=== PATIENT | male | born 1970 | race Two or more races ===

== ENCOUNTER 2020-11-21 11:37 | Outpatient (REF) | payer MEDICAID, SELFPAY ==
--- NOTE | ~2020-11-21 | XR_ITS ---
EXAMINATION: XR FOOT, RIGHT CLINICAL INFORMATION: Pain right first and fourth toes COMPARISON: None TECHNIQUE: AP, lateral, and oblique views of the right foot. FINDINGS: Bone alignment is normal. No acute fracture or dislocation is seen. On the AP view there is question of an old healed oblique fracture of the distal shaft of the fourth metatarsal bone. Joint spaces are normal. Soft tissues are normal. XR/XR foot RT min 3V IMPRESSION: No acute fracture or dislocation seen.
== END 2020-11-21 11:38 | disposition home or self-care (01) ==
LOC: HO.XRAY 11:37
PROVIDERS: Visit Provider Emergency Medicine
DX: M79.674 Pain in right toe(s) (principal)
CPT/HCPCS: 73630

== ENCOUNTER 2021-02-05 11:44 | Outpatient (REF) | payer MEDICAID, SELFPAY ==
--- NOTE | ~2021-02-05 | XR_ITS ---
EXAMINATION: XR SHOULDER, RIGHT CLINICAL INFORMATION: Pain COMPARISON: None TECHNIQUE: AP external rotation, Grashey, scapular Y, and axillary views of the right shoulder. FINDINGS: The bones and soft tissues are normal. No fracture. Glenohumeral and acromioclavicular alignment is anatomic with normal joint space. No abnormal soft tissue calcifications. XR/XR shoulder RT min 2V IMPRESSION: Normal right shoulder.
== END 2021-02-05 11:45 | disposition home or self-care (01) ==
LOC: HO.XRAY 11:44
PROVIDERS: PCP Internal Medicine; Visit Provider Student in an Organized Health Care Education/Training Program
DX: M25.511 Pain in right shoulder (principal)
CPT/HCPCS: 73030

== ENCOUNTER 2021-03-12 12:15 | Emergency (ER) | payer MEDICAID, SELFPAY ==
--- NOTE | ~2021-03-12 | US_ITS ---
EXAMINATION: US SCROTUM CLINICAL INFORMATION: Swelling. COMPARISON: None TECHNIQUE: A sonogram of the scrotum was performed assessing pineda-scale appearance and color Doppler flow. Spectral Doppler analysis of the arterial and venous flow were performed in the testes bilaterally. FINDINGS: RIGHT: Right testicle measures 3.7 x 2.3 x 2.7 cm, volume 12 mL. No focal testicular parenchymal lesions are visualized. Spectral Doppler analysis of the arterial and venous flow is normal in the right testis. Right epididymal head is normal in size. No right hydrocele or varicocele is seen. Right epididymal Doppler flow is normal. LEFT: Left testicle measures 3.5 at 2.1 x 3.0 cm, volume 11.2 mL. No focal testicular parenchymal lesions are visualized. Spectral Doppler analysis of the arterial and venous flow is normal in the left testis. Left epididymal head is normal in size. There is small hypoechoic mass in the tail of the left epididymis No left hydrocele or varicocele is seen. Left epididymal Doppler flow is normal. Incidental finding of a slightly hypervascular lesion in the left epididymal tail measuring 0.7 x 0.7 x 0.6 cm. 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 Differential diagnoses includes sperm granuloma, leiomyoma less likely infection or malignancy Otherwise both testes and the right epididymis appears unremarkable. There is no hydrocele or varicocele.
--- NOTE | ~2021-03-12 | US_ITS ---
EXAMINATION: US SCROTUM CLINICAL INFORMATION: Swelling. COMPARISON: None TECHNIQUE: A sonogram of the scrotum was performed assessing pineda-scale appearance and color Doppler flow. Spectral Doppler analysis of the arterial and venous flow were performed in the testes bilaterally. FINDINGS: RIGHT: Right testicle measures 3.7 x 2.3 x 2.7 cm, volume 12 mL. No focal testicular parenchymal lesions are visualized. Spectral Doppler analysis of the arterial and venous flow is normal in the right testis. Right epididymal head is normal in size. No right hydrocele or varicocele is seen. Right epididymal Doppler flow is normal. LEFT: Left testicle measures 3.5 at 2.1 x 3.0 cm, volume 11.2 mL. No focal testicular parenchymal lesions are visualized. Spectral Doppler analysis of the arterial and venous flow is normal in the left testis. Left epididymal head is normal in size. There is small hypoechoic mass in the tail of the left epididymis No left hydrocele or varicocele is seen. Left epididymal Doppler flow is normal. Incidental finding of a slightly hypervascular lesion in the left epididymal tail measuring 0.7 x 0.7 x 0.6 cm. 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 Differential diagnoses includes sperm granuloma, leiomyoma less likely infection or malignancy Otherwise both testes and the right epididymis appears unremarkable. There is no hydrocele or varicocele.
[2021-03-12 12:41] VITALS: BP 127/86; PULSE 76; RESP 16; TEMP 36.4; O2SAT 96; BMI 34.3
[2021-03-12 14:04] LABS: Glucose Urine UA NEG (NEG); Leukocyte Esterase Urine NEG (NEG); Nitrite Urine NEG (NEG); Specific Gravity - Urine 1.025 (1.005-1.025); Urine Blood TRACE (NEG); Urine Ketones NEG (NEG); Urine Protein NEG (NEG-TRACE)
[2021-03-12 14:09] LABS: Appearance Urine CLEAR; Color Urine STRAW
--- NOTE | 2021-03-12 14:25 | ED.MALEGU ---
HPI - Male Genitourinary General Chief complaint: Urogenital-Male Stated complaint: cyst Time Seen by Provider: 03/12/21 12:43 History of Present Illness HPI Narrative: Patient complains of left testicle lump that is uncomfortable and has been there for several years and is mildly worsening, there is no dysuria there is no fever no vomiting no abdominal pain no discharge Related Data Allergies Allergy/AdvReac Type Severity Reaction Status Date / Time FUMES - DEISEL AdvReac Unknown STUFFY Uncoded 06/15/20 16:44 HEAD, RUNNY NOSE Review of Systems Review of Systems: Testicular lump Negatives are no fever no chills no dizziness no weakness no abdominal pain no dysuria no frequency no burning with urination no discharge no rash no sores Yes all other systems are reviewed and are negative [facility] Past Medical History Source: nursing notes reviewed Medical History (Updated 03/13/21 @ 00:01 by Nir Bain) HTN (hypertension) Testicular lump Vitamin D deficiency Physical Exam Vital Signs: Vital Signs: Last Vital Signs Temp 97.6 F 03/12/21 12:41 Pulse 76 03/12/21 12:41 Resp 16 03/12/21 12:41 BP 127/86 03/12/21 12:41 Pulse Ox 96 03/12/21 12:41 Body Mass Index 34.3 General appearance no acute distress Head normocephalic atraumatic Pharynx moist mucous membranes Neck is supple Respiratory no distress Abdomen soft nontender Genital exam the year is no discharge there are no lesions no sores no hernia I could not palpate the lump but the patient points to it and can palpated himself, there was no other testicular swelling no redness no fluctuance no sign of abscess or cellulitis Course Course Course Narrative: 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 Patient is advised to follow with urologist for confirmation of diagnosis and he will follow closely with Urology MDM - Male Genitourinary Lab Data Labs: Lab Results 03/12/21 03/12/21 Range/Units 13:54 13:55 Urine Color STRAW Urine Appearance CLEAR Urine pH 6.0 (5.0-8.0) Ur Specific Seibert 1.025 (1.005-1.025) Urine Protein NEG (NEG-TRACE) MG/DL Urine Glucose (UA) NEG (NEG) MG/DL Urine Ketones NEG (NEG) MG/DL Urine Blood TRACE (NEG) Urine Nitrite NEG (NEG) Ur Leukocyte Esterase NEG (NEG) Urine RBC 1-4 (0) /HPF Urine WBC 0 (0-4) /HPF Ur Squamous Epith Cells NONE /LPF Urine Bacteria NONE /LPF Chlam trachomat DNA PCR NOT DETECTED (Not Detect.) N.gonorrhoeae DNA (PCR) NOT DETECTED (Not Detect.) Discharge Plan Discharge Clinical Impression: Mass of left testicle Patient Disposition: Home, Self-Care Additional Instructions: The ultrasound showed showed what is likely a benign tumor meaning not cancerous called adenomatoid tumor Follow with urologist for further evaluation and to confirm the diagnosis and for any possible treatment When you call to make her appointment make sure they know you were seen in the ER You may need a referral from primary doctor Return any time any worse condition or concerns Referrals: Bernardo Zhang MD [Physician] - 2 days (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
[2021-03-12 14:35] LABS: WBC Urine 0 /HPF (0-4)
[2021-03-12 17:22] LABS: CT PCR NOT DETECTED (Not Detect.); NG PCR NOT DETECTED (Not Detect.)
== END 2021-03-12 15:12 | disposition home or self-care (01) ==
PROVIDERS: Physician Assistant Medical; Emergency Provider Emergency Medicine Emergency Medical Services; PCP Internal Medicine
DX: N50.9 Disorder of male genital organs, unspecified (principal)
CPT/HCPCS: 76870; 81001; 81003; 87491; 87591; 93975; 99283; 99284

== ENCOUNTER 2021-03-25 13:16 | Emergency (ER) | payer MEDICAID, SELFPAY ==
[2021-03-25 13:48] VITALS: BP 98/68; PULSE 83; RESP 18; TEMP 36.8; O2SAT 94; BMI 34.4
[2021-03-25 15:14] LABS: MANUAL DIFF FLAG NO
[2021-03-25 15:16] LABS: Basophils Percent Auto 0.3 % (0-2); Eosinophils Absolute Auto 0.1 X10*3/uL (0.0-0.4); Eosinophils Percent Auto 0.8 % (0-4); Hematocrit 41.9 % (42-52); Hemoglobin 13.8 g/dl (14.0-18.0); Imm Gran Abs Auto 0.04 X10*3/uL (0.00-0.03); Imm Gran Pct Auto 0.4 % (0.0-0.4); Lymphocytes Absolute Auto 1.6 X10*3/uL (1.2-4.9); Lymphocytes Percent Auto 17.3 % (20-40); Mean Corpuscular HGB Conc 32.9 g/dl (31.0-36.0); Mean Corpuscular Hemoglobin 28.5 pg (27.0-33.0); Mean Corpuscular Volume 86.4 fL (80-98); Mean Platelet Volume 10.2 fL (9.4-12.4); Monocytes Absolute Auto 0.5 X10*3/uL (0.1-1.2); Monocytes Percent Auto 5.4 % (2-11); Neutrophils Absolute Auto 6.8 X10*3/uL (2.0-8.3); Neutrophils Percent Auto 75.8 % (45-73); Platelet Count 288 X10*3/uL (160-400); Red Blood Count 4.85 X10*6/uL (4.60-5.80); Red Cell Distribution Width 14.7 % (11.0-16.0)
--- NOTE | 2021-03-25 15:24 | ED_ITS ---
HPI - General Adult General Chief complaint: Extremity Problem Stated complaint: R ARM PAIN WEAKNESS GOING UP STAIRS Time Seen by Provider: 03/25/21 14:17 Source: patient Mode of arrival: ambulatory Limitations: no limitations History of Present Illness HPI narrative: 51-year-old male presenting to the ED with complaints of acute on chronic right shoulder pain after swimming yesterday no specific injury. Reports he has had this pain in the past and received a shot although he is unsure what type of shot in his right posterior shoulder approximately 6 weeks ago and feels like the effectiveness has worn off and is requesting for repeat shot. Although explained to him I am not aware of what shot he received and if it was a cortisone shot that we do not do cortisone shots here in the emergency department. I also looked in the medical records and I do not see any note from his PCP in our system. He is also requesting blood work done reports he had a few seconds of dizziness yesterday that completely resolved all he was at home and have not returned. He denies any other symptoms complaints or concerns at this time. Related Data Previous Rx's Medication Instructions Recorded cyclobenzaprine 10 mg PO Q8H #10 tab 03/25/21 ibuprofen 800 mg PO Q8H PRN #14 tab 03/25/21 lidocaine HCl [Aspercreme 1 appl TOPICAL BID PRN #120 g 03/25/21 (lidocaine HCl)] Allergies Allergy/AdvReac Type Severity Reaction Status Date / Time FUMES - DEISEL AdvReac Unknown STUFFY Uncoded 06/15/20 16:44 HEAD, RUNNY NOSE Review of Systems Review of Systems: Constitutional : No changes in activity, No lethargy, No recent prior head injury, No agitation, No increased fussiness ENT/Mouth : No Ear Pain, No Nasal discharge/drainage Eyes: No Eye Pain, No Swelling, No Redness, No Foreign Body, No Vision Changes Cardiovascular : No Chest Pain, No SOB Respiratory : No Cough Gastrointestinal : No Nausea, No Vomiting, No abdominal Pain Genitourinary : No Dysuria, No Urinary Frequency, No Urinary Incontinence, No Urgency, No Flank Pain Musculoskeletal : + joint pain, No neck stiffness, No back pain/injury Skin : No lacerations Neuro : Positive Resolved Dizziness, No unsteady gait, No Paresthesias, No Loss of Consciousness, No altered mental status, No Headache Yes all other systems are reviewed and are negative [facility] Past Medical History Attestation statement: The following information was validated with the patient. Medical History HTN (hypertension) Testicular lump Vitamin D deficiency Social History Social History Advance Directives: Yes Advance Directives Information Provided: Yes Advance Directives on File: No Physical Exam Vital Signs: Vital Signs: Last Vital Signs Temp 98.2 F 03/25/21 13:48 Pulse 83 03/25/21 13:48 Resp 18 03/25/21 13:48 BP 98/68 03/25/21 13:48 Pulse Ox 94 03/25/21 13:48 Body Mass Index 34.4 vital signs have been reviewed as normal and appeared to be correct. Blood pressure normal. Heart rate normal. Respiration rate normal. Temperature normal. Oxygen saturation normal. Appearance: Alert. Oriented X3. No acute distress. Head: Normal external exam. Normocephalic. Atraumatic. No Perkins signs noted. No raccoon eyes noted Eyes: PERRLA. EOMI. Conjunctiva and sclera normal. Eyelids normal. ENT: EAC normal. TM's Normal. Pharynx normal. Uvula midline. Moist mucous membr anes. No trismus noted. No drooling noted. No muffled voice noted. Neck: Normal inspection. Neck supple. FROM. No adenopathy. Thyroid Normal. No meningeal signs. No neck mass noted. CVS: Normal heart rate and rhythm. Heart sound normal. Pulses normal throughout. No murmurs/rales/gallops. Respiratory: No respiratory distress. Painless inspiration. Breath sounds normal. No wheezes/rales/rhonchi noted. Chest nontender. No accessory muscle usage noted or decreased air movement noted. Abdomen: Soft and nontender. Bowel sounds normal in all 4 quadrants. No distention noted. No organomegaly noted. No visible injury noted. Back: No CVA tenderness. Full range of motion noted. No rashes/le tiara/induration/fluctuance or signs of infection noted. Skin: Skin warm and dry. Normal skin color. Normal skin turgor. No rashes/lesions/lacerations noted. Extremities: No lower extremity edema. Extremities exhibit normal range of motion. Extremities nontender. Neuro: Oriented X 3. No motor deficit. No sensory deficit. Reflexes normal. Normal steady gait. No focal neuro deficits noted. Vascular: + radial pulses/+ 2 distal pedal pulses/+2 dorsalis pedis b/l. Normal cap refill. No cyanosis noted to upper extremity nails and lower extremity toes nails. Course Course Course Narrative: 14:40pm - 51-year-old male presenting to the ED with complaints of acute on chronic right shoulder pain after swimming yesterday no specific injury. Reports he has had this pain in the past and received a shot although he is unsure what type of shot in his right posterior shoulder approximately 6 weeks ago and feels like the effectiveness has worn off and is requesting for repeat shot. Although explained to him I am not aware of what shot he received and if it was a cortisone shot that we do not do cortisone shots here in the emergency department. I also looked in the medical records and I do not see any note from his PCP in our system. He is also requesting blood work done reports he had a few seconds of dizziness yesterday that completely resolved all he was at home and have not returned. He denies any other symptoms complaints or concerns at this time. Plan: Labs. Then re-evaluate. Reevaluation(s) Reevaluation #1: - Labs returned and at baseline. Will d/c home c symptomatic tx and instructions to f/u c PCP and to return if any new or worsening symptoms. Pt understands and agrees with plan. Time: 15:44 Medical Decision Making Medical Records Medical records reviewed: Yes I reviewed the patient's medical records. Lab Data Lab results reviewed: Yes I reviewed the patient's lab results. Result diagrams: 03/25/21 15:06 03/25/21 15:06 Labs: Lab Results 03/25/21 Range/Units 15:06 WBC 9.0 (4.8-10.8) X10*3/uL RBC 4.85 (4.60-5.80) X10*6/uL Hgb 13.8 L (14.0-18.0) g/dl Hct 41.9 L (42-52) % MCV 86.4 (80-98) fL MCH 28.5 (27.0-33.0) pg MCHC 32.9 (31.0-36.0) g/dl RDW 14.7 (11.0-16.0) % Plt Count 288 (160-400) X10*3/uL MPV 10.2 (9.4-12.4) fL Immature Gran % (Auto) 0.4 (0.0-0.4) % Neut % (Auto) 75.8 H (45-73) % Lymph % (Auto) 17.3 L (20-40) % [place] % (Auto) 5.4 (2-11) % Eos % (Auto) 0.8 (0-4) % Baso % (Auto) 0.3 (0-2) % Lymph # (Auto) 1.6 (1.2-4.9) X10*3/uL [place] # (Auto) 0.5 (0.1-1.2) X10*3/uL Eos # (Auto) 0.1 (0.0-0.4) X10*3/uL Baso # (Auto) 0.0 (0.0-0.2) X10*3/uL Abs Immat Gran (auto) 0.04 H (0.00-0.03) X10*3/uL Absolute Neuts (auto) 6.8 (2.0-8.3) X10*3/uL Absolute Nucleated RBC 0.000 (0.0-0.012) X10*3/uL Nucleated RBC % (auto) 0.0 (0.0-0.2) /100WBC Discharge Plan Discharge Clinical Impression: Right shoulder strain Patient Disposition: Home, Self-Care Instructions: Shoulder Pain (ED) Prescriptions: New cyclobenzaprine 10 mg tablet 10 mg PO Q8H Qty: 10 RF: 0 ibuprofen 800 mg tablet 800 mg PO Q8H PRN (Reason: pain) Qty: 14 RF: 0 lidocaine HCl [Aspercreme (lidocaine HCl)] 4 % cream 1 appl topical BID PRN (Reason: pain) Qty: 120 RF: 0 Referrals: Ricardo Ocampo MD [Primary Care Provider] - 2 days Print Language: Northern Irish
[2021-03-25 15:41] LABS: Alanine Aminotransferase 15 U/L (0-40); Albumin Level 4.8 g/dL (3.5-5.0); Alkaline Phosphatase 62 U/L (39-117); Anion Gap 14 (12-20); Aspartate Amino Transferase 17 U/L (5-37); Bilirubin Total 0.4 mg/dL (0.0-1.0); Blood Urea Nitrogen 23 mg/dL (9-16); Calcium 9.7 mg/dL (8.4-10.2); Carbon Dioxide 27 mmol/L (22-29); Chloride 104 mmol/L (96-108); Creatinine Clr Calc Pharmacy 85.9; Estimated Glomerular Filt Rate > 60; Glucose Random 94 mg/dL (60-115); Magnesium 2.2 mg/dL (1.6-2.6); Potassium 4.4 mmol/L (3.3-5.1); Sodium 141 mmol/L (135-145); Total Protein 7.8 g/dL (6.5-8.0)
== END 2021-03-25 15:52 | disposition home or self-care (01) ==
PROVIDERS: Physician Assistant Medical; Emergency Provider Internal Medicine; PCP Internal Medicine
DX: S46.911A Strain of unspecified muscle, fascia and tendon at shoulder and upper arm level, right arm, initial encounter (principal); X58.XXXA Exposure to other specified factors, initial encounter; Y93.11 Activity, swimming; Y92.9 Unspecified place or not applicable; Y99.9 Unspecified external cause status
CPT/HCPCS: 36415; 80053; 83735; 85025; 99283

== ENCOUNTER → 2021-04-25 10:11 | Outpatient (BNVA) | payer MEDICAID, SELFPAY | PROVIDERS: PCP Internal Medicine; Visit Provider Orthopaedic Surgery | DX: M75.41 Impingement syndrome of right shoulder (principal) | CPT/HCPCS: 99202 ==

== ENCOUNTER 2021-05-24 10:00 | Outpatient (RCR) | payer MEDICAID, SELFPAY ==
--- NOTE | 2021-05-09 13:44 | MHC.PT.EP ---
[facility] [place] Office [place] Office [place] Office [address] Cristina Padron [address] [phone] F: [phone] F: [phone] F: [phone] F: [phone] Physical Therapy Plan of Care Date of Evaluation: Date of Surgery: N/A Diagnosis: R shoulder impingement Assessment: pt's signs and symptoms consistent w/ shoulder impingement w/ questionable tendinitis. pt presents to physical therapy with pain, decreased range of motion, decreased strength, impaired functional mobility, and impaired postural awareness. pt is a good candidate for skilled PT due to age, potential remediation of impairments, typical disease/condition progression and prognosis, comorbidities, and motivation. pt would benefit from tailored strengthening and stretching exercise program, functional training, gait training, postural re-training, neuromuscular re-education, modalities as needed for pain, equipment safety demonstration. Frequency and Duration: The patient will be seen 2x/wk for 4 wks Short Term Goals: pt will be I w/ HEP to promote self-management of condition. pt will improve R shoulder flexion by 15 degrees to promote ease in reaching for objects on higher shelves. Nuclear Medicine Chief Technologist Goals: pt will report a statistically significant improvement in self-reported outcome measure, SPADI, to promote return to PLOF. pt will report <6/10 R shoulder pain w/ lifting/carrying 10# object to promote return to PLOF. Treatment Plan: Modalities to reduce pain, spasms and effusion. Manual therapy to restore motion and function. Therapeutic exercise to improve strength and flexibility. Neuromuscular re-education for posture and balance. Therapeutic activities to return to functional activities of daily living. Electronically signed by: Therese Correa PT, DPT Please sign and return to therapist. Thank you for your referral.
--- NOTE | 2021-06-12 11:24 | MHC.PT.DC ---
[facility] [place] Office [place] Office [place] Office [address] Padron [address] [facility] [phone] F: [phone] F: [phone] F: [phone] F: [phone] Physical Therapy Discharge Report Diagnosis: R shoulder impingement Date of Surgery: N/A Date of Evaluation: 05/09/21 Date of Discharge: 06/12/21 Treatments to Date: 4 Cancellations to Date: 4 No Shows to Date: 2 Discharge Status: Visit Non-compliance Discharge Summary: The patient was reporting an improvement in his shoulder pain with physical therapy intervention. He has had poor attendance and is being discharged for visit non-compliance. His current status is unknown. Electronically signed by: Therese Correa PT, DPT Please sign and return to therapist. Thank you for your referral.
== END 2021-06-12 11:25 | disposition home or self-care (01) ==
LOC: HO.PT 10:00
PROVIDERS: PCP Internal Medicine; Visit Provider Orthopaedic Surgery
DX: M75.41 Impingement syndrome of right shoulder (principal)
CPT/HCPCS: 97110; 97140; 97150; 97161

== ENCOUNTER → 2021-05-25 13:19 | Outpatient (BNVA) | payer MEDICAID, SELFPAY | PROVIDERS: PCP Internal Medicine; Referring Provider Internal Medicine; Visit Provider Urology | DX: R31.29 Other microscopic hematuria (principal); N50.89 Other specified disorders of the male genital organs; I10 Essential (primary) hypertension; E55.9 Vitamin D deficiency, unspecified; T78.49XA Other allergy, initial encounter | CPT/HCPCS: 81002; 99202 ==

== ENCOUNTER 2021-05-25 14:28 | Outpatient (REF) | payer MEDICAID, SELFPAY ==
--- NOTE | ~2021-05-25 | US_ITS ---
EXAMINATION: US RETROPERITONEAL COMPLETE (RENAL) CLINICAL INFORMATION: Microscopic hematuria. COMPARISON: Previous CT of the abdomen and pelvis most recent October 2017 TECHNIQUE: Real-time imaging of the kidneys and bladder. FINDINGS: RIGHT KIDNEY: 11.1 x 5.8 x 5.5 cm (SAG x AP x TRV). The kidney is normal in size, contour, and echogenicity. Renal cortical thickness is normal. No calculi or focal parenchymal lesions. No hydronephrosis. LEFT KIDNEY: 12 x 7 x 5.7 cm (SAG x AP x TRV). The kidney is normal in size, contour, and echogenicity. Renal cortical thickness is normal. There is a large cyst exophytic to the mid to lower pole the left kidney measuring 10.6 x 7.3 x 8.9 cm. No calculi. No hydronephrosis. BLADDER: Well distended and normal. Bilateral ureteral jets are demonstrated. Prevoid bladder volume is 144 mL. Postvoid bladder volume is 10 mL. The prostate gland measures 4.3 x 3.7 x 3.6 cm, volume 30 mL. US/US retroperitoneal comp IMPRESSION: Normal right kidney. Large left renal cyst. Normal bladder. Slightly enlarged prostate gland..
== END 2021-05-25 14:29 | disposition home or self-care (01) ==
LOC: HO.US 14:28
PROVIDERS: PCP Internal Medicine; Visit Provider Urology
DX: R10.9 Unspecified abdominal pain (principal); R31.29 Other microscopic hematuria
CPT/HCPCS: 76770

== ENCOUNTER 2021-07-23 17:05 | Outpatient (REF) | payer MEDICAID, SELFPAY ==
[2021-07-23 17:22] LABS: MANUAL DIFF FLAG NO
[2021-07-23 17:54] LABS: Basophils Percent Auto 0.5 % (0-2); Eosinophils Absolute Auto 0.4 X10*3/uL (0.0-0.4); Eosinophils Percent Auto 4.4 % (0-4); Hematocrit 42.3 % (42-52); Imm Gran Abs Auto 0.03 X10*3/uL (0.00-0.03); Imm Gran Pct Auto 0.4 % (0.0-0.4); Lymphocytes Percent Auto 23.9 % (20-40); Mean Corpuscular HGB Conc 33.1 g/dl (31.0-36.0); Mean Corpuscular Hemoglobin 28.4 pg (27.0-33.0); Mean Corpuscular Volume 85.8 fL (80-98); Mean Platelet Volume 10.3 fL (9.4-12.4); Monocytes Absolute Auto 0.5 X10*3/uL (0.1-1.2); Monocytes Percent Auto 6.3 % (2-11); Neutrophils Absolute Auto 5.3 X10*3/uL (2.0-8.3); Neutrophils Percent Auto 64.5 % (45-73); Platelet Count 307 X10*3/uL (160-400); Red Blood Count 4.93 X10*6/uL (4.60-5.80); Red Cell Distribution Width 14.1 % (11.0-16.0); White Blood Count 8.2 X10*3/uL (4.8-10.8)
[2021-07-23 18:02] LABS: Estimated Average Glucose 111 mg/dL; Hemoglobin A1c % 5.5 %
[2021-07-23 18:15] LABS: Alanine Aminotransferase 12 U/L (0-40); Albumin Level 4.8 g/dL (3.5-5.0); Alkaline Phosphatase 70 U/L (39-117); Anion Gap 14 (12-20); Aspartate Amino Transferase 14 U/L (5-37); Bilirubin Total 0.5 mg/dL (0.0-1.0); Blood Urea Nitrogen 16 mg/dL (9-16); Calcium 9.3 mg/dL (8.4-10.2); Carbon Dioxide 26 mmol/L (22-29); Chloride 102 mmol/L (96-108); Cholesterol 240 mg/dL; Estimated Glomerular Filt Rate > 60; Glucose Random 90 mg/dL (60-115); HDL Cholesterol 51 mg/dL; LDL Cholesterol Calculated 154 mg/dl; Potassium 3.9 mmol/L (3.3-5.1); Sodium 138 mmol/L (135-145); Total Protein 7.7 g/dL (6.5-8.0); Triglycerides 176 mg/dL
[2021-07-23 18:15] LABS: Creatinine Urine 191.22 mg/dL; Microalbum/Creatinine Ratio Ur 7.8 ug/mg cr
[2021-07-23 18:50] LABS: T4 Thyroxine 6.8 ug/dL (4.5-12.0); Thyroid Stimulating Hormone 1.38 uIU/mL (0.32-4.0); Vitamin D 25-OH Total 17.7 ng/mL (>30)
[2021-07-24 18:11] LABS: Triiodothyronine T3 Total 92 ng/dL (76-181)
== END 2021-07-23 17:06 | disposition home or self-care (01) ==
LOC: HO.LAB 17:05
PROVIDERS: PCP Family Medicine; Visit Provider Family Medicine
DX: E66.09 Other obesity due to excess calories (principal); I10 Essential (primary) hypertension
CPT/HCPCS: 36415; 80053; 80061; 82043; 82306; 83036; 84436; 84443; 84480; 85025

== ENCOUNTER 2021-10-05 17:57 | Emergency (ER) | payer MEDICAID, SELFPAY ==
--- NOTE | ~2021-10-05 | US_ITS ---
EXAMINATION: US SCROTUM CLINICAL INFORMATION: Left-sided testicular pain.. COMPARISON: Scrotal ultrasound 03/12/2021 TECHNIQUE: A sonogram of the scrotum was performed assessing pineda-scale appearance and color Doppler flow. Spectral Doppler analysis of the arterial and venous flow were performed in the testes bilaterally. FINDINGS: Small echogenic foci in the parenchyma of both the right and left testicle suggesting microlithiasis. RIGHT: Right testicle measures 3.9 x 2.2 x 2.9 cm, volume 13.1 mL. No focal testicular parenchymal lesions are visualized. Spectral Doppler analysis of the arterial and venous flow is normal in the right testis. Right epididymal head is normal in size. No right hydrocele or varicocele is seen. Right epididymal Doppler flow is normal. LEFT: Left testicle measures 3.6 x 2.3 x 3 cm, volume 13 mL. No focal testicular parenchymal lesions are visualized. Spectral Doppler analysis of the arterial and venous flow is normal in the left testis. The small hypoechoic vascular lesion at the tail of the left epididymis redemonstrated unchanged since 03/12/2021. This currently measures 1.1 x 0.8 x 1.1 cm. Previous measurement 0.9 x 0.7 x 0.9 cm. No left hydrocele or varicocele is seen. US/US scrotum doppler IMPRESSION: 1. No acute abnormality of the right and left testicle. No evidence of testicular torsion. 2. Redemonstration of the hypoechoic vascular mass at the tail the left epididymis.
[2021-10-05 18:28] VITALS: BP 104/72; PULSE 85; RESP 18; TEMP 36.8; O2SAT 95; BMI 33.4
[2021-10-05 21:42] LABS: Appearance Urine CLEAR; Color Urine YELLOW; Glucose Urine UA NEG (NEG); Leukocyte Esterase Urine NEG (NEG); Nitrite Urine NEG (NEG); UACC Culture Trigger NO; Urine Blood TRACE (NEG); Urine Ketones NEG (NEG); Urine Protein NEG (NEG-TRACE)
--- NOTE | 2021-10-05 21:43 | ED_ITS ---
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 Sexually inactive, no penile discharge or lesions otherwise, decline risk for STDs. Patient had this mass evaluated by Dr. Zhang (urologist) determined to be 7 mm epidermoid cyst on the left epididymis and was recommended for excision but patient refuses then. Patient stated that the pain and thighs is getting bigger. Related Data Home Medications Medication Instructions Recorded Confirmed losartan 50 mg tablet 50 mg PO DAILY 04/25/21 cyclobenzaprine 10 mg tablet 10 mg PO Q8H tab 05/25/21 Previous Rx's Medication Instructions Recorded ibuprofen 800 mg tablet 800 mg PO Q8H PRN #14 tab 03/25/21 lidocaine HCl 4 % topical cream 1 appl TOPICAL BID PRN #120 g 03/25/21 (Aspercreme (lidocaine HCl)) diclofenac sodium 75 mg 75 mg PO BID #60 tab 04/25/21 tablet,delayed release Allergies Allergy/AdvReac Type Severity Reaction Status Date / Time FUMES - DEISEL AdvReac Unknown STUFFY Uncoded 10/05/21 18:27 HEAD, RUNNY NOSE Review of Systems Review of Systems: All other systems are reviewed and are negative Constitutional: Reports as per HPI and Reports no additional constitutional complaints Eyes: Reports as per HPI and Reports no additional eye complaints Reports system reviewed and no additional complaints, except as documented Cardiovascular: Reports as per HPI and Reports no additional cardiovascular complaints Respiratory: Reports as per HPI and Reports no additional respiratory complaints Gastrointestinal: Reports as per HPI and Reports no additional gastrointestinal complaints Genitourinary: Reports no additional female genitourinary complaints Musculoskeletal: Reports no additional musculoskeletal complaints Skin/Breast: Reports system reviewed and no additional complaints, except as docu Psychiatric: Reports no additional psychiatric complaints Endocrine: Reports no additional endocrine complaints Hematologic/Lymphatic: Reports no additional hematologic/lymphatic complaints Allergic/Immunologic: Reports no additional allergic/immunologic complaints Reports system reviewed and no additional complaints, except as documented and Reports Abnormal speech present [facility] Past Medical History Medical History HTN (hypertension) Testicular lump Vitamin D deficiency Surgical History History of appendectomy Family History Family History Father Heart disease Mother Heart disease HTN (hypertension) Arthritis Depression Social History Social History Patient Tobacco Use Status: Never used Tobacco Advance Directives: No Advance Directives Information Provided: No Current occupational status: unemployed Physical Exam Vital Signs: Vital Signs: Last Vital Signs Temp 98.2 F 10/05/21 18:28 Pulse 85 10/05/21 18:28 Resp 18 10/05/21 18:28 BP 104/72 10/05/21 18:28 Pulse Ox 95 10/05/21 18:28 BMI result Body Mass Index 33.4 vital signs have been reviewed as appeared to be correct. Blood pressure normal. Heart rate normal. Respiration rate normal. Temperature normal. Oxygen saturation normal. Appearance: Alert. Oriented X3. No acute distress. Head: Normal external exam. Normocephalic. Atraumatic. No Perkins signs noted. No raccoon eyes noted Eyes: PERRLA. EOMI. Conjunctiva and sclera normal. Eyelids normal. ENT: TM's Normal. Pharynx normal. Uvula midline. Moist mucous membranes. No trismus noted. No drooling noted. No muffled voice noted. Neck: Normal inspection. Neck supple. FROM. No adenopathy. Thyroid Normal. No meningeal signs. No neck mass noted. CVS: Normal heart rate and rhythm. Heart sound normal. No murmurs noted. Pulses normal throughout. Respiratory: No respiratory distress. Painless inspiration. Breath sounds normal. No wheezes/rales/rhonchi noted. Chest nontender. No accessory muscle usage noted or decreased air movement noted. Abdomen: Soft and nontender. Bowel sounds normal in all 4 quadrants. No distention noted. No organomegaly noted. No visible injury noted. : Non circumcised, no discharge or lesion is appreciated, mild left testicular tenderness no appreciated mass or cyst. Back: No CVA tenderness. Full range of motion noted. Skin: Skin warm and dry. Normal skin color. Normal skin turgor. No rashes/lesions/lacerations noted. Extremities: No lower extremity edema. Extremities exhibit normal range of motion. Extremities nontender. Neuro: Oriented X 3. Cranial nerve exam: II-XII are grossly intact No motor deficit. No sensory deficit. Reflexes normal. Course Course Course Narrative: Assessment and plan. Left epidermoid mass, previously evaluated by Dr. Zhang he recommended excision but the patient postponed the procedure, the patient returned today for injuries pain and the size of the left testicular pain. Will refer to Dr. Zhang, recommend elevation of the scrotum, avoid standing or sitting for long time, use NSAIDs p.r.n.. MDM - Male Genitourinary Medical Records Attestation: I reviewed the patient's medical records. Lab Data Attestation: I reviewed the patient's lab results. Labs: Lab Results 10/05/21 Range/Units 21:28 Urine Color YELLOW Urine Appearance CLEAR Urine pH 6.0 (5.0-8.0) Ur Specific [place] 1.020 (1.005-1.025) Urine Protein NEG (NEG-TRACE) MG/DL Urine Glucose (UA) NEG (NEG) MG/DL Urine Ketones NEG (NEG) MG/DL Urine Blood TRACE (NEG) Urine Nitrite NEG (NEG) Ur Leukocyte Esterase NEG (NEG) Urine RBC 0-2 (0) /HPF Urine WBC 0 (0-4) /HPF Ur Squamous Epith Cells TRACE /LPF Urine Bacteria TRACE /LPF Hyaline Casts 0-2 /LPF Urine Mucus 3+ /LPF Imaging Data Scrotal ultrasound: Attestation: I personally reviewed and interpreted this imaging study as follows: Radiologist's impression: 1. No acute abnormality of the right and left testicle. No evidence of testicular torsion. 2. Redemonstration of the hypoechoic vascular mass at the tail the left epididymis. Discharge Plan Discharge Clinical Impression: Testicular lump Patient Disposition: Home, Self-Care Instructions: Scrotal Pain (ED) Additional Instructions: avoid sitting or standing for all times. Elevate the scrotum by putting a towel between your psi and restore scrotum on a curb, use ibuprofen 200 mg every 6 hours if needed for pain or swelling. Make sure follow-up with Dr. Zhang as instructed. Prescriptions: No Action ibuprofen 800 mg tablet 800 mg PO Q8H PRN (Reason: pain) Qty: 14 RF: 0 lidocaine HCl [Aspercreme (lidocaine HCl)] 4 % cream 1 appl topical BID PRN (Reason: pain) Qty: 120 RF: 0 cyclobenzaprine 10 mg tablet 10 mg PO Q8H RF: 0 losartan 50 mg tablet 50 mg PO DAILY RF: 0 diclofenac sodium 75 mg tablet,delayed release (DR/EC) 75 mg PO BID Qty: 60 RF: 2 Referrals: Bernardo Zhang MD [Physician] - 2 days
[2021-10-05 21:50] LABS: Hyaline Casts Urine 0-2 /LPF; Mucus Urine 3+ /LPF; Squamous Epithelial Cell Urine TRACE /LPF
[2021-10-05 21:51] LABS: Bacteria Urine TRACE /LPF; RBC Urine 0-2 /HPF (0); WBC Urine 0 /HPF (0-4)
== END 2021-10-05 23:17 | disposition home or self-care (01) ==
PROVIDERS: Emergency Provider Emergency Medicine; PCP Family Medicine
DX: N50.3 Cyst of epididymis (principal)
CPT/HCPCS: 81001; 93975; 99283; 99284

== ENCOUNTER → 2021-10-16 10:47 | Outpatient (BNVA) | payer MEDICAID, SELFPAY | PROVIDERS: Visit Provider Urology ==

== ENCOUNTER 2021-11-12 12:05 | Day surgery (SDC) | payer MEDICAID, SELFPAY ==
[2021-11-06 11:09] VITALS: BMI 34.4
--- NOTE | 2021-11-09 10:21 | HO.ANESPROP2 ---
Documented by User: Francy Singh NP 11/09/21 10:22 HPI - Anesthesia Eval Consult details Narrative: 51yo M for Excision Spermatocele PMFSH Active Problems Active Problems: All Active Problems (Updated 11/06/21 @ 11:10 by Christina Arteaga RN) Rotator cuff impingement syndrome of right shoulder (Acute) Microscopic hematuria (Acute) Flank pain (Acute) Spermatocele of epididymis (Acute) Vitamin D deficiency (Acute) Testicular lump (Acute) HTN (hypertension) (Acute) Past Medical History Medical History BPH (benign prostatic hyperplasia) COVID-19 vaccine series completed HTN (hypertension) Testicular lump Vitamin D deficiency Family History Family History Father Heart disease Mother Heart disease HTN (hypertension) Arthritis Depression Surgical History Surgical History H/O colonoscopy History of appendectomy Hx of cystoscopy Hx of transurethral resection of prostate Social History Social History Patient Tobacco Use Status: Never used Tobacco Use of substances other than those prescribed or required for medical reasons: No Have you been hit, kicked, punched, or otherwise hurt by someone within the past year? If so, by whom?: No Are you DNR?: No Advance Directives: No Advance Directives Information Provided: Yes Advance Directives on File: No Recently lost weight without trying: No Eating poorly because of decreased appetite: No Nutrition Risks: No Nutritional Risk Current occupational status: unemployed Meds Allergies Allergy/AdvReac Type Severity Reaction Status Date / Time fumes - diesel AdvReac Intermediate stuffy Uncoded 11/12/21 12:32 head / runny nose Home Medications Medication Instructions Recorded Confirmed Last Taken Type cyclobenzaprine 10 mg tablet 10 mg PO Q8H tab 05/25/21 11/06/21 Unknown History cholecalciferol (vitamin D3) 50 50 mcg PO DAILY 10/16/21 11/06/21 Unknown History mcg (2,000 unit) tablet (Vitamin D3) valsartan 320 1 tab PO QAM 10/16/21 11/06/21 Unknown History mg-hydrochlorothiazide 25 mg tablet Exam Exam Date and Time: November 09, 2021 1021 Height,Weight and Vital Signs: Height 5 ft 7 in Weight 99.79 kg Pertinent Lab Results Pertinent Lab Results: Laboratory Tests 07/23/21 07/23/21 17:19 17:19 WBC 8.2 Hgb 14.0 Hct 42.3 Plt Count 307 Sodium 138 Potassium 3.9 Chloride 102 Carbon Dioxide 26 BUN 16 Creatinine 1.00 Assessment and Plan Assessment Anesthesia Assessment: Chart Reviewed Documented by User: Leonard Piper 11/12/21 16:56 PMFSH Past Medical History Medical History BPH (benign prostatic hyperplasia) COVID-19 vaccine series completed HTN (hypertension) Testicular lump Vitamin D deficiency Family History Family History Father Heart disease Mother Heart disease HTN (hypertension) Arthritis Depression Family history of problems with anesthesia: No Surgical History Surgical History H/O colonoscopy History of appendectomy Hx of cystoscopy Hx of transurethral resection of prostate History of Problems with Anesthesia: No Social History Social History Patient Tobacco Use Status: Never used Tobacco Use of substances other than those prescribed or required for medical reasons: No Have you been hit, kicked, punched, or otherwise hurt by someone within the past year? If so, by whom?: No Are you DNR?: No Advance Directives: No Advance Directives Information Provided: Yes Advance Directives on File: No Recently lost weight without trying: No Eating poorly because of decreased appetite: No Nutrition Risks: No Nutritional Risk Current occupational status: unemployed Meds Allergies Allergy/AdvReac Type Severity Reaction Status Date / Time fumes - diesel AdvReac Intermediate stuffy Uncoded 11/12/21 12:32 head / runny nose Home Medications Medication Instructions Recorded Confirmed Last Taken Type cyclobenzaprine 10 mg tablet 10 mg PO Q8H tab 05/25/21 11/06/21 Unknown History cholecalciferol (vitamin D3) 50 50 mcg PO DAILY 10/16/21 11/06/21 Unknown History mcg (2,000 unit) tablet (Vitamin D3) valsartan 320 1 tab PO QAM 10/16/21 11/06/21 Unknown History mg-hydrochlorothiazide 25 mg tablet Exam Airway Mallampati Class: IV TM Dist: >3cm Neck ROM: Full Loose/Missing/Broken Teeth: Yes (Fillings ) Heart: rrr Lungs: bl breath sounds Assessment and Plan Assessment Anesthesia Assessment: Anesthesia Plan Discussed Final Anesthetic Review Family History of Problems with Anesthesia: No History of Problems with Anesthesia: No NPO: Yes ASA Class: III Final Preanesthetic Review: Meds/Allgs Chart Reviewed, Consent Obtained/Reviewed and Anes Risks/Benef Reviewed Patient Risk: Intermediate Procedure Risk: Intermediate Anesthetic Plan Anesthetic Plan: GA Disposition: Standard PACU
[2021-11-12 12:32] VITALS: BP 134/87; PULSE 78; RESP 16; TEMP 36.4; O2SAT 94
[2021-11-12] MEDS: Lactated Ringers 1,000 ML 100 ML IVCONT (12:47)
--- NOTE | 2021-11-12 16:29 | MHC.SHP ---
Pre-Procedural Eval Section A Date of Service: 11/12/21 The patient is an INPATIENT: No Changes since office visit: No Cold of Flu in the past 2 weeks, No New Medical Problems, No Changes in Medication and No Patient answered all questions The History & Physical has been completed within 30 days and I have reviewed it.: Yes Section B Chief Complaint: spermatocele of epididymis Details of Present Illness: Left side Allergies: Allergies Allergy/AdvReac Type Severity Reaction Status Date / Time fumes - diesel AdvReac Intermediate stuffy Uncoded 11/12/21 12:32 head / runny nose Plan Diagnosis/Plan: Unchanged ( left side spe) I have reviewed the history and physical and performed a pertinent physical examination on my patient. No changes have occurred unless specified.
--- NOTE | 2021-11-12 17:24 | P.OP_ITS ---
Operative Note Operative Note Date of Service: 11/12/21 Narrative: PreOperative Diagnosis: lump at tail of left epididymis Post Operative Diagnosis: fibrous scarring at tail of left epididymis Procedure: epididymal mass removal Surgeon: Dr Bernardo Zhang Anesthesia: general Indications for procedure: 51-year-old male. Palpable 1 cm mass in the distal tail of the left epididymis. Ultrasound showed question of epididymal cyst. This has been irritating and he would like it removed. Understands it is a surgical procedure. Procedure: After informed consent was verified the patient was brought to the operating room and placed in a supine position. Anesthesia was administered per protocol. patient was placed in supine position and prepped and draped in sterile fashion. Safety pause time-out was performed. Antibiotics being given. Local anesthetic infiltrated in the skin in transverse fashion on the left testicular skin. Incision was taken down to the tunica. The tunica appeared to be adhered tightly to the testicle. The testicle of been delivered through the incision. This is likely as result of prior inflammation in may explain the small 1 cm mass the distal portion of the epididymis as scarring after infection. The fibrous mass was removed. It had distinct boundaries. It did not appear to be malignant in any way. Is sent for final pathology. The area was oversewn with a running 3-0 Vicryl suture. The testicle was placed back in the scrotal sac. The subcutaneous tissue layers were closed with a runn ing 3-0 Vicryl. Skin was closed with series of interrupted 3-0 chromic sutures. Patient tolerated the procedure well was extubated in operating room transferred in stable condition to the recovery area. Pathology: Epididymal fibrous tissue Drains: none
[2021-11-12 17:39] VITALS: BP 130/89; PULSE 87; RESP 17; TEMP 36.4; O2SAT 99
[2021-11-12 17:44] VITALS: BP 132/87; PULSE 78; RESP 18; O2SAT 95
[2021-11-12 17:49] VITALS: BP 136/90; PULSE 75; RESP 18; O2SAT 96
[2021-11-12] MEDS: Acetaminophen 325 MG TABLET 650 MG PO (17:49)
[2021-11-12 17:54] VITALS: BP 119/77; PULSE 77; RESP 18; O2SAT 94
[2021-11-12] MEDS: traMADoL HCL 50 MG TABLET PO (17:57)
[2021-11-12 18:09] VITALS: BP 120/86; PULSE 78; RESP 20; TEMP 36.4; O2SAT 98
== END 2021-11-12 19:12 | disposition home or self-care (01) ==
PROVIDERS: PCP Family Medicine; Visit Provider Urology
PROC: (CPT 54840; principal; 2021-11-12 14:10)
DX: D29.32 Benign neoplasm of left epididymis (principal); N50.812 Left testicular pain; I10 Essential (primary) hypertension; E55.9 Vitamin D deficiency, unspecified; Z79.1 Long term (current) use of non-steroidal anti-inflammatories (NSAID); Z79.899 Other long term (current) drug therapy
CPT/HCPCS: 54830; 88304; 88305; 88341; 88342; 88360; J0690; J1100; J2250; J2405; J3010

== ENCOUNTER → 2021-12-14 15:19 | Outpatient (BNVA) | payer MEDICAID, SELFPAY | PROVIDERS: PCP Family Medicine; Visit Provider Urology | DX: N40.0 Benign prostatic hyperplasia without lower urinary tract symptoms (principal); N43.40 Spermatocele of epididymis, unspecified | CPT/HCPCS: 99212 ==

== ENCOUNTER 2022-02-27 15:35 | Outpatient (REF) | payer MEDICAID, SELFPAY ==
--- NOTE | ~2022-02-27 | US_ITS ---
EXAMINATION: US SCROTUM CLINICAL INFORMATION: Hydrocele, unspecified. COMPARISON: Ultrasound scrotum 10/05/2021. TECHNIQUE: A sonogram of the scrotum was performed assessing pineda-scale appearance and color Doppler flow. Spectral Doppler analysis of the arterial and venous flow were performed in the testes bilaterally. FINDINGS: RIGHT: Right testicle measures 3.7 x 2.1 x 2.9 cm, volume 11.8 mL. Again noted microlithiasis. Spectral Doppler analysis of the arterial and venous flow is normal in the right testis. Right epididymal head is normal in size. No right hydrocele or varicocele is seen. Right epididymal Doppler flow is normal. LEFT: Left testicle measures 3.7 x 2.1 x 3.0 cm, volume 12.2 mL. Again noted microlithiasis. Spectral Doppler analysis of the arterial and venous flow is normal in the left testis. Left epididymal head is normal in size. Redemonstration of a predominantly hypoechoic lesion at the tail of the left epididymis measuring 0.8 x 0.8 x 0.6 cm, previously 1.1 x 0.8 x 1.1 cm (10/05/2021) and 0.7 x 0.7 x 0.6 cm (03/12/2021). No left hydrocele or varicocele is seen. Left epididymal Doppler flow is normal. US/US scrotum IMPRESSION: Overall, not significantly changed within a predominantly hypoechoic lesion in the left epididymal tail. Continued follow-up per clinical discretion. Redemonstration of bilateral microlithiasis.
== END 2022-02-27 15:36 | disposition home or self-care (01) ==
LOC: HO.US 15:35
PROVIDERS: Visit Provider Urology
DX: N50.89 Other specified disorders of the male genital organs (principal); N43.3 Hydrocele, unspecified
CPT/HCPCS: 76870

== ENCOUNTER → 2022-03-15 15:01 | Outpatient (BNVA) | payer MEDICAID, SELFPAY | PROVIDERS: PCP Family Medicine; Visit Provider Urology | DX: N40.0 Benign prostatic hyperplasia without lower urinary tract symptoms (principal); N43.40 Spermatocele of epididymis, unspecified; N39.43 Post-void dribbling | CPT/HCPCS: 52000; 99212 ==

== ENCOUNTER 2022-03-23 09:19 | Outpatient (REF) | payer MEDICAID, SELFPAY | END 2022-03-23 09:20 | disposition home or self-care (01) | LOC: HO.LAB 09:19 | PROVIDERS: PCP Family Medicine; Visit Provider Family Medicine | DX: Z13.89 Encounter for screening for other disorder (principal) ==

== ENCOUNTER 2022-03-30 09:07 | Outpatient (REF) | payer MEDICAID, SELFPAY | END 2022-03-30 09:08 | disposition home or self-care (01) | LOC: HO.LNP 09:07 | PROVIDERS: Visit Provider Family Medicine | DX: R05.9 Cough, unspecified (principal) | CPT/HCPCS: 87338 ==

== ENCOUNTER 2022-04-17 17:54 | Outpatient (REF) | payer MEDICAID, SELFPAY ==
[2022-04-17 18:09] LABS: Hemoglobin 12.8 g/dl (14.0-18.0); Mean Corpuscular HGB Conc 32.8 g/dl (31.0-36.0); Mean Corpuscular Hemoglobin 27.6 pg (27.0-33.0); Mean Corpuscular Volume 84.1 fL (80.0-98.0); Mean Platelet Volume 9.8 fL (9.4-12.4); Platelet Count 328 X10*3/uL (160-400); Red Blood Count 4.64 X10*6/uL (4.60-5.80); Red Cell Distribution Width 15.3 % (11.0-16.0)
[2022-04-17 18:11] LABS: Estimated Average Glucose 108 mg/dL; Hemoglobin A1c % 5.4 %
[2022-04-17 18:16] LABS: Alanine Aminotransferase 15 U/L (0-40); Albumin Level 4.6 g/dL (3.5-5.0); Alkaline Phosphatase 73 U/L (39-117); Anion Gap 14 (12-20); Aspartate Amino Transferase 14 U/L (5-37); Bilirubin Total 0.3 mg/dL (0.0-1.0); Blood Urea Nitrogen 19 mg/dL (9-16); Calcium 8.9 mg/dL (8.4-10.2); Carbon Dioxide 20 mmol/L (22-29); Chloride 107 mmol/L (96-108); Estimated Glomerular Filt Rate > 60; Glucose Random 95 mg/dL (60-115); Potassium 4.2 mmol/L (3.3-5.1); Sodium 137 mmol/L (135-145); Total Protein 7.4 g/dL (6.5-8.0)
[2022-04-17 18:36] LABS: Thyroid Stimulating Hormone 2.04 uIU/mL (0.32-4.0); Vitamin D 25-OH Total 33.9 ng/mL (>30)
[2022-04-18 06:50] LABS: CT PCR NOT DETECTED (Not Detect.); NG PCR NOT DETECTED (Not Detect.)
== END 2022-04-17 17:55 | disposition home or self-care (01) ==
LOC: HO.LAB 17:54
PROVIDERS: Visit Provider Family Medicine
DX: Z11.3 Encounter for screening for infections with a predominantly sexual mode of transmission (principal); R53.81 Other malaise
CPT/HCPCS: 80053; 82306; 83036; 84443; 85027; 87491; 87591

== ENCOUNTER 2022-05-03 16:46 | Outpatient (REF) | payer MEDICAID, SELFPAY ==
--- NOTE | ~2022-05-03 | XR_ITS ---
EXAMINATION: XR KNEE, LEFT CLINICAL INFORMATION: Left knee pain COMPARISON: Radiographs left knee 11/09/2013 TECHNIQUE: AP and lateral views of the left knee. FINDINGS: Normal bony mineralization. No fracture, dislocation, destructive process, or arthropathy. No joint narrowing or erosive change or chondrocalcinosis. No suprapatellar effusion. Hoffa's fat pad appears normal. XR/XR knee LT 2V IMPRESSION: Normal left knee.
== END 2022-05-03 16:47 | disposition home or self-care (01) ==
LOC: HO.XRAY 16:46
PROVIDERS: PCP Family Medicine; Visit Provider Family Medicine
DX: M25.562 Pain in left knee (principal)
CPT/HCPCS: 73560

== ENCOUNTER 2022-06-07 16:11 | Outpatient (REF) | payer MEDICAID, SELFPAY ==
[2022-06-07 16:32] LABS: MANUAL DIFF FLAG NO
[2022-06-07 17:01] LABS: Basophils Absolute Auto 0.1 X10*3/uL (0.0-0.2); Basophils Percent Auto 0.8 % (0-2); Eosinophils Absolute Auto 0.5 X10*3/uL (0.0-0.4); Eosinophils Percent Auto 5.9 % (0-4); Hematocrit 40.6 % (42.0-52.0); Hemoglobin 13.3 g/dl (14.0-18.0); Imm Gran Abs Auto 0.03 X10*3/uL (0.00-0.03); Imm Gran Pct Auto 0.4 % (0.0-0.4); Lymphocytes Absolute Auto 1.7 X10*3/uL (1.2-4.9); Lymphocytes Percent Auto 21.7 % (20-40); Mean Corpuscular HGB Conc 32.8 g/dl (31.0-36.0); Mean Corpuscular Hemoglobin 27.4 pg (27.0-33.0); Mean Corpuscular Volume 83.7 fL (80.0-98.0); Mean Platelet Volume 10.1 fL (9.4-12.4); Monocytes Absolute Auto 0.6 X10*3/uL (0.1-1.2); Monocytes Percent Auto 7.5 % (2-11); Neutrophils Absolute Auto 5.1 x10*3/uL (2.0-8.3); Neutrophils Percent Auto 63.7 % (45-73); Platelet Count 312 X10*3/uL (160-400); Red Blood Count 4.85 X10*6/uL (4.60-5.80); Red Cell Distribution Width 13.9 % (11.0-16.0)
[2022-06-07 17:25] LABS: Iron 87 mcg/dL (45-160); Percent Iron Saturation 27 % (15-50); Total Iron Binding Capacity 320 mcg/dL (228-428); Unsaturated Iron Binding 233 ug/dL
[2022-06-07 17:47] LABS: Ferritin 258 ng/mL (20-250)
== END 2022-06-07 16:12 | disposition home or self-care (01) ==
LOC: HO.LAB 16:11
PROVIDERS: Visit Provider Family Medicine
DX: D64.9 Anemia, unspecified (principal)
CPT/HCPCS: 36415; 82728; 83540; 85025

== ENCOUNTER 2022-06-24 05:56 | Outpatient (REF) | payer MEDICAID, SELFPAY ==
--- NOTE | ~2022-06-24 | XR_ITS ---
EXAMINATION: XR KNEE AP STANDING XR KNEE, LEFT CLINICAL INFORMATION: Left knee pain COMPARISON: 05/03/2022 TECHNIQUE: AP bilateral standing view of the knees was obtained. Catharine view of the left knee. FINDINGS: No joint space narrowing. No fracture is evident. No significant change. XR/XR knee standing BI IMPRESSION: Unremarkable study.
--- NOTE | ~2022-06-24 | XR_ITS ---
EXAMINATION: XR KNEE AP STANDING XR KNEE, LEFT CLINICAL INFORMATION: Left knee pain COMPARISON: 05/03/2022 TECHNIQUE: AP bilateral standing view of the knees was obtained. Mescal view of the left knee. FINDINGS: No joint space narrowing. No fracture is evident. No significant change. XR/XR knee LT 1V IMPRESSION: Unremarkable study.
== END 2022-06-24 05:57 | disposition home or self-care (01) ==
LOC: HO.HOSX 05:56
PROVIDERS: Visit Provider Physician Assistant
DX: M17.12 Unilateral primary osteoarthritis, left knee (principal)
CPT/HCPCS: 73560; 73565; 99202

== ENCOUNTER → 2022-09-11 16:24 | Outpatient (BNVA) | payer MEDICAID, SELFPAY | PROVIDERS: PCP Family Medicine; Visit Provider Nurse Practitioner | DX: Z01.818 Encounter for other preprocedural examination (principal); K59.04 Chronic idiopathic constipation; K64.9 Unspecified hemorrhoids | CPT/HCPCS: 99202 ==

== ENCOUNTER → 2022-09-18 15:44 | Outpatient (REF) | payer MEDICAID, SELFPAY | LOC: HO.SL 15:44 | PROVIDERS: PCP Family Medicine; Visit Provider Family Medicine | DX: G47.33 Obstructive sleep apnea (adult) (pediatric) (principal) | CPT/HCPCS: 95806 ==

== ENCOUNTER → 2022-09-27 15:57 | Outpatient (BNVA) | payer MEDICAID, SELFPAY | PROVIDERS: PCP Family Medicine; Visit Provider Urology | DX: N40.1 Benign prostatic hyperplasia with lower urinary tract symptoms (principal); N39.43 Post-void dribbling; R31.29 Other microscopic hematuria | CPT/HCPCS: 99212 ==

== ENCOUNTER 2022-11-19 07:42 | Day surgery (SDC) | payer MEDICAID, SELFPAY ==
[2022-11-12 14:16] VITALS: BMI 35.4
[2022-11-19 07:53] VITALS: BMI 33.4
[2022-11-19 08:06] VITALS: BP 121/78; PULSE 73; RESP 15; TEMP 36.7; O2SAT 95
[2022-11-19] MEDS: Lactated Ringers 1,000 ML 50 ML IVCONT (08:15)
--- NOTE | 2022-11-19 08:33 | MHC.SHP ---
Pre-Procedural Eval Section A Date of Service: 11/19/22 Section B Chief Complaint: Screening Details of Present Illness: PMX Obstructive sleep apnea Hypertension GERD Hematospermia History of infectious colitis Sacral arthritis Obesity Family history of colon cancer SURGICAL HISTORY Appendectomy Nasal polypectomy Colonoscopy-2011 [facility] Relevant Family History (Specify if Yes): No Relevant Social History: None Present Medications: see Short Stay Collaborative assessment Medical History: Significant History (as above ) History of Previous Operations: Relevant previous surgery/procedure and date(s) (as above ) Allergies: Allergies Allergy/AdvReac Type Severity Reaction Status Date / Time No Known Allergies Allergy Verified 11/19/22 07:52 Review of Systems Review of Systems Comment: 10 point ROS negative Exam Exam Comment: Gen appear: No acute distress HEENT: no icterus Chest: No overt resp distress Abd: soft, nontender, nondistended Psych: Stable affect, answering questions appropriately Neuro: A/Ox3 noted to move all extremities spontaneously Ext: no peripheral edema Plan Diagnosis/Plan: Unchanged I have reviewed the history and physical and performed a pertinent physical examination on my patient. No changes have occurred unless specified. Time Spent With Patient Time: Total time managing care of this patient today ____ minutes.
--- NOTE | 2022-11-19 08:35 | P.OP_ITS ---
Operative Note Operative Note Date of Service: 11/19/22 Narrative: Procedure: Colonoscopy Indication: Screening Endoscopist: Imelda Brunson MD Anesthesia Provider: Dr Jennifer Ramirez Anesthesia type: MAC Instrument: Olympus [id number]-[id number] Consent: Indication, risks vs benefits, and alternatives were discussed with the patient who gave written informed consent to proceed. EKG, pulse, pulse oximetry and blood pressure were monitored throughout the procedure. Please see anesthesia flowsheet. Procedure: The patient was brought to the procedure room and placed in the left lateral decubitus position. IV medications were administered by the anesthesia provider in attendance. A digital rectal exam was performed which was normal. The colonoscope was then inserted through the anus and advanced through the colon to the cecum at 80 cm. Mucosa was carefully examined under high definition white light as the instrument was slowly withdrawn in a retrograde panoramic fashion. Ascending colon was intubated twice. Retroflexion was performed in rectum. The procedure was not difficult. There were no immediate obvious complications. The quality of the prep was BBPS: 2+2+2 = adequate Withdrawal time 14 minutes. Limitations: No limitations. Findings: Mucosa: Normal to cecum. Protruding lesions: * 2 sessile polyp of size 2-3 mm in ascending colon. Cold snare polypectomy was performed. The polyps were completely removed and retrieved. * 1 sessile polyp of size 6 mm in transverse colon. Cold snare polypectomy was performed. The polyp was completely removed and retrieved. * Medium internal hemorrhoids without stigmata of recent bleeding. Excavated lesions: * Moderate diverticulosis of left sided colon. Impression: 1. Normal colon mucosa 2. Total of 3 polyps removed from ascending and transverse colon. 3. Internal hemorrhoids 4. Diverticulosis Recommendations: - Follow path results. - Repeat colonoscopy in 3 years if all polyps are adenomas otherwise 7 years. - Increase fiber intake.
[2022-11-19 09:11] VITALS: BP 109/72; PULSE 78; RESP 18; TEMP 37.3; O2SAT 96
--- NOTE | 2022-11-19 09:12 | P.CONAN_ITS ---
HPI - Anesthesia Eval Consult details Narrative: screening FOR[facility] Active Problems Active Problems: All Active Problems (Updated 11/19/22 @ 07:51 by Rowan Avalos, RN) Rotator cuff impingement syndrome of right shoulder (Acute) Microscopic hematuria (Acute) Flank pain (Acute) Spermatocele of epididymis (Acute) Benign prostatic hyperplasia (BPH) with post-void dribbling (Acute) Patellofemoral arthritis of left knee (Acute) Chronic idiopathic constipation (Acute) Pre-op examination (Acute) Hemorrhoids (Acute) BPH (benign prostatic hyperplasia) (Acute) Vitamin D deficiency (Acute) Testicular lump (Acute) HTN (hypertension) (Acute) Past Medical History Medical History BPH (benign prostatic hyperplasia) COVID-19 vaccine series completed GERD (gastroesophageal reflux disease) HTN (hypertension) Sleep apnea Testicular lump Vitamin D deficiency Family History Family History Father Heart disease Mother Heart disease HTN (hypertension) Arthritis Depression Family history of problems with anesthesia: No Surgical History Surgical History H/O colonoscopy History of appendectomy History of testicular surgery Hx of cystoscopy Hx of nasal polypectomy Hx of transurethral resection of prostate History of Problems with Anesthesia: No Social History Social History Patient Tobacco Use Status: Never used Tobacco Use of substances other than those prescribed or required for medical reasons: No Are you DNR?: No Advance Directives: No Advance Directives Information Provided: Yes Current occupational status: employed and unemployed 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 [employer] Allergies Allergy/AdvReac Type Severity Reaction Status Date / Time No Known Allergies Allergy Verified 11/19/22 07:52 Active Medications: Current Medications Lactated Ringer's (Lr) 1,000 mls @ 50 mls/hr IVCONT .Q20H DORIAN Last Admin: 11/19/22 08:15 Dose: 50 mls/hr Home Medications Medication Instructions Recorded Confirmed Last Taken Type cholecalciferol (vitamin D3) 50 50 mcg PO DAILY 10/16/21 11/12/22 Unknown History mcg (2,000 unit) tablet (Vitamin D3) amlodipine 10 mg-valsartan 320 mg 1 tab PO DAILY 03/15/22 11/19/22 11/19/22 07:00 History tablet Exam Exam Date and Time: November 19, 2022 0912 Height,Weight and Vital Signs: Height 5 ft 8 in Weight 99.79 kg Last Vital Signs Temp 98.1 F 11/19/22 08:06 Pulse 73 11/19/22 08:06 Resp 15 11/19/22 08:06 BP 121/78 11/19/22 08:06 Pulse Ox 95 11/19/22 08:06 O2 Del Method 11/19/22 08:06 Airway Mallampati Class: II TM Dist: >3cm Neck ROM: Full Heart: rr Lungs: cta Assessment and Plan Assessment Anesthesia Assessment: Anesthesia Plan Discussed and Chart Reviewed Final Anesthetic Review Family History of Problems with Anesthesia: No History of Problems with Anesthesia: No ASA Class: II Final Preanesthetic Review: No Changes in Pt Med Stat, Meds/Allgs Chart Reviewed, Consent Obtained/Reviewed and Anes Risks/Benef Reviewed Patient Risk: Low Procedure Risk: Low Anesthetic Plan Anesthetic Plan: MAC: Disposition: Standard PACU
[2022-11-19 09:26] VITALS: BP 109/72; PULSE 69; RESP 18; TEMP 37.3; O2SAT 96
== END 2022-11-19 10:35 | disposition home or self-care (01) ==
PROVIDERS: PCP Family Medicine; Visit Provider Internal Medicine
PROC: 0DJD8ZZ Inspection of Lower Intestinal Tract, Via Natural or Artificial Opening Endoscopic (ICD-10-PCS; CPT 45378; principal; 2022-11-19 08:30)
DX: Z12.11 Encounter for screening for malignant neoplasm of colon (principal); Z80.0 Family history of malignant neoplasm of digestive organs; D12.2 Benign neoplasm of ascending colon; D12.3 Benign neoplasm of transverse colon; K57.30 Diverticulosis of large intestine without perforation or abscess without bleeding; K64.8 Other hemorrhoids; K59.04 Chronic idiopathic constipation; K21.9 Gastro-esophageal reflux disease without esophagitis; N40.0 Benign prostatic hyperplasia without lower urinary tract symptoms; G47.33 Obstructive sleep apnea (adult) (pediatric); I10 Essential (primary) hypertension; Z79.899 Other long term (current) drug therapy
CPT/HCPCS: 45385; 88305

== ENCOUNTER → 2022-11-22 16:00 | Outpatient (BNVA) | payer MEDICAID, SELFPAY | PROVIDERS: PCP Family Medicine; Visit Provider Nurse Practitioner | DX: D12.2 Benign neoplasm of ascending colon (principal); D12.3 Benign neoplasm of transverse colon; K64.9 Unspecified hemorrhoids; Z98.890 Other specified postprocedural states | CPT/HCPCS: 99212 ==

== ENCOUNTER → 2022-11-24 22:38 | Outpatient (REF) | payer MEDICAID, SELFPAY | LOC: HO.SL 22:38 | PROVIDERS: PCP Family Medicine; Visit Provider Family Medicine | DX: G47.33 Obstructive sleep apnea (adult) (pediatric) (principal); R06.83 Snoring; E66.09 Other obesity due to excess calories | CPT/HCPCS: 95811 ==

== ENCOUNTER 2023-01-07 14:29 | Emergency (ER) | payer OTHER, SELFPAY ==
--- NOTE | ~2023-01-07 | US_ITS ---
EXAMINATION: US VENOUS ULTRASOUND WITH DOPPLER LOWER EXTREMITY, LEFT CLINICAL INFORMATION: Left lower extremity status post injury. COMPARISON: None available. TECHNIQUE: Ultrasound of the deep veins is performed from the hip to the calf with compression sonography and color and pulse Doppler assessment. Spectral analysis with color-flow imaging is performed. FINDINGS: There is normal venous compression and respiratory variation and augmented flow. The visualized common femoral vein, superficial femoral vein, profunda femoral vein, popliteal vein, and the trifurcation region shows no evidence of deep venous thrombosis. No left popliteal cyst. The subcutaneous collection is seen in the lateral segment area in the region of injury with horizontal orientation. Color Doppler showed no abnormal vascular flow. US/US venous duplex LE LT IMPRESSION: 1. No evidence for deep venous thrombosis in the visualized veins of the left lower extremity. 2. Subcutaneous collection in the lateral segment of the left lower extremity in the region of injury likely representing resolving hematoma consistent with the patient's history. Correlate with physical exam. No other significant abnormality.
[2023-01-07 14:43] VITALS: BP 114/76; PULSE 85; RESP 18; TEMP 36.6; O2SAT 98; BMI 33.5
--- NOTE | 2023-01-07 14:43 | ED.LOWEXIN ---
HPI - Extremity Injury (Lower) General Chief Complaint: Extremity Injury, Lower Stated Complaint: L leg pain Time Seen by Provider: 01/07/23 14:50 Related Data Home Medications Medication Instructions Recorded Confirmed cholecalciferol (vitamin D3) 50 50 mcg PO DAILY 10/16/21 11/12/22 mcg (2,000 unit) tablet (Vitamin D3) amlodipine 10 mg-valsartan 320 mg 1 tab PO DAILY 03/15/22 11/19/22 tablet Previous Rx's Medication Instructions Recorded polyethylene glycol 3350 17 17 g PO DAILY #238 grams 11/19/22 gram/dose oral powder (Miralax) hydrocortisone 2.5 % topical cream 1 appl [place] BID PRN hemorrhoids #30 11/22/22 with perineal applicator grams (Proctosol HC) cephalexin 500 mg tablet 500 mg PO QID 7 days #28 tabs 01/07/23 Allergies Allergy/AdvReac Type Severity Reaction Status Date / Time No Known Allergies Allergy Verified 11/22/22 16:09 PMFSH Past Medical History Medical History BPH (benign prostatic hyperplasia) COVID-19 vaccine series completed GERD (gastroesophageal reflux disease) HTN (hypertension) Sleep apnea Testicular lump Vitamin D deficiency Surgical History H/O colonoscopy History of appendectomy History of testicular surgery Hx of cystoscopy Hx of nasal polypectomy Hx of transurethral resection of prostate Family History Family History Father Heart disease Mother Heart disease HTN (hypertension) Arthritis Depression Social History Social History Patient Tobacco Use Status: Never used Tobacco Current occupational status: employed and unemployed 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 denies SOB, fever, chills. Denies taking AC +LLE pitting edema with superficial abrasion and warmth Labs, US venous duplex ordered Medications Administered Discontinued Medications Generic Name Dose Route Start Last Admin Trade Name Freq PRN Reason Stop Dose Admin Cephalexin HCl 500 mg 01/07/23 17:00 01/07/23 17:12 Cephalexin 500 Mg Capsule PO 01/07/23 17:01 500 mg ONCE ONE Administration Medical Decision Making Lab Data 01/07/23 14:56 01/07/23 14:56 Labs: Lab Results 01/07/23 01/07/23 01/07/23 Range/Units 14:56 14:56 14:56 WBC 8.3 (4.8-10.8) X10*3/uL RBC 4.40 L (4.60-5.80) X10*6/uL Hgb 12.3 L (14.0-18.0) g/dl Hct 37.0 L (42.0-52.0) % MCV 84.1 (80.0-98.0) fL MCH 28.0 (27.0-33.0) pg MCHC 33.2 (31.0-36.0) g/dl RDW 14.6 (11.0-16.0) % Plt Count 314 (160-400) X10*3/uL MPV 9.9 (9.4-12.4) fL Immature Gran % (Auto) 0.5 H (0.0-0.4) % Neut % (Auto) 66.9 (45-73) % Lymph % (Auto) 21.5 (20-40) % [place] % (Auto) 6.6 (2-11) % Eos % (Auto) 3.7 (0-4) % Baso % (Auto) 0.8 (0-2) % Lymph # (Auto) 1.8 (1.2-4.9) X10*3/uL [place] # (Auto) 0.6 (0.1-1.2) X10*3/uL Eos # (Auto) 0.3 (0.0-0.4) X10*3/uL Baso # (Auto) 0.1 (0.0-0.2) X10*3/uL Abs Immat Gran (auto) 0.04 H (0.00-0.03) X10*3/uL Absolute Neuts (auto) 5.5 (2.0-8.3) x10*3/uL Absolute Nucleated RBC 0.000 (0.0-0.012) X10*3/uL Nucleated RBC % (auto) 0.0 (0.0-0.2) /100WBC Sodium 135 (135-145) mmol/L Potassium 4.2 (3.3-5.1) mmol/L Chloride 104 (96-108) mmol/L Carbon Dioxide 22 (22-29) mmol/L Anion Gap 13 (12-20) BUN 17 H (9-16) mg/dL Creatinine 0.83 (0.5-1.4) mg/dL Estim Creat Clear Calc 125.9 Estimated GFR > 60 Random Glucose 94 (60-115) mg/dL Calcium 9.0 (8.4-10.2) mg/dL B-Natriuretic Peptide < 10 (<100) pg/mL Discharge Plan Discharge Clinical Impression: Cellulitis of left leg, Anemia Patient Disposition: Home, Self-Care Additional Instructions: ultrasound of the leg did not show any blood clot Blood tests did show very mild anemia, you should follow with your doctor to be rescheduled for a blood test and for further evaluation We are treating cellulitis, skin infection, of the left leg with antibiotic Keflex Return any time for spreading redness, worse pain and swelling, fever, red stripe up the leg, any sign of worsening infection any worse condition or any concerns Prescriptions: New cephalexin 500 mg tablet 500 mg PO QID 7 Days Qty: 28 0RF No Action polyethylene glycol 3350 [Miralax] 17 gram/dose powder 17 g PO DAILY Qty: 238 1RF cholecalciferol (vitamin D3) [Vitamin D3] 50 mcg (2,000 unit) tablet 50 mcg PO DAILY hydrocortisone [Proctosol HC] 2.5 % cream with perineal applicator 1 appl MA BID PRN (Reason: hemorrhoids) Qty: 30 3RF amlodipine-valsartan 10-320 mg tablet 1 tab PO DAILY Interventions: ED Discharge Assessment Last Done: 01/07/23 17:15 Discharge Date/Time: 01/07/23 17:20
[2023-01-07 15:02] LABS: MANUAL DIFF FLAG NO
[2023-01-07 15:10] LABS: Basophils Absolute Auto 0.1 X10*3/uL (0.0-0.2); Basophils Percent Auto 0.8 % (0-2); Eosinophils Absolute Auto 0.3 X10*3/uL (0.0-0.4); Eosinophils Percent Auto 3.7 % (0-4); Hemoglobin 12.3 g/dl (14.0-18.0); Imm Gran Abs Auto 0.04 X10*3/uL (0.00-0.03); Imm Gran Pct Auto 0.5 % (0.0-0.4); Lymphocytes Absolute Auto 1.8 X10*3/uL (1.2-4.9); Lymphocytes Percent Auto 21.5 % (20-40); Mean Corpuscular HGB Conc 33.2 g/dl (31.0-36.0); Mean Corpuscular Volume 84.1 fL (80.0-98.0); Mean Platelet Volume 9.9 fL (9.4-12.4); Monocytes Absolute Auto 0.6 X10*3/uL (0.1-1.2); Monocytes Percent Auto 6.6 % (2-11); Neutrophils Absolute Auto 5.5 x10*3/uL (2.0-8.3); Neutrophils Percent Auto 66.9 % (45-73); Platelet Count 314 X10*3/uL (160-400); Red Cell Distribution Width 14.6 % (11.0-16.0); White Blood Count 8.3 X10*3/uL (4.8-10.8)
[2023-01-07 15:23] LABS: Anion Gap 13 (12-20); Blood Urea Nitrogen 17 mg/dL (9-16); Carbon Dioxide 22 mmol/L (22-29); Chloride 104 mmol/L (96-108); Creatinine Clr Calc Pharmacy 125.9; Estimated Glomerular Filt Rate > 60; Glucose Random 94 mg/dL (60-115); Potassium 4.2 mmol/L (3.3-5.1); Sodium 135 mmol/L (135-145)
[2023-01-07 15:30] LABS: B Type Natriuretic Peptide < 10 pg/mL (<100)
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
[2023-01-07] MEDS: cephALEXin 500 MG CAPSULE PO (17:12)
== END 2023-01-07 17:20 | disposition home or self-care (01) ==
PROVIDERS: Physician Assistant; Emergency Provider Emergency Medicine; PCP Family Medicine
DX: L03.116 Cellulitis of left lower limb (principal); R60.0 Localized edema; R06.02 Shortness of breath; D64.9 Anemia, unspecified; Z79.899 Other long term (current) drug therapy
CPT/HCPCS: 36415; 80048; 83880; 85025; 93971; 99282; 99283; 99284

== ENCOUNTER → 2023-01-09 15:50 | Outpatient (BNVA) | payer OTHER, SELFPAY | PROVIDERS: PCP Family Medicine; Visit Provider Physician Assistant Surgical | DX: Z13.89 Encounter for screening for other disorder (principal) ==

== ENCOUNTER 2023-02-03 10:53 | Outpatient (REF) | payer OTHER, SELFPAY ==
--- NOTE | ~2023-02-03 | XR_ITS ---
EXAMINATION: XR ELBOW, LEFT CLINICAL INFORMATION: Pain left elbow COMPARISON: None available. TECHNIQUE: AP, lateral, and oblique views of the left elbow. FINDINGS: The bones and soft tissues are normal. No fracture or joint effusion. Alignment is anatomic. Joint spaces are maintained. XR/XR elbow LT min 3V IMPRESSION: Unremarkable left elbow exam.
== END 2023-02-03 10:54 | disposition home or self-care (01) ==
LOC: HO.HOSX 10:53
PROVIDERS: Visit Provider Physician Assistant
DX: M77.12 Lateral epicondylitis, left elbow (principal)
CPT/HCPCS: 20550; 20551; 73080; J1100

== ENCOUNTER → 2023-02-05 15:33 | Outpatient (BNVA) | payer OTHER, SELFPAY | PROVIDERS: PCP Family Medicine; Visit Provider Physician Assistant Surgical ==

== ENCOUNTER 2023-03-20 17:02 | Outpatient (REF) | payer OTHER, SELFPAY ==
--- NOTE | ~2023-03-20 | XR_ITS ---
EXAMINATION: XR FINGER, LEFT CLINICAL INFORMATION: Left fifth digit PIP joint pain COMPARISON: 07/06/2016. TECHNIQUE: 3 views of the left fifth digit of 03/20/2023 at 5:25 AM. This study was presented today 04/08/2023 at 9:26 AM for interpretation. Exam of 03/20/2023 obtained at 8:04 AM has already been interpreted with report provided to referring provider. FINDINGS: There is dislocation of the PIP joint of the fifth digit with dorsal displacement of the middle and distal phalangeal complex as well as adjacent soft tissue swelling. No displaced fracture is appreciated. XR/XR finger LT min 2V IMPRESSION: Dislocation of the fifth PIP joint. No discrete fractures.
== END 2023-03-20 17:03 | disposition home or self-care (01) ==
LOC: HO.XRAY 17:02
PROVIDERS: Absent Provider Family Medicine; PCP Family Medicine; Visit Provider Emergency Medicine
DX: S69.92XA Unspecified injury of left wrist, hand and finger(s), initial encounter (principal); X58.XXXA Exposure to other specified factors, initial encounter; Y93.9 Activity, unspecified; Y92.9 Unspecified place or not applicable; Y99.9 Unspecified external cause status
CPT/HCPCS: 73140

== ENCOUNTER 2023-03-20 17:42 | Emergency (ER) | payer OTHER, SELFPAY ==
--- NOTE | ~2023-03-20 | XR_ITS ---
EXAMINATION: XR FINGER, LEFT CLINICAL INFORMATION: Post reduction. COMPARISON: Radiograph of the left hand earlier today at 5:25 PM. TECHNIQUE: 3 views of the left small finger. FINDINGS: Satisfactory reduction of previously seen dislocation of the PIP joint of the fifth digit, now in anatomic alignment. No discrete fractures. No unexpected radiopaque foreign bodies. XR/XR finger LT min 2V IMPRESSION: Satisfactory reduction of the fifth PIP joint. No discrete fractures.
[2023-03-20 17:49] VITALS: BP 125/84; PULSE 79; RESP 18; TEMP 36.7; O2SAT 98; BMI 34.4
--- NOTE | 2023-03-20 17:51 | ED_ITS ---
HPI - General Adult General Chief complaint: Extremity Injury, Upper Stated complaint: Left pinky dislocation? Time Seen by Provider: 03/20/23 19:08 Source: patient and RN notes reviewed Mode of arrival: ambulatory Limitations: no limitations History of Present Illness HPI narrative: This is a 53-year-old male presenting to the emergency department with complaints of left 5th finger pain. Patient reports that he is playing with his kids on Friday when he fell onto it and felt it dislocated. He was seen of stairs where they did x-ray and was told to go to the emergency department to have this put back into place. No other complaints or concerns at this time. MD complaint: Left 5th finger pain Relieving factors: none Exacerbating factors: none Associated symptoms: denies other symptoms Treatments prior to arrival: none Related Data Home Medications Medication Instructions Recorded Confirmed amlodipine 10 mg-valsartan 320 mg 1 tab PO DAILY 03/15/22 02/05/23 tablet Previous Rx's Medication Instructions Recorded hydrocortisone 2.5 % topical cream 1 appl [place] BID PRN hemorrhoids #30 11/22/22 with perineal applicator grams (Proctosol HC) acetaminophen 500 mg capsule 500 mg PO Q4-6H PRN pain #30 caps 03/20/23 ibuprofen 600 mg tablet 600 mg PO Q6H PRN pain #30 tabs 03/20/23 Allergies Allergy/AdvReac Type Severity Reaction Status Date / Time No Known Allergies Allergy Verified 02/05/23 15:40 Review of Systems Review of Systems: Constitutional: No Weight loss, No Fever, No Chills ENT/Mouth: No Ear Pain, No Nasal Congestion, No Sinus Pain, No Hoarseness, No sore throat, No Rhinorrhea, No Swallowing Difficulty Cardiovascular: No Chest Pain, No SOB Respiratory: No Cough, No Sputum, No Wheezing Gastrointestinal: No Nausea, No Vomiting, No Diarrhea, No Constipation, No Abdominal pain Genitourinary: No Dysuria, No Urinary Frequency, No Hematuria, No Urinary Incontinence/retention, No Urgency, No Flank Pain Musculoskeletal: + joint pain, No Myalgias, No Joint Swelling Skin: No Skin Lesions, No rash Neuro: No Weakness, No Numbness, No Paresthesias Yes all other systems are reviewed and are negative Constitutional: Constitutional: Reports as per [facility] Past Medical History Medical History BPH (benign prostatic hyperplasia) COVID-19 vaccine series completed GERD (gastroesophageal reflux disease) HTN (hypertension) Sleep apnea Testicular lump Vitamin D deficiency Surgical History H/O colonoscopy History of appendectomy History of testicular surgery Hx of cystoscopy Hx of nasal polypectomy Hx of transurethral resection of prostate Family History Family History Father Heart disease Mother Heart disease HTN (hypertension) Arthritis Depression Social History Social History Patient Tobacco Use Status: Never used Tobacco Advance Directives: No Advance Directives Information Provided: No Current occupational status: employed and unemployed 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 Physical Exam ED Vital Signs: Vital Signs - 24 hr 03/20/23 17:49 Temperature 98.1 F Pulse Rate 79 Respiratory Rate 18 Blood Pressure 125/84 Pulse Oximetry 98 Oxygen Delivery Method Room Air BMI result Body Mass Index 34.4 Const General: cooperative, comfortable and no acute distress Orientation/consciousness: patient oriented x3 Limitations: no limitations HENMT Head: Yes normal to inspection, Yes normocephalic and Yes atraumatic Ears: hearing grossly normal bilaterally General nose exam: Normal external nose present Face and sinus: Yes normal facial exam Mouth: Normal oral and palatal mucosa present, oropharynx normal and moist mucous membranes Throat: Yes posterior oropharynx normal Eyes General: appearance normal, both eyes and all related structures Eyelids: Yes eyelids normal Conjunctivae: conjunctivae normal Sclerae: sclerae normal Pupils: Equal, round and reactive pupils present EOM: EOMs intact bilaterally Neck Neck: Yes normal visual inspection, Yes full ROM and Yes no lymphadenopathy Lymphatic: no lymphadenopathy noted Chest Chest palpation & inspection: normal inspection of the chest Resp Effort & Inspection: normal respiratory effort and able to speak in complete sentences Cardio Rate: regular rate Rhythm: regular rhythm Heart sounds: S1 normal heart sound present and S2 normal heart sound present GI Inspection: Yes normal to inspection Skin General skin exam: no rashes or lesions noted Trauma: no lacerations or abrasions Wounds: no wounds Neuro General: patient oriented x3 and moves all extremities Cranial nerves: Yes Equal, round and reactive pupils present Extrem Other: Left 5th finger with edema noted diffusely with tenderness and bony deformity noted at the PIP. Distal sensation circulation intact. Radial pulse 2+ General: Yes normal to inspection Right upper extremity: normal to inspection Left upper extremity: normal to inspection Right lower extremity: normal to inspection Left lower extremity: normal to inspection Course Reevaluation(s) Reevaluation #1: Repeat x-ray showing successful reduction, no fracture seen. Advised patient to follow-up with Orthopedics, call tomorrow to make appointment discharged on Tylenol and ibuprofen. Patient understands and agrees with plan. Patient given return precautions. Patient understands and agrees with plan. Patient stable for discharge Time: 21:16 Medications Administered Discontinued Medications Generic Name Dose Route Start Last Admin Trade Name Freq PRN Reason Stop Dose Admin Acetaminophen 975 mg 03/20/23 19:22 03/20/23 19:31 Acetaminophen 325 Mg Tablet PO 03/20/23 19:23 975 mg ONCE ONE Administration Procedures Orthopedic Joint Reduction Joint #1: Time Out Performed: Yes Side: left Joint Reduction Location: finger Technique used: traction/counter-traction Post-reduction neuro exam: intact Post-reduction vascular: intact Post Reduction X-Ray Obtained: Yes Post Reduction X-Ray Results: reduced Splint Applied: Yes Patient Tolerated Procedure: well Medical Decision Making Medical Decision Making MDM Narrative: 53 y/o M presenting to the ER for evaluation of left fifth finger pain x 4 days. Patient was seen and had xrays ordered today. Left fifth PIP dislocation noted. No obvious fracture. Successful joint reduction performed using manual traction without sedation for local anesthesia, see procedure note for further details. Patient placed in finger splint. Repeat x-ray ordered. Xray shows PIP dislocation. Vital within normal limits. Closed reduction performed by myself and colleague Leonel Moore PA-C - see procedure note. Differential Diagnosis Differential Diagnoses: The differential diagnosis associated with the presentation includes Dislocation, fracture, strain, sprain Admission/Observation Consideration of admission/observation: Escalation of care including admission/observation considered Lab Data [facility] Lab Attestation statement: I reviewed the patient's lab results. Independent Interpretation I performed an independent interpretation of an: Plain X-Ray Radiology Impression Discussion of test interpretation with radiology: I have reviewed the radiologist's reading. External Record Review External record reviewed: Inpatient record, Office record, Outpatient record, Prior outpatient labs, Prior outpatient radiology, Primary care record and Outside ED record Discharge Plan Discharge Clinical Impression: Dislocation of finger, closed Patient Disposition: Home, Self-Care Instructions: Finger Dislocation (ED) Additional Instructions: You had a finger dislocation, we were able to successfully put your finger back into place. There are no fractures seen on your x-ray. Please keep your finger in the finger splint until you follow-up with [facility]. Call tomorrow to make an appointment Please take prescribed ibuprofen and Tylenol as directed as needed for pain. You may use an ice pack for your finger to help with pain and swelling If any new or worsening symptoms occur please return for re-evaluation. Prescriptions: New ibuprofen 600 mg tablet 600 mg PO Q6H PRN (Reason: pain) Qty: 30 0RF acetaminophen 500 mg capsule 500 mg PO Q4-6H PRN (Reason: pain) Qty: 30 0RF No Action hydrocortisone [Proctosol HC] 2.5 % cream with perineal applicator 1 appl [place] BID PRN (Reason: hemorrhoids) Qty: 30 3RF amlodipine-valsartan 10-320 mg tablet 1 tab PO DAILY Referrals: [facility] [Provider Group]
[2023-03-20] MEDS: Acetaminophen 325 MG TABLET 975 MG PO (19:31)
== END 2023-03-20 21:39 | disposition home or self-care (01) ==
PROVIDERS: Emergency Provider Emergency Medicine; PCP Family Medicine
DX: S63.287A Dislocation of proximal interphalangeal joint of left little finger, initial encounter (principal); W01.0XXA Fall on same level from slipping, tripping and stumbling without subsequent striking against object, initial encounter; Y93.83 Activity, rough housing and horseplay; Y92.019 Unspecified place in single-family (private) house as the place of occurrence of the external cause; Y99.9 Unspecified external cause status
CPT/HCPCS: 26770; 29130; 73140; 99283

== ENCOUNTER 2023-04-04 14:36 | Outpatient (REF) | payer OTHER, SELFPAY ==
--- NOTE | ~2023-04-04 | XR_ITS ---
EXAMINATION: XR HAND, LEFT CLINICAL INFORMATION: Follow-up left finger post reduction COMPARISON: 03/20/2023 TECHNIQUE: 2 views of the left fifth digit. FINDINGS: There is persistent soft tissue swelling in the region of the previously identified dislocation at the PIP joint of the fifth digit which was subsequently reduced on the same date. On the lateral view, there is a concavity at the volar aspect of the base of the middle phalanx, not previously identified, concerning for possible associated fracture. There is subtle soft tissue ossicle/calcification at the volar aspect of the distal fifth proximal phalanx, difficult to appreciate on prior exams. XR/XR hand LT min 3V IMPRESSION: Concavity at the volar aspect of the base of the middle phalanx, not previously identified, concerning for possible associated fracture. There is subtle soft tissue ossicle/calcification at the volar aspect of the distal fifth proximal phalanx, difficult to appreciate on prior exams. Correlation with clinical exam recommended. Additional imaging with CT scan or MRI should be considered for better visualization as these modalities are much more sensitive for detection of fracture or other underlying pathology. This study was presented today 04/08/2023 at 9:37 AM. PSA staff will provide results to referring clinician at this time.
== END 2023-04-04 14:37 | disposition home or self-care (01) ==
LOC: HO.HOSX 14:36
PROVIDERS: PCP Family Medicine; Visit Provider Physician Assistant
DX: S63.257A Unspecified dislocation of left little finger, initial encounter (principal); W19.XXXA Unspecified fall, initial encounter; Y93.66 Activity, soccer; Y99.9 Unspecified external cause status; Y92.9 Unspecified place or not applicable
CPT/HCPCS: 73130

== ENCOUNTER 2023-04-16 14:51 | Outpatient (AMB) | payer OTHER, SELFPAY ==
[2023-04-16 14:56] VITALS: BMI 34.4
--- NOTE | 2023-04-16 14:56 | MHC.OFFVIS ---
Intake Vital Signs 04/16/23 14:56 Height 5 ft 8 in Weight 226 lb BMI 34.4 Intake Visit Reasons: OV-f/u Rt small finger Intake Note: Clemente a 53 year old right hand dominant male who presents today for a follow up of left fifth finger dislocation, DOI 03/16/23. Patient reports having discomfort and unable to bend his finger. Allergies No Known Allergies Allergy (Verified 04/16/23 14:57) HPI OV-f/u Rt small finger HPI Details 53-year-old right hand dominant male who returns to the office today for a follow-up of right small finger dislocation 03/16/23. He continues to have discomfort and he is unable to bend his finger. [facility] Medical History BPH (benign prostatic hyperplasia) COVID-19 vaccine series completed GERD (gastroesophageal reflux disease) HTN (hypertension) Sleep apnea Testicular lump Vitamin D deficiency Surgical History H/O colonoscopy History of appendectomy History of testicular surgery Hx of cystoscopy Hx of nasal polypectomy Hx of transurethral resection of prostate Family History Father Heart disease Mother Heart disease HTN (hypertension) Arthritis Depression Social History Patient Tobacco Use Status: Never used Tobacco Current occupational status: employed and unemployed 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 He does continue to have some residual swelling along the distal aspect of the small finger. He can fully extend the digit. He does have full ROM at the level of MCP. However, at PIP we can only flex him to about 40 degrees. He does have full extension. NVI. Assessment & Plan Assessment & Plan (1) Finger dislocation: Code(s): S63.259A - Unspecified dislocation of unspecified finger, initial encounter Plan Dr. Rodriguez was available to see the patient with me today. We did a great work aggressively with him to improve his motion working on flexing the PIP joint and holding it in flexion for approximately 20 seconds and then releasing. We encouraged him on working this several times throughout the day and also work on physical therapy. He does have a physical therapy appointment today and I would like to see him back in 2 weeks for ROM check, sooner if needed. Orders: Orders XR hand LT min 3V 04/16/23 M79.642 - Pain in left hand Patient Instructions: Scribed for Agusto Gonzalez PA-C, by Andrew Ricardo medical insurance coder, on 04/16/2023 at 3:00 PM [place]. Agusto Kearns PA-C, have personally reviewed and agree with the information entered by the scribe. Coding Level of Care Code Est Pt Level 3 (58554) Diagnoses Finger dislocation S63.259A
== END 2023-04-16 15:35 | disposition home or self-care (01) ==
PROVIDERS: PCP Family Medicine; Visit Provider Physician Assistant
DX: S63.257A Unspecified dislocation of left little finger, initial encounter (principal)
CPT/HCPCS: 99213

== ENCOUNTER 2023-04-16 14:51 | Outpatient (REF) | payer OTHER, SELFPAY ==
--- NOTE | ~2023-04-16 | XR_ITS ---
EXAMINATION: XR HAND, LEFT CLINICAL INFORMATION: Pain. COMPARISON: None available. TECHNIQUE: PA, lateral, and oblique views of the left hand. FINDINGS: There is again a mild swan-neck deformity of the left fifth finger. Volar to the head of the fifth proximal phalanx, a small avulsion fragment is redemonstrated, with corresponding bony defect at the volar aspect of the base of the fifth middle phalanx. There is no new callus formation. No dislocation is seen. There is generalized soft tissue swelling. XR/XR hand LT min 3V IMPRESSION: A mild swan-neck deformity is redemonstrated the left fifth finger. A small avulsion fragment arising from the volar aspect of the base of the left fifth middle phalanx is redemonstrated, on the lateral view overlapping the volar aspect of the head of the fifth proximal phalanx. This could be further evaluated with MRI. Continued Orthopedic Surgery evaluation and management is recommended.
== END 2023-04-16 14:52 | disposition home or self-care (01) ==
LOC: HO.HOSX 14:51
PROVIDERS: PCP Family Medicine; Visit Provider Physician Assistant
DX: S63.257D Unspecified dislocation of left little finger, subsequent encounter (principal); X58.XXXD Exposure to other specified factors, subsequent encounter
CPT/HCPCS: 73130

== ENCOUNTER 2023-04-30 15:26 | Outpatient (AMB) | payer OTHER, SELFPAY ==
--- NOTE | 2023-04-30 15:28 | A.OFFVIS_ITS ---
Intake Vital Signs 04/30/23 15:32 Height 5 ft 8 in Weight 226 lb BMI 34.4 Intake Visit Reasons: OV- Rt SF dislocation ROM check, DOI 03/16/23 Intake Note: Clemente a 53 year old right hand dominant male who presents today for a follow up of left fifth finger dislocation, DOI 03/16/23. Patient reports that he continues to work with OT and has had improvement with ROM. He continues to having swelling in his SF. Allergies No Known Allergies Allergy (Verified 04/30/23 15:32) HPI OV- Rt SF dislocation ROM check, DOI 03/16/23 HPI Details 53-year-old right hand dominant male who returns to the office today for a follow-up of right small finger dislocation, 03/16/23. He continues to experience pain in his right small finger. He c/o stiffness and is unable to bend his finger in the morning but it does improve throughout the day as he worked on his exercises. He continues to work with OT, no new concerns. [facility] Medical History BPH (benign prostatic hyperplasia) COVID-19 vaccine series completed GERD (gastroesophageal reflux disease) HTN (hypertension) Sleep apnea Testicular lump Vitamin D deficiency Surgical History H/O colonoscopy History of appendectomy History of testicular surgery Hx of cystoscopy Hx of nasal polypectomy Hx of transurethral resection of prostate Family History Father Heart disease Mother Heart disease HTN (hypertension) Arthritis Depression Social History Patient Tobacco Use Status: Never used Tobacco Current occupational status: employed and unemployed 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 He does continue to have some residual swelling along the distal aspect of the small finger. He can fully extend the digit. He does have full ROM at the level of MCP and his PIP motion has improved to 90. He does have slight swan neck deformity. NVI. Assessment & Plan Assessment & Plan (1) Finger dislocation: Code(s): S63.259A - Unspecified dislocation of unspecified finger, initial encounter Plan He has made good progress since his last visit with us. I encouraged him to continue working with occupational therapy and continue with his home exercises. I did explain that this is something which will continue to take time and work to improve and he bears a chance that he may not gain a 100 percent of his motion in that finger due to severity of the injury. But he is at a point where he is completely functional and should not have limitations with activity. He is content with this plan and will see me back as needed. Patient Instructions: Scribed for Agusto Gonzalez PA-C, by Andrew Ricardo medical office specialist, on 04/30/2023 at 3:30 PM [place]. Agusto Kearns PA-C, have personally reviewed and agree with the information entered by the scribe. Coding Level of Care Code Est Pt Level 3 (56050) Diagnoses Finger dislocation S63.259A
[2023-04-30 15:32] VITALS: BMI 34.4
== END 2023-04-30 16:05 | disposition home or self-care (01) ==
PROVIDERS: PCP Family Medicine; Visit Provider Physician Assistant
DX: S63.257A Unspecified dislocation of left little finger, initial encounter (principal)
CPT/HCPCS: 99213

== ENCOUNTER → 2023-04-30 15:26 | Outpatient (BNVA) | payer OTHER, SELFPAY | PROVIDERS: PCP Family Medicine; Visit Provider Physician Assistant ==

== ENCOUNTER 2023-05-13 15:30 | Outpatient (RCR) | payer OTHER, SELFPAY ==
--- NOTE | 2023-04-09 15:55 | MHC.OT.EP ---
[address] [phone] Occupational Therapy Plan of Care Patient Name: Clemente Zepeda Date of Evaluation: 04/09/23 Diagnosis: Dislocation of left 5th PIP joint Pain Location: Pain: left small finger Current: 2/10 Worst: 7/10 Pain Score: 2 Pain Scale Used: Numeric (0 - 10) Aggravating Factors: Forceful grasp, bumping the finger, attempting to bend at PIP joint Alleviating Factors: Arthritis cream, ice Assessment: Pt is a 53 y/o male referred to OT with left 5th digit PIP dislocation DOI 03/16/23. Pt. reports he was playing soccer with his child, fell on outstretched small finger and dislocated the joint sideways. Pt. presented to ER on same day, digit was reduced and splinted x 3 weeks. Pt. presented to ortho yesterday for x-ray and follow up with instructions for aggressive ROM. A 31% limitation is reported per the Quick DASH assessment. There is significant edema at the PIP joint. Pt. was instructed in retrograde massage, joint blocking and hand ROM exercises. Issued handout for HEP. Due to patients work schedule, he is requesting only 1x/wk. Reinforced importance of aggressive ROM and frequency of exercise. Frequency and Duration: The patient will be seen 1-2x/wk for 4 weeks Short Term Goals: IND with edema management techniques Decrease pain <2/10 with activity Improve 5th digit PIP flexion by 10 degrees Mcfp Goals: Pain free with BADL's/IADL's 5th digit PIP flexion > 50 degrees IND with progression of HEP Improve gross grasp by >10# Treatment Plan: Therapeutic Exercise Therapeutic Activity Home Exercise Program Patient Education Edema Control Ultrasound Fluidotherapy Joint Mobilization Soft Tissue Mobilization Kinesiotaping Electronically Signed By: April Haile, OTR/L Please Sign and return to therapist. Thank you once again for your referral.
== END 2023-06-05 13:50 | disposition home or self-care (01) ==
LOC: HO.OT 15:30
PROVIDERS: PCP Family Medicine; Visit Provider Physician Assistant
DX: S63.257D Unspecified dislocation of left little finger, subsequent encounter (principal)
CPT/HCPCS: 97035; 97110; 97165

== ENCOUNTER 2023-06-18 11:30 | Outpatient (REF) | payer OTHER, SELFPAY ==
--- NOTE | ~2023-06-18 | XR_ITS ---
EXAMINATION: XR HAND, LEFT CLINICAL INFORMATION: Left hand pain. COMPARISON: Multiple priors, most recent left hand radiographs dated 04/16/2023. TECHNIQUE: PA, lateral, and oblique views of the left hand. FINDINGS: Redemonstration of an avulsion fracture at the volar base of the 5th middle phalanx with the fracture fragment displaced proximally. Mild callus formation when compared to the prior examination. Unchanged hyperextension at the proximal interphalangeal joint. There are new periarticular erosions at the 5th proximal phalangeal head measuring up to 0.3 cm, not seen on the prior examination. No new fracture or dislocation. XR/XR hand LT min 3V IMPRESSION: 1. Redemonstration of an avulsion fracture at the volar base of the 5th middle phalanx with mild callus formation when compared to the prior examination. 2. New periarticular erosions at the 5th proximal phalangeal head measuring up to 0.3 cm, not seen on the prior examination. 3. Hyperextension at the 5th proximal interphalangeal joint, unchanged.
== END 2023-06-18 11:31 | disposition home or self-care (01) ==
LOC: HO.HOSX 11:30
PROVIDERS: Visit Provider Orthopaedic Surgery
DX: S63.251A Unspecified dislocation of left index finger, initial encounter (principal)
CPT/HCPCS: 73130

== ENCOUNTER 2023-06-18 14:54 | Outpatient (AMB) | payer OTHER, SELFPAY ==
[2023-06-18 15:47] VITALS: BMI 34.4
--- NOTE | 2023-06-18 15:47 | MHC.OFFVIS ---
Intake Vital Signs 06/18/23 15:47 Height 5 ft 8 in Weight 226 lb BMI 34.4 Intake Visit Reasons: OV-f/u Rt small finger Intake Note: Clemente 53 year old male presents today for his follow up for his right small finger dislocation ROM check, DOI 03/16/23. States he is working on his ROM with a therapist with improvement. States his pinky clicks and cracks at his DIP. Allergies No Known Allergies Allergy (Verified 06/18/23 15:55) HPI OV-f/u Rt small finger HPI Details Clemente is a 53 year old right hand dominant man who presents to discuss his left small finger ROM. He had a small finger PIP joint dislocation on 03/16/23 and has been following with [facility] for this. He has been attending OT hand therapy to work on ROM and function, which he says is going well but he continues to have a cracking in his finger with motion, mostly at the PIP joint. He complains today primarily of pain an swelling in his small finger with activity, as well as a snapping sensation when trying to flex his small finger PIP joint. He has been attending OT hand therapy and working on ROM exercises at home. He says due to his work schedule he has stopped attending [facility] and has been attending [facility], who had made him custom splints to wear which he says have been somewhat helpful. He is seen today wearing a custom thero-plastic silver-ring splint like orthosis, but this is thicker than a typical Silver-ring splint. He says this splint has been helpful for him. [facility] Medical History BPH (benign prostatic hyperplasia) COVID-19 vaccine series completed GERD (gastroesophageal reflux disease) HTN (hypertension) Sleep apnea Testicular lump Vitamin D deficiency Surgical History H/O colonoscopy History of appendectomy History of testicular surgery Hx of cystoscopy Hx of nasal polypectomy Hx of transurethral resection of prostate Family History Father Heart disease Mother Heart disease HTN (hypertension) Arthritis Depression Social History Patient Tobacco Use Status: Never used Tobacco Current occupational status: employed and unemployed 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 This includes the small finger. When he goes to make a fist the PIP joint initially will not flex actively. Then he has a sudden snap as the PIP joint is brought into some flexion. After this he is able to actively bring the small finger down to a fully closed fist. The PIP joint is stable radially and ulnarly. When looking at the PIP joint clinically in full extension he does have slight hyper extension of the joint. If I hold the PIP joint and ever so slight flexion he can then actively smoothly bring the PIP joint and his small finger to full flexion without any kind of jump. The joint is not particularly tender on exam He does not seem to have any pain when the finger jumps at the PIP joint Radiographs: Radiographs three views of the patient's left hand with attention to the small finger were reviewed by me today in clinic. It appears that he may have had a fracture on the volar aspect of the base of the middle phalanx at the PIP joint. This may have happened during his dislocation. The result is that the PIP joint is slightly ease subluxated dorsally in other words the base of the middle phalanx is slightly translated dorsally relative to the articular surface of the proximal phalanx satisfactory alignment on the PA view of the joint Psych Appearance: grossly normal Affect: normal affect Attitude: cooperative Assessment & Plan Assessment & Plan (1) Finger dislocation: Code(s): S63.259A - Unspecified dislocation of unspecified finger, initial encounter Plan Assessment & Plan: 1. Left small finger PIP instability status post dislocation DOI: 03/16/23 Reduced in ED on 03/20/23 He is centrally has a subtle but problematic swan-neck deformity, likely because of the slight dorsal translation at the PIP joint in extension. His hand therapists at [facility] had than a nice job of helping him improve his range of motion, and he can now make a closed fist. They have also tried to fabricate a thermoplastic ?silver ring splint? which he finds has been the 1st splint that has been helpful. It still is allowing for a little bit too much extension at the PIP. I educated the patient about this problem We discussed operative and non operative treatment options. I certainly could manage this operatively, where I would likely take a slip of the FDS tendon and secured proximally, possibly to the A2 buddy to prevent the PIP joint from going into full extension. I explained this would take a certain amount of time to recover. Understandably he would like to try and avoid operative management if possible. I showed him to search ?silver ring splint ?on his smart phone search engine. He took a picture of a typical silver ring splint. He is going to look at companies that have been make this splint and see if he is going to need some measurements for the splint. He understands that it is likely not covered by his medical insurance. Either way, the patient is interested in possibly getting 1 He will show it to his OT hand therapist. They may be helpful at in getting measurements that need to be sent to the company that makes a properly fitted silver ring splint for this purpose. He should continue to work with OT hand therapy on hand function He will follow up in 6-8 weeks to see how he is doing. Please note that greater than 30 minutes was spent with this patient gathering the history, evaluating the patient, formulating a treatment plan and documenting the visit. Scribed for Marian Rodriguez MD by Jose Miguel Rose, medical lab assistant, on 06/18/23 at 4:30 PM, EST. Coding Level of Care Code Est Pt Level 4 (68583) Diagnoses Finger dislocation S63.259A
== END 2023-06-18 16:36 | disposition home or self-care (01) ==
PROVIDERS: PCP Family Medicine; Visit Provider Orthopaedic Surgery
DX: S63.257A Unspecified dislocation of left little finger, initial encounter (principal)
CPT/HCPCS: 99213

== ENCOUNTER 2023-07-12 09:57 | Emergency (ER) | payer OTHER, SELFPAY | END 2023-07-12 12:17 | disposition left against medical advice (07) | LOC: HO.ED 12:16 | PROVIDERS: Emergency Provider Emergency Medicine; PCP Family Medicine | DX: Z53.21 Procedure and treatment not carried out due to patient leaving prior to being seen by health care provider (principal) ==

== ENCOUNTER 2023-07-12 18:32 | Emergency (ER) | payer OTHER, SELFPAY ==
--- NOTE | 2023-07-12 18:37 | ED.GENADULT ---
HPI - General Adult General Chief complaint: General Medical Stated complaint: Swelling left side of face, itching all over body Time Seen by Provider: 07/12/23 23:59 Source: patient Mode of arrival: ambulatory Limitations: no limitations History of Present Illness HPI narrative: 53 yo male with L ear pain and swelling then noted in front of ear became swollen and itchy/painful today - took benadryl it improved. Ear hurt x 5 day, no trauma or fevers. He has no problem swallowing. He also notes new rash on arms no new exposure it is resolved but it happened 2 weeks ago complaint: L facial swelling Onset (ago): day(s) (1) Location: face Radiation: non-radiation Severity: moderate Quality: aching Pain Consistency: intermittent Relieving factors: medication Exacerbating factors: none Associated symptoms: other (had resolved rash, resolved L ear pain) Treatments prior to arrival: other (benadryl) Related Data Home Medications Medication Instructions Recorded Confirmed amlodipine 10 mg-valsartan 320 mg 1 tab PO DAILY 03/15/22 02/05/23 tablet Previous Rx's Medication Instructions Recorded hydrocortisone 2.5 % topical cream 1 appl SC BID PRN hemorrhoids #30 11/22/22 with perineal applicator grams (Proctosol HC) acetaminophen 500 mg capsule 500 mg PO Q4-6H PRN pain #30 caps 03/20/23 ibuprofen 600 mg tablet 600 mg PO Q6H PRN pain #30 tabs 03/20/23 amoxicillin 875 mg-potassium 1 tab PO BID #13 tabs 07/13/23 clavulanate 125 mg tablet Allergies Allergy/AdvReac Type Severity Reaction Status Date / Time No Known Allergies Allergy Verified 06/18/23 15:55 Review of Systems Review of Systems: Constitutional : No Fever, No Chills ENT/Mouth : No swallowing difficulty, no change in voice, positive facial swelling Eyes: No Eye Pain, No Swelling Cardiovascular : No Chest Pain, No SOB Respiratory : No Cough, No Sputum Gastrointestinal : No Nausea, No Vomiting, No Diarrhea Genitourinary : No Dysuria Musculoskeletal : No Myalgias Skin : No rash Neuro : No Weakness, No Numbness, No Headache PMFSH Past Medical History Attestation statement: The following information was validated with the patient. Source: old records reviewed Medical History GERD (gastroesophageal reflux disease) Sleep apnea COVID-19 vaccine series completed BPH (benign prostatic hyperplasia) Vitamin D deficiency HTN (hypertension) Testicular lump Surgical History Hx of nasal polypectomy History of testicular surgery H/O colonoscopy Hx of cystoscopy Hx of transurethral resection of prostate History of appendectomy Family History Family History Father Heart disease Mother Heart disease HTN (hypertension) Arthritis Depression Social History Social History Alcohol intake: never Patient Tobacco Use Status: Never used Tobacco Current occupational status: employed and unemployed 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 Oriented X3. No acute distress. Eyes: Pupils equal, round and reactive to light. ENT: Pharynx normal. no sublingual and submandibular swelling, no mastoid ttp, L ear canal and TM is normal. L preauricular area is slightly tender enlarged node no ttp along parotid no stone seen of felt, no facial cellulitis Neck: Normal inspection. Neck supple. CVS: Pulses normal. Respiratory: No respiratory distress. Abdomen: Soft and nontender. Skin: Skin warm and dry. Normal skin color. Extremities: No lower extremity edema. Neuro: Oriented X 3. No motor deficit. No sensory deficit. Course Course Course Narrative: This is a rapid medical exam. Deferred additional HPI, ROS, PE to primary provider. 53 yo male with history of HTN here with complaints of intermittent left facial swelling x 1 week. On exam patient has preauricular swelling/TTP. ?parotitis. Will obtain labs if patient needs CT scan VSS Medical Decision Making Medical Decision Making MDM Narrative: 53 yo male here with resolved L ear pain now with swelling and pain to L preauricular area concerning for lymph node issue at this time given pain and swelling - no resp issues or other areas of swelling I am going to start on augmentin and DC home with precautions as for resolved itching and rash he can see his PCP and ironworker machine operator. Differential Diagnosis Differential Diagnoses: The differential diagnosis associated with the presentation includes sialoadenitis, lymphadenitis Lab Data MDM Lab Attestation statement: I reviewed the patient's lab results. 07/12/23 19:03 07/12/23 19:03 Labs: Lab Results 07/12/23 Range/Units 19:03 WBC 9.4 (4.8-10.8) X10*3/uL RBC 4.93 (4.60-5.80) X10*6/uL Hgb 13.7 L (14.0-18.0) g/dl Hct 41.9 L (42.0-52.0) % MCV 85.0 (80.0-98.0) fL MCH 27.8 (27.0-33.0) pg MCHC 32.7 (31.0-36.0) g/dl RDW 15.1 (11.0-16.0) % Plt Count 320 (160-400) X10*3/uL MPV 9.8 (9.4-12.4) fL Immature Gran % (Auto) 0.5 H (0.0-0.4) % Neut % (Auto) 67.7 (45-73) % Lymph % (Auto) 19.5 L (20-40) % Callahan % (Auto) 7.3 (2-11) % Eos % (Auto) 4.3 H (0-4) % Baso % (Auto) 0.7 (0-2) % Lymph # (Auto) 1.8 (1.2-4.9) X10*3/uL Callahan # (Auto) 0.7 (0.1-1.2) X10*3/uL Eos # (Auto) 0.4 (0.0-0.4) X10*3/uL Baso # (Auto) 0.1 (0.0-0.2) X10*3/uL Abs Immat Gran (auto) 0.05 H (0.00-0.03) X10*3/uL Absolute Neuts (auto) 6.4 (2.0-8.3) x10*3/uL Absolute Nucleated RBC 0.000 (0.0-0.012) X10*3/uL Nucleated RBC % (auto) 0.0 (0.0-0.2) /100WBC Sodium 141 (135-145) mmol/L Potassium 4.3 (3.3-5.1) mmol/L Chloride 108 (96-108) mmol/L Carbon Dioxide 22 (22-29) mmol/L Anion Gap 15 (12-20) BUN 19 H (9-16) mg/dL Creatinine 0.97 (0.5-1.4) mg/dL Estim Creat Clear Calc 106.7 Estimated GFR > 60 Random Glucose 106 (60-115) mg/dL Calcium 9.3 (8.4-10.2) mg/dL External Record Review External record reviewed: Inpatient record Prescription Management I considered prescription management with: Antibiotic Discharge Plan Discharge Clinical Impression: Acute lymphadenitis Patient Disposition: Home, Self-Care Instructions: Adenitis (ED) Additional Instructions: ask your doctor to see an ironworker machine operator. return for worsening swelling, pain, fevers, no improvement with antibiotic or any other concerns. On amoxicillin-clavulanate, softer bowel movements are to be expected. Call your provider if you move your bowels more than 4 times a day, your bowel movements are almost all liquid, or you get a rash.? Prescriptions: New amoxicillin-pot clavulanate 875-125 mg tablet 1 tab PO BID Qty: 13 0RF No Action ibuprofen 600 mg tablet 600 mg PO Q6H PRN (Reason: pain) Qty: 30 0RF acetaminophen 500 mg capsule 500 mg PO Q4-6H PRN (Reason: pain) Qty: 30 0RF hydrocortisone [Proctosol HC] 2.5 % cream with perineal applicator 1 appl SC BID PRN (Reason: hemorrhoids) Qty: 30 3RF amlodipine-valsartan 10-320 mg tablet 1 tab PO DAILY
[2023-07-12 18:38] VITALS: BP 102/70; PULSE 91; RESP 18; TEMP 36.5; O2SAT 95; BMI 35.8
[2023-07-12 19:07] LABS: MANUAL DIFF FLAG NO
[2023-07-12 19:09] LABS: Basophils Absolute Auto 0.1 X10*3/uL (0.0-0.2); Basophils Percent Auto 0.7 % (0-2); Eosinophils Absolute Auto 0.4 X10*3/uL (0.0-0.4); Eosinophils Percent Auto 4.3 % (0-4); Hematocrit 41.9 % (42.0-52.0); Hemoglobin 13.7 g/dl (14.0-18.0); Imm Gran Abs Auto 0.05 X10*3/uL (0.00-0.03); Imm Gran Pct Auto 0.5 % (0.0-0.4); Lymphocytes Absolute Auto 1.8 X10*3/uL (1.2-4.9); Lymphocytes Percent Auto 19.5 % (20-40); Mean Corpuscular HGB Conc 32.7 g/dl (31.0-36.0); Mean Corpuscular Hemoglobin 27.8 pg (27.0-33.0); Mean Platelet Volume 9.8 fL (9.4-12.4); Monocytes Absolute Auto 0.7 X10*3/uL (0.1-1.2); Monocytes Percent Auto 7.3 % (2-11); Neutrophils Absolute Auto 6.4 x10*3/uL (2.0-8.3); Neutrophils Percent Auto 67.7 % (45-73); Platelet Count 320 X10*3/uL (160-400); Red Blood Count 4.93 X10*6/uL (4.60-5.80); Red Cell Distribution Width 15.1 % (11.0-16.0); White Blood Count 9.4 X10*3/uL (4.8-10.8)
[2023-07-12 19:22] LABS: Anion Gap 15 (12-20); Blood Urea Nitrogen 19 mg/dL (9-16); Calcium 9.3 mg/dL (8.4-10.2); Carbon Dioxide 22 mmol/L (22-29); Chloride 108 mmol/L (96-108); Creatinine Clr Calc Pharmacy 106.7; Estimated Glomerular Filt Rate > 60; Glucose Random 106 mg/dL (60-115); Potassium 4.3 mmol/L (3.3-5.1); Sodium 141 mmol/L (135-145)
[2023-07-12 23:39] VITALS: BP 121/88; PULSE 81; RESP 16; TEMP 36.7; O2SAT 95
--- NOTE | 2023-07-12 23:40 | MHC.EDTECH ---
this pct just assumed care of pt ,vitals taken,pt sitting at the side of bed waiting to see provider .
[2023-07-13 00:07] VITALS: BP 131/95; PULSE 76; RESP 18; O2SAT 95
--- NOTE | 2023-07-13 00:20 | PC.NURSE ---
PT AOx3, pt ambulated with a steady gait, speaking in full sentences, pt reporting 7/10 left sided facial swelling, with ear pain. Pt sitting on stretcher in no apparent distress.
[2023-07-13] MEDS: Amoxicillin/Potassium Clav 875 MG TABLET PO (00:28)
== END 2023-07-13 00:43 | disposition home or self-care (01) ==
PROVIDERS: Nurse Practitioner Family; Emergency Provider Emergency Medicine; PCP Family Medicine
DX: L04.0 Acute lymphadenitis of face, head and neck (principal); H92.02 Otalgia, left ear; Z79.899 Other long term (current) drug therapy
CPT/HCPCS: 36415; 80048; 85025; 99283; 99284

== ENCOUNTER 2023-07-15 16:23 | Outpatient (REF) | payer OTHER, SELFPAY ==
[2023-07-23 18:24] LABS: IgE Antibody (Anti-IgE IgG) 14 ng/mL (<168)
== END 2023-07-15 16:24 | disposition home or self-care (01) ==
LOC: HO.CHCLDS 16:23
PROVIDERS: Visit Provider Family Medicine
DX: L50.9 Urticaria, unspecified (principal)
CPT/HCPCS: 36415; 83520

== ENCOUNTER 2023-10-20 15:31 | Outpatient (REF) | payer BC, MEDICAID, SELFPAY ==
[2023-10-20 18:13] LABS: Estimated Average Glucose 114 mg/dL; Hemoglobin A1c % 5.6 % (<6.0)
== END 2023-10-20 15:32 | disposition home or self-care (01) ==
LOC: HO.CHCLDS 15:31
PROVIDERS: Visit Provider Registered Nurse
DX: R20.0 Anesthesia of skin (principal); R20.2 Paresthesia of skin
CPT/HCPCS: 36415; 83036

== ENCOUNTER 2023-11-10 14:39 | Outpatient (AMB) | payer BC, SELFPAY ==
--- NOTE | 2023-11-10 14:40 | MHC.OFFVIS ---
Intake Intake Visit Reasons: Tele- Rt knee pain Intake Note: Clemente is a 53 year old male who presnets today VIA telephone for concerns of right knee pain. Allergies No Known Allergies Allergy (Verified 06/18/23 15:55) HPI Tele- Rt knee pain HPI Details This is a 53 yo with right knee pain for several months. He describe unremitting knee pain that is not improved with non narcotic pain medicine. [facility] Medical History GERD (gastroesophageal reflux disease) Sleep apnea COVID-19 vaccine series completed BPH (benign prostatic hyperplasia) Vitamin D deficiency HTN (hypertension) Testicular lump Surgical History Hx of nasal polypectomy History of testicular surgery H/O colonoscopy Hx of cystoscopy Hx of transurethral resection of prostate History of appendectomy Family History Father Heart disease Mother Heart disease HTN (hypertension) Arthritis Depression Social History Alcohol intake: never Patient Tobacco Use Status: Never used Tobacco Current occupational status: employed and unemployed 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 He is unable to come into the office. An MRI was ordered Orders: Orders MR knee LT wo con 11/10/23 M23.92 - Unspecified internal derangement of left knee Medications: New ibuprofen 800 mg PO TID 30 days PRN 90 tabs 0RF pain Telehealth Telehealth Location of provider rendering services: practice address Location of patient: address on file Patient Identification confirmed using: Name, : Yes Telehealth method: voice only Patient verbally consented to treatment: Yes Patient verbally consented to billing insurance company: Yes Patient informed of any privacy concerns related to visit: Yes Minutes spent on Phone/Video with Pt.: 5 Coding Level of Care Code Tele Est Pt Level 2 (28450) Diagnoses Internal derangement of left knee M23.92
== END 2023-11-10 15:02 | disposition home or self-care (01) ==
LOC: HO.HOS 14:39
PROVIDERS: PCP Family Medicine; Visit Provider Orthopaedic Surgery
DX: M23.92 Unspecified internal derangement of left knee (principal)
CPT/HCPCS: 99441

== ENCOUNTER → 2023-11-10 14:39 | Outpatient (BNVA) | payer BC, SELFPAY | PROVIDERS: PCP Family Medicine; Visit Provider Orthopaedic Surgery ==

== ENCOUNTER 2023-12-12 13:51 | Outpatient (AMB) | payer MEDICAID, SELFPAY ==
--- NOTE | 2023-12-12 14:07 | A.OFFVIS_ITS ---
Intake Intake Visit Reasons: PVR/Urinalysis(bph/hematuria) Intake Note: Patient presents today for a follow-up on PVR/Urinalysis Meds- None Allergies to Antibiotic- No Known Allergies Blood Thinner- None Post Void Residual: 0ml Solar Project Engineer Required: No Accompanied by: Self / Same As Patient Allergies No Known Allergies Allergy (Verified 12/12/23 14:13) HPI HPI Comments History of Present Illness Details Clemente is a pleasant male. He is a patient of Dr. Gan. 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 Imaging - 03/20 scrotal ultrasound was scarring o n left epididymis Bladder outlet obstruction TURP 2012 [facility] Medical History GERD (gastroesophageal reflux disease) Sleep apnea COVID-19 vaccine series completed BPH (benign prostatic hyperplasia) Vitamin D deficiency HTN (hypertension) Testicular lump Surgical History Hx of nasal polypectomy History of testicular surgery H/O colonoscopy Hx of cystoscopy Hx of transurethral resection of prostate History of appendectomy Family History Father Heart disease Mother Heart disease HTN (hypertension) Arthritis Depression Social History Alcohol intake: never Patient Tobacco Use Status: Never used Tobacco Current occupational status: employed and unemployed 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 Review of Systems Const Denies chills and Denies fever(s) Card Reports no additional complaints and Denies syncope Resp Denies cough GI Denies abdominal pain and Denies heartburn Reports as per HPI and Denies change in libido Neuro Denies syncope Psych Denies change in libido Endo Denies change in libido Physical Exam Const General: cooperative, healthy appearing, comfortable and no acute distress Orientation/consciousness: patient oriented x3 HEENT Face and sinus: Yes normal facial exam Mouth: moist mucous membranes Neck Neck: Yes normal visual inspection, Yes full ROM and Yes trachea midline Chest Chest palpation & inspection: normal inspection of the chest Resp Effort & Inspection: normal respiratory effort, able to speak in complete sentences and no respiratory distress GI Inspection: Yes normal to inspection Back/Spine/Pelvis Cervical Spine: normal cervical lordosis Thoracic/Lumbar Spine: thoracic and lumbar spine normal to inspection Skin General skin exam: no rashes or lesions noted Neuro General: patient oriented x3, gait normal, tone normal and moves all extremities Extrem General: Yes normal to inspection and Yes capillary refill normal Office Procedures Post Void Residual Post Residual Void Post Void Residual (PVR): 0 06734-Gpit Void Residual by ultrasound Results AMB Urinalysis, Automated UA Leukoctes 0 Cyndi/uL Last Edit by Vinita Elliott [facility] on 12/12/23 14 :22 UA Nitrite Negative Last Edit by Vinita Elliottdavid Elliott [facility] on 12/12/23 14: 22 UA Urobilinogen 0.2 mg/dL Last Edit by Vinita Elliott [facility] on 4 14:22 UA Protein 15 mg/dL Last Edit by Vinita Elliottdavid Elliott [facility] on 12/12/23 14:2 2 UA pH 6.0 Last Edit by Vinita Elliott [facility] on 12/12/23 14:22 UA Blood 80 Nas/uL Last Edit by Vinita Elliottdavid Elliott [facility] on 12/12/23 14:22 UA Specific [place] 1.015 Last Edit by Vinita Elliott [facility] on 14:22 UA Ketone Negative Last Edit by Vinita Elliott [facility] on 12/12/23 14:2 2 UA Bilirubin 0 mg/dL Last Edit by Vinita Elliott [facility] on 12/12/23 14: 22 UA Glucose 0 mg/dL Last Edit by Vinita Elliott [facility] on 12/12/23 14:22 Results Reviewed Results Reviewed: Laboratory Last Values Urine pH (Auto) 6.0 12/12/23 14:21 Specific [place] (Auto) 1.015 12/12/23 14:21 Urine Protein (Auto) 15 mg/dL 12/12/23 14:21 Glucose (UA)(Auto) 0 mg/dL 12/12/23 14:21 Urine Ketones (Auto) Negative 12/12/23 14:21 Urine Blood (Auto) 80 Nas/uL 12/12/23 14:21 Urine Nitrite (Auto) Negative 12/12/23 14:21 Urine Bilirubin (Auto) 0 mg/dL 12/12/23 14:21 Urine Urobilinogen (Auto) 0.2 mg/dL 12/12/23 14:21 Leukocyte Esterase (Auto) 0 Cyndi/uL 12/12/23 14:21 Assessment & Plan Assessment & Plan (1) Microscopic hematuria: Code(s): R31.29 - Other microscopic hematuria Plan Twelve month follow-up Orders: Orders AMB Urinalysis Automated Today R33.9 - Retention of urine, unspecified AMB Post Void Residual by ultrasound Today R33.9 - Retention of urine, unspecified Patient Instructions: Imaging studies, laboratory and physical exam results were discussed and reviewed in detail. No major barriers to patient understanding were identified. An opportunity to ask questions regarding the treatment plan was provided. All questions were answered. The patient expressed understanding and agreement with the above treatment plan. The patient is aware they should contact our office by phone for worsening of their current condition or the appearance of new urologic symptoms. Compliance is encouraged with any medications and followup testing that is ordered. It is a privilege to participate in the urologic care of your patient. If you have any questions or concerns regarding treatment for the above conditions, or other urologic issues, please do not hesitate to contact me. The office telephone contact is [phone]. This note is constructed using voice recognition software. While every effort has been made to ensure accuracy research chemical engineer errors may have been included. Yours sincerely, Dr Bernardo Zhang MD, [facility] - Urology Providers of Expert, Compassionate Care for the Genitourinary System Coding Level of Care Code Est Pt Level 4 (21592) Diagnoses Microscopic hematuria R31.29 CPT Codes Post Residual Void - PVR CPT Code: 28185-Oamb Void Residual by ultrasound ([id number])
== END 2023-12-12 14:35 | disposition home or self-care (01) ==
PROVIDERS: Visit Provider Urology
DX: R31.29 Other microscopic hematuria (principal)
CPT/HCPCS: 99213

== ENCOUNTER → 2023-12-12 13:51 | Outpatient (BNVA) | payer MEDICAID, SELFPAY | PROVIDERS: Visit Provider Urology | DX: R31.29 Other microscopic hematuria (principal); R33.9 Retention of urine, unspecified | CPT/HCPCS: 51798; 81003; 99212 ==

== ENCOUNTER 2024-04-29 15:15 | Outpatient (REF) | payer MEDICAID, SELFPAY ==
[2024-04-29 17:31] LABS: MANUAL DIFF FLAG NO
[2024-04-29 17:35] LABS: Basophils Absolute Auto 0.1 X10*3/uL (0.0-0.2); Basophils Percent Auto 0.7 % (0-2); Eosinophils Absolute Auto 0.4 X10*3/uL (0.0-0.4); Hematocrit 43.8 % (42.0-52.0); Hemoglobin 14.8 g/dl (14.0-18.0); Imm Gran Abs Auto 0.03 X10*3/uL (0.00-0.03); Imm Gran Pct Auto 0.3 % (0.0-0.4); Lymphocytes Absolute Auto 1.8 X10*3/uL (1.2-4.9); Lymphocytes Percent Auto 20.3 % (20-40); Mean Corpuscular HGB Conc 33.8 g/dl (31.0-36.0); Mean Corpuscular Hemoglobin 27.1 pg (27.0-33.0); Mean Corpuscular Volume 80.1 fL (80.0-98.0); Mean Platelet Volume 9.8 fL (9.4-12.4); Monocytes Absolute Auto 0.6 X10*3/uL (0.1-1.2); Monocytes Percent Auto 6.7 % (2-11); Platelet Count 368 X10*3/uL (160-400); Red Blood Count 5.47 X10*6/uL (4.60-5.80); Red Cell Distribution Width 15.2 % (11.0-16.0); White Blood Count 8.8 X10*3/uL (4.8-10.8)
[2024-04-29 18:39] LABS: TSH reflex Free T4 1.11 uIU/mL (0.32-4.0)
[2024-04-29 18:50] LABS: Alanine Aminotransferase 35 U/L (0-40); Albumin Level 4.5 g/dL (3.5-5.0); Alkaline Phosphatase 86 U/L (39-117); Anion Gap 15 (12-20); Aspartate Amino Transferase 21 U/L (5-37); Bilirubin Total 0.4 mg/dL (0.0-1.0); Blood Urea Nitrogen 16 mg/dL (9-16); Calcium 10.1 mg/dL (8.4-10.2); Carbon Dioxide 27 mmol/L (22-29); Chloride 100 mmol/L (96-108); Estimated Glomerular Filt Rate > 60; Glucose Random 106 mg/dL (60-115); Iron 67 mcg/dL (45-160); Percent Iron Saturation 22 % (15-50); Sodium 139 mmol/L (135-145); Total Iron Binding Capacity 306 mcg/dL (228-428); Unsaturated Iron Binding 239 ug/dL
[2024-04-29 20:11] LABS: Potassium 2.8 mmol/L (3.3-5.1)
== END 2024-04-29 15:16 | disposition home or self-care (01) ==
LOC: HO.CHCLDS 15:15
PROVIDERS: Visit Provider Family Medicine
DX: R53.83 Other fatigue (principal)
CPT/HCPCS: 36415; 80053; 82306; 83540; 84443; 85025

== ENCOUNTER 2024-05-03 11:48 | Outpatient (REF) | payer MEDICAID, SELFPAY ==
[2024-05-03 13:45] LABS: Anion Gap 12 (12-20); Blood Urea Nitrogen 15 mg/dL (9-16); Calcium 10.4 mg/dL (8.4-10.2); Carbon Dioxide 26 mmol/L (22-29); Chloride 103 mmol/L (96-108); Cholesterol 263 mg/dL (<200); Estimated Glomerular Filt Rate > 60; Glucose Random 89 mg/dL (60-115); HDL Cholesterol 50 mg/dL (>40); LDL Cholesterol Calculated 174 mg/dL (<100); Magnesium 1.8 mg/dL (1.6-2.6); Potassium 3.4 mmol/L (3.3-5.1); Sodium 138 mmol/L (135-145); Triglycerides 196 mg/dL (<150)
[2024-05-03 13:55] LABS: TSH reflex Free T4 3.57 uIU/mL (0.32-4.0)
[2024-05-03 14:13] LABS: Folate 16.7 ng/mL (> or = 4.0); Vitamin B12 433 pg/mL (200-900)
== END 2024-05-03 11:49 | disposition home or self-care (01) ==
LOC: HO.HHCL 11:48
PROVIDERS: Family Medicine; Visit Provider Pediatrics
DX: E66.09 Other obesity due to excess calories (principal); I10 Essential (primary) hypertension; R20.0 Anesthesia of skin; R20.2 Paresthesia of skin
CPT/HCPCS: 36415; 80048; 80061; 82607; 82746; 83735; 84443

== ENCOUNTER 2024-06-28 15:39 | Outpatient (REF) | payer MEDICAID, SELFPAY ==
[2024-06-28 17:55] LABS: Anion Gap 14 (12-20); Blood Urea Nitrogen 20 mg/dL (9-16); Calcium 9.2 mg/dL (8.4-10.2); Carbon Dioxide 27 mmol/L (22-29); Chloride 104 mmol/L (96-108); Estimated Glomerular Filt Rate > 60; Glucose Random 84 mg/dL (60-115); Potassium 3.1 mmol/L (3.3-5.1); Sodium 142 mmol/L (135-145)
== END 2024-06-28 15:40 | disposition home or self-care (01) ==
LOC: HO.CHCLDS 15:39
PROVIDERS: Visit Provider Registered Nurse
DX: I10 Essential (primary) hypertension (principal)
CPT/HCPCS: 36415; 80048

== ENCOUNTER 2024-07-05 16:00 | Outpatient (REF) | payer MEDICAID, SELFPAY ==
--- NOTE | ~2024-07-05 | CT_ITS ---
EXAMINATION: CT HEAD WITHOUT CONTRAST CLINICAL INFORMATION: New onset pressure headaches behind right forehead. COMPARISON: None available. TECHNIQUE: Contiguous axial imaging was performed from the skull base to vertex without intravenous administration of contrast. This CT examination was performed using dose optimization techniques as appropriate, variously including the following: *Automated exposure control *Adjustment of mA and/or kV according to patient size (this includes techniques or standardized protocols for targeted exams where dose is matched to indication/reason for exam; i.e. extremities or head) *Use of iterative reconstruction technique DLP: 747 mGy-cm Exam submitted for review 09/06/2024 10:18 AM [facility]. FINDINGS: There is no evidence of intracranial hemorrhage or extra-axial fluid collection. There is no mass effect, or edema. No CT evidence of acute territorial infarct. Ventricles, sulci, and cisterns are normal in size and configuration for patient age. No hydrocephalus. No midline shift. Mildly prominent extra-axial spaces overlying the frontal convexities, nonspecific. No significant white matter abnormalities. Normal sella. Globes and orbital contents image normally. No extracranial soft tissue abnormalities. Paranasal sinuses demonstrate partial bilateral frontal sinus opacification, obstruction of both frontal recesses, left greater than right opacification of the anterior and posterior ethmoid air cells, and mild thickening in both sphenoid sinuses. Trace thickening in the maxillary sinuses which are incompletely imaged. Mastoids and tympanic cavities are normally aerated. No suspicious bony abnormalities. Moderate left and mild right TM joint degenerative change. CT/CT head/brain wo IV con IMPRESSION: 1. No acute intracranial pathology. 2. Bilateral frontal and ethmoid paranasal sinus disease, with lesser involvement of the sphenoid sinuses. Electronically signed by: Dewey Cabral MD 09/06/2024 11:18 AM [facility]
== END 2024-07-05 16:01 | disposition home or self-care (01) ==
LOC: HO.CT 16:00
PROVIDERS: PCP Registered Nurse; Visit Provider Registered Nurse
DX: R51.9 Headache, unspecified (principal)
CPT/HCPCS: 70450

== ENCOUNTER → 2024-07-05 16:02 | Outpatient (BNV) | payer MEDICAID, SELFPAY | PROVIDERS: PCP Registered Nurse; Visit Provider Radiology Diagnostic Radiology | DX: J01.10 Acute frontal sinusitis, unspecified (principal); J01.20 Acute ethmoidal sinusitis, unspecified | CPT/HCPCS: 70450 ==

== ENCOUNTER 2025-04-19 16:02 | Outpatient (REF) | payer OTHER, SELFPAY ==
--- OUTSIDE RECORDS SUMMARY | 2025-04-19 16:40 | XMS_ITS | Data Portability ---
Author Organization [facility], Allergy Address [address] [place] [phone] Care Team Providers Care Sql Architect Name Role Phone [facility] Primary Care Provider Assessment Encounter Date Assessment Date Assessment LastModified by Organization Details LastModified Time 08/10/2024 08/10/2024 1. Chronic sinusitis without nasal polyps 2. Inferior turbinate reduction Plan: I had a long discussion with the patient regarding the diagnosis of CRSsNP and the examination findings. We discussed that CRSsNP is caused by chronic inflammation of the nasal cavity and sinuses that may have several underlying triggers including environmental irritants, aberrant anatomy, allergies, and immunodeficiency. We discussed that the symptoms of this condition include nasal obstruction, discharge, pressure, headaches, recurrent infection and decreased sense of smell. The goals of care are to identify the cause of the inflammation and decrease the severity of inflammation, but this typically does not cure the underlying disease. This is best achieved by treating with topical nasal steroid medications to reduce swelling and inflammation. Oral antibiotics and oral steroids are occasionally used in the treatment of acute exacerbations superimposed on the chronic inflammation. If conservative medical therapy is unsuccessful then sometimes surgical treatment is helpful in reducing the frequency of infection and allowing better delivery of medications. -Fluticasone 1 spray both nostrils BID -Nasal saline irrigation BID -Plan for functional endoscopic sinus surgery with septoplasty and inferior turbinate reduction; septoplasty is required at this time due to the significant obstruction and for access during sinus surgery Not available 08/10/2024 22:14:27 09/23/2024 09/23/2024 Patient reports bleeding after FESS. Physical exam reveals dried blood with no evidence of current bleeding; reassurance provided. We reviewed the need to refrain from nose blowing. Sneeze with closed mouth. Avoid exertion. Use saline spray BID-QID and nasal steroid as directed. Follow up as scheduled. [email or web address] Not available 09/23/2024 14:24:39 10/06/2024 10/06/2024 The patient is doing well following functional endoscopic sinus surgery. Pathology was reviewed and is benign. Continue with saline sinus irrigation 2-3 times daily with intermittent use of saline nasal spray were given. He will follow up in 2 weeks as scheduled with Dr. Barnard for reevaluation. [email or web address] Not available 10/06/2024 15:22:03 10/14/2024 10/14/2024 1. Chronic Rhinosinusitis w/ nasal polyps 54yo gentleman with chronic rhinosinusitis with nasal polyps s/p FESS on 09/15/25 who presents for postoperative debridement. He previously completed debridement earlier this month. He reports using his sinonasal rinses daily. He reports overall improvement in his breathing and is satisfied with the results. Debridement performed today. Follow-up in 3 months for recheck Flonase irrigations 1-2x daily Not available 10/15/2024 07:28:38 Plan of Treatment Reminders Order Date Submit Date Provider Last Modified By Organization Details Last Modified Time Details Appointments Establish ed 30 2024 03:30P M FLETCHER POSEY MD Not available Not available Not available Lab None recorded. Referral None recorded. Procedures None recorded. Surgeries endoscopy , nasal/sin us, w/ maxillary antrostom y & tissue removal (SURG) 2023 024 [email or web address] Not available 08/12/2024 07:01:58 nasal/sin us endoscopy , surgical with ethmoidec kia, total, including sphenoido kia, with removal of tissue from the sphenoid sinus (SURG) 2023 024 [email or web address] Not available 08/12/2024 07:01:58 stereotac tic computer- assisted navigatio n (SURG) 2023 024 [email or web address] Not available 08/12/2024 07:01:58 endoscopy , nasal and sinus (SURG) 2023 024 [email or web address] Not available 08/12/2024 07:01:58 Imaging None recorded. Medication Orders Flonase Allergy Relief 50 mcg/actua tion nasal spray,chika pension 2024 025 [facility], [address] [place], [place], [phone], 10/14/2024 16:29:44 Flonase Allergy Relief 50 mcg/actua tion nasal spray,chika pension 2023 025 [facility], [address] [place], [place], [phone], 10/14/2024 16:14:40 Patient TargetsNo targets recorded. Patient InstructionsNo instructions recorded. Reason for Referral None Reported. Results Created Date Observation Date Name Description Value Unit Range Abnormal Flag Note LastModifiedBy Organization Detail LastModifiedTime Result Notes None recorded. Problems Name Problem SNOMED Code Status Onset Date Resolution Date Notes Provider Name and Address Organization Details Recorded Time Nasal congestion 92813592 Active 2023 ELICIA ARZOLA PA-C [address] [facility],[address] [address], [place], [address], [facility] - [facility] 4 15:22:39 Allergic rhinitis 79307851 Active 2023 ELICIA ARZOLA PA-C [address] [facility],[address], [place], [address], [facility] - [facility] 4 15:22:44 Posterior rhinorrhea 14747908 Active 2023 ELICIA ARZOLA PA-C [address] [facility], [place], [address], [facility] - [facility] 4 15:22:54 Chronic cough 42518644 Active 2023 ELICIA ARZOLA PA-C [address] [facility],[address], [place], [address], [facility] - [facility] 4 15:22:58 Hypertrophy of nasal turbinates 06689303 Active 2023 MARY GRACE BARNARD MD [address] [facility], [place], [address], [facility] - [facility] 4 22:14:48 Deviated nasal septum 497136409 Active 2023 MARY GRACE BARNARD MD [address] [facility],[address], [place], [address], [facility] - [facility] 4 22:14:53 Chronic rhinosinusitis with multiple nasal polyps Active 2023 MARY GRACE BARNARD MD [address] [facility], [place], [address], [facility] - [facility] 22:15:04 Postoperative hemorrhage 405667160 Active 2023 FLETCHER POSEY MD [address] [facility], [place], [address], [facility] - [facility] 16:14:43 Problem Notes None recorded. Procedures Surgical History Date Name Laterality Status Provider Name and Address Organization Details Recorded Time 10/14/19 25 JMSNasal/Sinus Endoscopy-DEBRID EMENT completed MARY GRACE BARNARD MD [address] [facility],[address], [address], [facility] - [facility] 10/15/2024 07:28:02 10/06/19 25 JMSNasal/Sinus Endoscopy-DEBRID EMENT completed ELICIA ARZOLA PA-C [address] [facility],[address], [address], [facility] - [facility] 10/06/2024 15:20:46 09/15/20 24 functional endoscopic sinus surgery completed MARY GRACE BARNARD MD [address] [place] [address],[address], [address], [facility] - [facility] 09/16/2024 16:35:27 09/15/20 24 reduction of nasal turbinate completed MARY GRACE BARNARD MD [address] [facility],[address], [address], [place] - [facility] 09/16/2024 16:35:23 08/10/20 24 JMSNasal/Sinus Endoscopy completed MARY GRACE BARNARD MD [address] [facility], [place], [address], [place] - [facility] 08/10/2024 22:09:52 05/26/20 24 Fiberoptic Laryngoscopy (Comprehensive) completed ELICIA ARZOLA PA-C [address] [facility], [place], [address], [place] - [facility] 05/26/2024 15:22:33 Imaging Results None recorded. Procedure Notes None recorded. Medical Equipment None Reported. Allergies No known drug allergies Medications Name Sig Start Date Stop Date Status Note LastModified by Organization Details LastModified Time blood pr monit omr [id number] Check blood pressure on arm as directed EVERY DAY 10/14 completed Not Available Not Available Not Available cyclobenzap rine 10 mg tablet 1 TABLET 3 TIMES A DAY NEEDED 10/14 completed Not Available Not Available Not Available buspirone 5 mg tablet TAKE ONE TABLET THREE TIMES DAILY NEEDED 10/14 completed Not Available Not Available Not Available Nasal York (oxymetazol ine) 0.05 % USE TWO SPRAYS IN EACH NOSTRIL NEEDED 10/14 completed Not Available Not Available Not Available acetaminoph en 325 mg tablet TAKE TWO TABLETS EVERY 4 TO 6 HOURS 10/14 completed Not Available Not Available Not Available trazodone 50 mg tablet TAKE ONE TABLET EVERY NIGHT AT BEDTIME 10/14 completed Not Available Not Available Not Available cetirizine 10 mg tablet TAKE ONE TABLET TWICE DAILY NEEDED FOR ITCHING 10/14 completed Not Available Not Available Not Available IBU 800 mg tablet TAKE ONE TABLET THREE TIMES DAILY NEEDED FOR PAIN 10/14 completed Not Available Not Available Not Available fluconazole 150 mg tablet TAKE ONE TABLET ONCE A WEEK 10/14 completed Not Available Not Available Not Available prazosin 1 mg capsule TAKE ONE CAPSULE EVERY NIGHT AT BEDTIME 10/14 completed Not Available Not Available Not Available meloxicam 15 mg tablet TAKE ONE TABLET DAILY WITH FOOD OR MILK 10/14 completed Not Available Not Available Not Available prednisone 20 mg tablet TAKE ONE TABLET EVERY MORNING FOR 5 DAYS 10/14 completed Not Available Not Available Not Available felodipine ER 5 mg tablet,exte nded release 24 hr TAKE ONE TABLET EVERY MORNING 10/14 completed Not Available Not Available Not Available sertraline 100 mg tablet TAKE ONE TABLET EVERY MORNING 10/14 completed Not Available Not Available Not Available pseudoephed rine ER 120 mg tablet,exte nded release TAKE ONE TABLET EVERY TWELVE HOURS DO NOT BREAK, CRUSH, DISSOLVE OR CHEW 10/14 completed Not Available Not Available Not Available triamcinolo ne acetonide 0.5 % topical ointment APPLY TO THE AFFECTED AREA(S) TWICE DAILY 10/14 completed Not Available Not Available Not Available chlorthalid one 25 mg tablet TAKE ONE TABLET DAILY active Not Available Not Available No t Available acetaminoph en 500 mg tablet TAKE ONE TO TWO TABLETS NEEDED FOR FEVER OR PAIN EVERY 6 HOURS 10/14 completed Not Available Not Available Not Available spironolact one 25 mg tablet TAKE ONE TABLET EVERY DAY 10/14 completed Not Available Not Available Not Available Deep Sea Nasal 0.65 % spray aerosol USE FOUR SPRAYS IN EACH NOSTRIL THREE TIMES DAILY FOR nasal bleeding 10/14 completed Not Available Not Available Not Available potassium chloride ER 20 mEq tablet,exte nded release(par t/cryst) TAKE ONE TABLET TWICE DAILY FOR TWO DAYS 10/14 completed Not Available Not Available Not Available amlodipine 10 mg tablet TAKE ONE TABLET DAILY active Not Available Not Available No t Available Banophen 25 mg tablet TAKE ONE TABLET AT BEDTIME NEEDED FOR ITCHING 10/14 completed Not Available Not Available Not Available Mag 64 64 mg tablet,pedrito yed release TAKE ONE TABLET AT BEDTIME 10/14 completed Not Available Not Available Not Available felodipine ER 10 mg tablet,exte nded release 24 hr TAKE ONE TABLET EVERY MORNING 10/14 completed Not Available Not Available Not Available zolpidem 10 mg tablet TAKE ONE TABLET AT BEDTIME NEEDED FOR SLEEP 10/14 completed Not Available Not Available Not Available losartan 100 mg tablet TAKE ONE TABLET EVERY MORNING 10/14 completed Not Available Not Available Not Available clotrimazol e 1 % topical cream APPLY TO THE AFFECTED AREA(S) TWICE DAILY 10/14 completed Not Available Not Available Not Available sertraline 50 mg tablet TAKE ONE TABLET EVERY MORNING 10/14 completed Not Available Not Available Not Available folic acid 800 mcg tablet TAKE ONE TABLET DAILY active Not Available Not Available No t Available prazosin 2 mg capsule TAKE ONE CAPSULE EVERY NIGHT AT BEDTIME 10/14 completed Not Available Not Available Not Available spironolact one 50 mg tablet TAKE ONE TABLET EVERY MORNING 10/14 completed Not Available Not Available Not Available amoxicillin 875 mg-potassiu m clavulanate 125 mg tablet TAKE 1 TABLET BY MOUTH TWICE DAILY. 10/14 completed Not Available Not Available Not Available Thalitone 15 mg tablet TAKE ONE TABLET EVERY MORNING 10/14 completed Not Available Not Available Not Available oxycodone 5 mg tablet TAKE ONE TABLET EVERY 4 HOURS 10/14 completed Not Available Not Available Not Available aripiprazol e 10 mg tablet TAKE ONE TABLET AT BEDTIME 10/14 completed Not Available Not Available Not Available aripiprazol e 15 mg tablet TAKE ONE TABLET BY MOUTH AT BEDTIME 10/14 completed Not Available Not Available Not Available rosuvastati n 40 mg tablet TAKE ONE TABLET EVERY MORNING active Not Available Not Available No t Available quetiapine 50 mg tablet TAKE 1/2 TABLET EVERY NIGHT AT BEDTIME 10/14 completed Not Available Not Available Not Available amlodipine 10 mg-valsarta n 320 mg tablet TAKE ONE TABLET DAILY 10/14 completed Not Available Not Available Not Available Chest Congestion Relief 100 mg/5 mL oral liquid TAKE 10 ML BY MOUTH THREE TIMES DAILY IN THE MORNING, AT NOON, AND AT BEDTIME NEEDED FOR COUGH 10/14 completed Not Available Not Available Not Available cholecalcif allyson (vitamin D3) 50 mcg (2,000 unit) tablet TAKE ONE TABLET DAILY 10/14 completed Not Available Not Available Not Available blood pressure test kit-large cuff Check blood pressure on arm as directed IN THE MORNING 10/14 completed Not Available Not Available Not Available Flonase Allergy Relief 50 mcg/actuati on nasal spray,suspe nsion York 2 sprays every day by intranasa l route for 30 days. 2024 active Not Available Not Available Not Avai lable Tylenol 325 mg capsule Take 650 mg every 4-6 hours by oral route. 10/14 completed Not Available Not Available Not Available Wegovy 2.4 mg/0.75 mL subcutaneou s pen injector Inject 2.4 mg under the skin 1 (one) time per week. active Not Available Not Available No t Available Wegovy 1.7 mg/0.75 mL subcutaneou s pen injector Inject 1.7 mg under the skin 1 (one) time per week. 10/14 completed Not Available Not Available Not Available Wegovy 1 mg/0.5 mL subcutaneou s pen injector Inject 1 mg under the skin 1 (one) time per week. 10/14 completed Not Available Not Available Not Available Wegovy 0.25 mg/0.5 mL subcutaneou s pen injector INJECT 0.25 MG'S SUBCUTANE OUSLY ONCE PER WEEK 10/14 completed Not Available Not Available Not Available Wegovy 0.5 mg/0.5 mL subcutaneou s pen injector Inject 0.5 mg SUBCUTANE OUSLY ONCE A WEEK 10/14 completed Not Available Not Available Not Available Zepbound 5 mg/0.5 mL subcutaneou s pen injector INJECT FIVE MG SUBCUTANE OUSLY ONCE A WEEK active Not Available Not Available No t Available Vitals Date Recorded Body height Provider Name an d Address Organization Details Last Updated DateTime 10/06/2024 172.72 cm Dannie Swann [facility] 10/06/2024 14:27:57 Date Recorded Body height Body mass index (BMI) Body weight Provider Name and Address Organization Details Last Updated DateTime 10/14/2024 172.72 cm 31.8 kg/m2 08698.81 g April Conde [facility] 10/14/2024 15:58:29 Date Recorded Body height Body mass index (BMI) Body weight Provider Name and Address Organization Details Last Updated DateTime 08/10/2024 172.72 cm 34.7 kg/m2 733002.06 g Columba Bradford [facility] 08/10/2024 15:26:36 Social History None recorded. Functional Status None recorded. Mental Status None recorded. Family History Nothing Reported. Medical History No medical history recorded. Past Encounters Encounter ID Performer Location Encounter Start Date Encounter Closed Date Diagnosis/Indication Diagnosis SNOMED-CT Code Diagnosis ICD10 Code Diagnosis Note [id number] ELICIA ARZOLA PA-C [facility] [address] [address] 05/26/2024 14:14:57 05/26/2024 15:51:43 Nasal congestion 52718516 R09.81 Allergic rhinitis 080469 04 J30.89 Posterior rhinorrhea 758 32463 R09.82 Chronic cough 91284499 R 05.3 [id number] MARY GRACE BARNARD MD [facility] [address] [address] 08/10/2024 14:57:09 08/10/2024 16:27:20 Chronic rhinosinusitis with multiple nasal polyps 4084800026 J32.4 Hypertroph y of nasal turbinates 62582140 J34.3 Deviated nasal septum 12 2094960 J34.2 [id number] MARY GRACE BARNARD MD [facility] [address] [address] 09/16/2024 16:39:59 09/16/2024 17:04:19 Chronic rhinosinusitis with multiple nasal polyps 4174241766 J32.4 [id number] MIMI MCKEON PA-C [facility] [address] [address] 09/23/2024 13:32:12 09/23/2024 14:49:59 Chronic rhinosinusitis with multiple nasal polyps 1197602116 J32.4 Postoperat adriana hemorrhage 600739987 J95.830 [id number] ELICIA RAZOLA PA-C [facility] [address] [address] 10/06/2024 14:20:30 10/06/2024 15:01:54 Chronic rhinosinusitis with multiple nasal polyps 0876798961 J32.4 [id number] MARY GRACE BARNARD MD [facility] [address] [address] 10/14/2024 15:50:58 10/14/2024 16:13:58 Chronic rhinosinusitis with multiple nasal polyps 4029355408 J32.4 Health Concerns Section Related Observation LastModified by Organization Isa ls LastModified Time None Recorded Concern Status LastModified by Organization Details LastModified Time None Recorded Advance Directives Directive None Recorded Payers Insurance Date Sequence Insurance Name Policy Number Policy Walters Covered Member ID Walters Member ID Guarantor Name 05/26/2024 1 [place] Clemente Medianero [id number] Clemente Medianero 10/13/2024 1 [place] [facility] Clemente Tanner Medianero [id number] Clemente Medianero Notes Date Note Type Note Provider Name and Address Organization Details Recorded Time 08/10/2024 text/html 54-year-old male presents for evaluation of chronic cough and postnasal drip. Symptoms have been present for the past few years. Also notes nasal congestion bilaterally. He denies history of tobacco use. Reports history of seasonal allergies and recently underwent allergy testing, but is unsure of the results. He has not been treated with any nasal sprays or antihistamines. He denies history of sinusitis. He reports history of surgery in [place] to align the cartilage in his nose (unclear if rhinoplasty or septoplasty). He reports history of nasal trauma as a child. History of acid reflux and takes antacids prescribed by his PCP (unsure of medication name). Denies breakthrough acid reflux. He continues to have nasal congestion, nasal pressure, drainage, hyposmia. CT sinuses from 06/2024 was reviewed and interpreted independently today, which shows obstruction of bilateral maxillary sinuses with ethmoid opactification and right septal deviation. MARY GRACE BARNARD MD [address] [place] [address], [phone], [facility] - [facility] 08/10/2024 22:17:09 09/23/2024 text/html 54 year old male worked in [employer] [facility] [employer] for post-operative bleeding. Underwent FESS with polypectomy 09/[address] Barnard. States he has been very congested and has been blowing his nose. He had some bleeding from both nostrils, most recently last night. He has not been using nasal sprays. Also states left ear feels blocked. FLETCHER MADDOX MD [address] [facility],[address] [address], [place], [address], [place] - [facility] 09/23/2024 16:14:59 10/06/2024 text/html 54 year old male presents s/p bilateral FESS with polypectomy on 09/16/[address] Barnard. He is doing well postoperatively. Using saline rinses. Nasal congestion and rhinitis are improved. No further epistaxis. GILDARDO JIMENEZ MD [address] [facility],[address] [address], [place], [address], [facility] - [facility] 10/06/2024 16:31:29 10/14/2024 text/html 54yo gentleman w ith chronic rhinosinusitis with nasal polyps s/p FESS on 09/15/25 who presents for postoperative debridement. He previously completed debridement earlier this month.He reports using his sinonasal rinses daily.He reports overall improvement in his breathing and is satisfied with the results. MARY GRACE BARNARD MD [address] [facility],[address] [address], [place], [address], [facility] - [facility] 10/15/2024 07:29:03
--- OUTSIDE RECORDS SUMMARY | 2025-04-19 16:40 | XMS_ITS | Encounter Summary ---
Author Organization [employer] Address [address] [place] [address] [place] [address] Care Team Providers Care Building Equipment Inspector Name Role Phone Ave Gan MD Primary Care Provider [phone] Reason for Visit * Reason Onset Date Comments Medication Question 10/26/2024 Encounter Details Date Type Department Care Team ([facility] st Contact Info) Description 10/26/2024 Telephone [facility] MED[facility]INE [address] [place] [address] Ave Gan MD [address] [place] [address] Medication Question Social History Tobacco Use Types Packs/Day Years Used Date Smoking Tobacco: Never Passive Smoke Exposure: Never Smokeless Tobacco: Never Alcohol Answer Date Recorded Frequency of Alcohol Consumption Not on file 07/26/2024 Average Number of Drinks Not on file 024 Frequency of Binge Drinking Not on file 06/30 Score 0 07/26/2024 Depression Answer Date Recorded Patient Health Questionnaire-9 Score 23 11/10/2023 Patient Health Questionnaire-9 Score 23 11/10/2023 Last PHQ-9: Questionnaire Data Not on file 0 11/10/2023 Housing Stability Answer Date Recorded What is your housing situation today? I have renetta vargas 11/03/[address] you li ve. Do you have problems with any of the following? None of the above 11/03/2023 Food Insecurity Answer Date Recorded Within the past 12 months, y ou worried that your food would run out before you got money to buy more: Never True 11/03/2023 Within the past 12 months,th e food you bought just didn't last and you didn't have enough money to get more: Never True 01/2024 Transportation Answer Date Recorded In the past 12 months, has l ack of transportation kept you from medical appts, meetings, work or from getting things needed for daily living? No 11/03/2023 Utilities Answer Date Recorded In the past 12 months, has t he electric, gas, oil or water company threatened to shut off services in your home? No 11/03/2023 Depression Answer Date Recorded Patient Health Questionnaire-2 Score 6 11/10/2023 Sex and Gender Information Value Date Recorded Sex Assigned at Male 07/29/2022 10:21 AM EDT Legal Sex Male 10:21 AM EDT Gender Identity Male 07/29/2022 10:21 AM EDT Sexual Orientation Straight 07/29/2022 10 :21 AM EDT documented as of this encounter Miscellaneous Notes * Telephone Encounter - Lise Summers - 10/27/2024 2:05 PM EST Tc from pt requesting an urgent call back regarding status on his medications. * Telephone Encounter - Garima Allison - 10/26/2024 1:28 PM EST TC from pt calling stated that had received medication chlorthalidone (Hygroton) 25 MG tablet But pt is taking a full tab and script was sent for 1/2 tab. But pt is asking why 1/2 tab ? * Telephone Encounter - Jennifer Patton RN - 10/26/2024 11:23 AM EST TC to patient. He states he has been taking the whole 25 mg of chlorthalidon instead 12.5 mg. Patient states he is going to continue to take the 25 mg, because it works for me. Patient is asymptomatic for hypotension. He is going on vacation for 4 weeks, so he will need an increase in the amount of pills prescribed as well. Routing to covering provider fro review and advise. * Telephone Encounter - Naeem Nuñez - 10/26/2024 9:27 AM EST Tc from pt stating that he wanted to speak with a nurse about his medication chlorthalidone (Hygroton) 25 MG tablet. Pt states that he is taking the whole pill instead of the half that is on the instructions. documented in this encounter Plan of Treatment Upcoming Encounters Date Type Department Care Team (Late st Contact Info) Description 05/19/2025 3:30 PM EDT Office Visit [facility] [address] [place] [address] Ave Gan MD [address] [place] [address] documented as of this encounter Visit Diagnoses Not on filedocumented in this encounter Additional Health Concerns Assessment Noted Time PHQ-9 Depression Total Score: 23 024 1:42 PM EST documented as of this encounter Care Teams Building Equipment Inspector Relationship Specialty Start Date End Date Ave Gan MD [address] [place] [address] PCP - General Family Medicine 05/30/21 documented as of this encounter
[2025-04-19 18:05] LABS: MANUAL DIFF FLAG NO
[2025-04-19 18:16] LABS: Hematocrit 39.2 % (42.0-52.0); Hemoglobin 13.0 g/dl (14.0-18.0); Imm Gran Abs Auto 0.03 X10*3/uL (0.00-0.03); Imm Gran Pct Auto 0.4 % (0.0-0.4); Lymphocytes Absolute Auto 1.9 X10*3/uL (1.2-4.9); Mean Corpuscular HGB Conc 33.2 g/dl (31.0-36.0); Mean Corpuscular Hemoglobin 26.7 pg (27.0-33.0); Mean Corpuscular Volume 80.7 fL (80.0-98.0); NRBC Abs Auto 0.000 X10*3/uL (0.0-0.012); NRBC Pct Auto 0.0 /100WBC (0.0-0.2); Platelet Count 334 X10*3/uL (160-400); Red Blood Count 4.86 X10*6/uL (4.60-5.80); White Blood Count 8.0 X10*3/uL (4.8-10.8)
[2025-04-19 18:45] LABS: Alanine Aminotransferase 14 U/L (0-40); Albumin Level 4.3 g/dL (3.5-5.0); Alkaline Phosphatase 89 U/L (39-117); Anion Gap 14 (12-20); Aspartate Amino Transferase 31 U/L (5-37); Blood Urea Nitrogen 21 mg/dL (9-16); Calcium 8.6 mg/dL (8.4-10.2); Carbon Dioxide 26 mmol/L (22-29); Chloride 103 mmol/L (96-108); Estimated Glomerular Filt Rate > 60; Iron 53 mcg/dL (45-160); Magnesium 1.9 mg/dL (1.6-2.6); Percent Iron Saturation 19 % (15-50); Sodium 140 mmol/L (135-145); Total Iron Binding Capacity 281 mcg/dL (228-428); Total Protein 7.1 g/dL (6.5-8.0); Unsaturated Iron Binding 228 ug/dL
[2025-04-19 18:54] LABS: Potassium 2.6 mmol/L (3.3-5.1)
[2025-04-19 18:56] LABS: Ferritin 183 ng/mL (20-250)
[2025-04-19 19:07] LABS: Folate 5.2 ng/mL (> or = 4.0); Vitamin B12 339 pg/mL (200-900)
== END 2025-04-19 16:03 | disposition home or self-care (01) ==
LOC: HO.CHCLDS 16:02
PROVIDERS: Visit Provider Family Medicine
DX: E66.811 Obesity, class 1 (principal); Z68.33 Body mass index [BMI] 33.0-33.9, adult
CPT/HCPCS: 36415; 80053; 82607; 82728; 82746; 83540; 83735; 85025

== ENCOUNTER 2025-04-22 15:40 | Outpatient (REF) | payer SELFPAY ==
--- OUTSIDE RECORDS SUMMARY | 2025-04-22 15:43 | XMS_ITS | Data Portability ---
Author Organization [facility], [facility] Address [address] [place] [address] Care Team Providers Care Bond Trader Name Role Phone [facility] Primary Care Provider Assessment Encounter Date Assessment [...] as scheduled with Dr. Barnard for reevaluation. [email or web address] Not available 10/06/2024 15:22:03 10/14/2024 10/14/2024 1. [...] mcg/actua tion nasal spray,chika pension 2024 025 [facility], [address] [place], [place], [phone], 10/14/2024 16:29:44 Flonase Allergy Relief 50 mcg/actua tion nasal spray,chika pension 2023 025 [facility], [address] [place], [place], [phone], 10/14/2024 16:14:40 Patient TargetsNo targets recorded. Patient InstructionsNo instructions recorded. Reason for Referral None Reported. Results Created Date Observation Date Name Description Value Unit Range Abnormal Flag Note LastModifiedBy Organization Detail LastModifiedTime Result Notes None recorded. Problems Name Problem SNOMED Code Status Onset Date Resolution Date Notes Provider Name and Address Organization Details Recorded Time Nasal congestion 94214744 Active 2023 ELICIA ARZOLA PA-C [address] [facility],[place] [address], [place], [address], [facility] - [facility] 4 15:22:39 Allergic rhinitis 22668112 Active 2023 ELICIA ARZOLA PA-C [address] [facility],[address], [place], [address], [facility] - [facility] 4 15:22:44 Posterior rhinorrhea 46786491 Active 2023 ELICIA ARZOLA PA-C [address] [facility], [place], [address], [facility] - [facility] 4 15:22:54 Chronic cough 68735846 Active 2023 ELICIA RAZOLA PA-C [address] [facility],[address], [place], [address], [facility] - [facility] [place] 4 15:22:58 Hypertrophy of nasal turbinates 29664579 Active 2023 MARY GRACE BARNARD MD [address] [facility] [place], [place], [address], [facility] - [facility] [place] 4 22:14:48 Deviated nasal septum 934252336 Active 2023 MARY GRACE BARNARD MD [address] [facility] [place],[address], [place], [address], [facility] - [facility] [place] 4 22:14:53 Chronic rhinosinusitis with multiple nasal polyps Active 2023 MARY GRACE BARNARD MD [address] [facility], [address], [place], [address], [facility] - [facility] [place] 22:15:04 Postoperative hemorrhage 918081934 Active 2023 FLETCHER POSEY MD [address] [facility], [place], [address], [facility] - [facility] [place] 16:14:43 Problem Notes None recorded. Procedures Surgical History Date Name Laterality Status Provider Name and Address Organization Details Recorded Time 10/14/19 25 JMSNasal/Sinus Endoscopy-DEBRID EMENT completed MARY GRACE BARNARD MD [address] [facility],[address], [address], [facility] - [facility] 10/15/2024 07:28:02 10/06/19 25 JMSNasal/Sinus Endoscopy-DEBRID EMENT completed ELICIA ARZOLA PA-C [address] [facility],[address], [address], [facility] - [facility] 10/06/2024 15:20:46 09/15/20 24 functional endoscopic sinus surgery completed MARY GRACE BARNARD MD [address] [place] [address],[address], [address], [facility] - [facility] 09/16/2024 16:35:27 09/15/20 24 reduction of nasal turbinate completed MARY GRACE BARNARD MD [address] [facility],[address], [address], [place] - [facility] [place] 09/16/2024 16:35:23 08/10/20 24 JMSNasal/Sinus Endoscopy completed MARY GRACE BARNARD MD [address] [facility],[address], [place], [address], [place] [facility] 08/10/2024 22:09:52 05/26/20 24 Fiberoptic Laryngoscopy (Comprehensive) completed ELICIA ARZOLA PA-C [address] [facility],[address], [place], [address], [place] [facility] 05/26/2024 15:22:33 Imaging Results None recorded. Procedure Notes None recorded. Medical Equipment None Reported. Allergies No known drug allergies Medications Name Sig Start Date Stop Date Status Note LastModified by Organization Details LastModified Time blood pr monit omr [id number] Check blood pressure on arm as directed EVERY DAY 10/14 completed Not Available Not Available Not Available cyclobenzap rine 10 mg tablet 1 TABLET 3 TIMES A DAY NEEDED 10/14 completed Not Available Not Available Not Available buspirone 5 mg tablet TAKE ONE TABLET THREE TIMES DAILY NEEDED 10/14 completed Not Available Not Available Not Available Nasal [place] (oxymetazol ine) 0.05 % USE TWO SPRAYS [...] Relief 50 mcg/actuati on nasal spray,suspe nsion [place] 2 sprays every day by intranasa l [...] Updated DateTime 10/06/2024 172.72 cm Dannie Swann [facility] 10/06/2024 14:27:57 Date Recorded Body height Body mass index (BMI) Body weight Provider Name and Address Organization Details Last Updated DateTime 10/14/2024 172.72 cm 31.8 kg/m2 57574.81 g April Conde [facility] 10/14/2024 15:58:29 Date Recorded Body height Body mass index (BMI) Body weight Provider Name and Address Organization Details Last Updated DateTime 08/10/2024 172.72 cm 34.7 kg/m2 501586.06 g Columba Bradford [facility] 08/10/2024 15:26:36 Social History None recorded. Functional Status None recorded. Mental Status None recorded. Family History Nothing Reported. Medical History No medical history recorded. Past Encounters Encounter ID Performer Location Encounter Start Date Encounter Closed Date Diagnosis/Indication Diagnosis SNOMED-CT Code Diagnosis ICD10 Code Diagnosis Note [id number] ELICIA ARZOLA PA-C [facility] [address] [address] 05/26/2024 14:14:57 05/26/2024 15:51:43 Nasal congestion 04148157 R09.81 Allergic rhinitis 640136 04 J30.89 Posterior rhinorrhea 758 47077 R09.82 Chronic cough 98918233 R 05.3 [id number] MARY GRACE BARNARD MD [facility] [address] [address] 08/10/2024 14:57:09 08/10/2024 16:27:20 Chronic rhinosinusitis with multiple nasal polyps 6086419529 J32.4 Hypertroph y of nasal turbinates 46627774 J34.3 Deviated nasal septum 12 7949301 J34.2 [id number] MARY GRACE BARNARD MD [facility] [address] [address] 09/16/2024 16:39:59 09/16/2024 17:04:19 Chronic rhinosinusitis with multiple nasal polyps 5701051911 J32.4 [id number] MIMI MCKEON PA-C [facility] [address] [address] 09/23/2024 13:32:12 09/23/2024 14:49:59 Chronic rhinosinusitis with multiple nasal polyps 3059696288 J32.4 Postoperat adriana hemorrhage 466638297 J95.830 [id number] ELICIA ARZOLA PA-C [facility] [address] [address] 10/06/2024 14:20:30 10/06/2024 15:01:54 Chronic rhinosinusitis with multiple nasal polyps 7950194167 J32.4 [id number] MARY GRACE BARNARD MD [facility] [address] [address] 10/14/2024 15:50:58 10/14/2024 16:13:58 Chronic rhinosinusitis with multiple nasal polyps 8143228368 J32.4 Health Concerns Section Related Observation LastModified by Organization Detai ls LastModified Time None Recorded Concern Status LastModified by Organization Details LastModified Time None Recorded Advance Directives Directive None Recorded Payers Insurance Date Sequence Insurance Name Policy Number Policy Walters Covered Member ID Walters Member ID Guarantor Name 05/26/2024 1 [id number] Clemente Medianero [id number] Clemente Medianero 10/13/2024 1 [place] [facility] Clemente Tanner Medianero [id number] Clemente Medianero Notes Date Note Type Note Provider Name and Address Organization Details Recorded Time 08/10/2024 text/html ROS as noted in the HPI 54-year-old male presents for evaluation of chronic [...] sinusitis. He reports history of surgery in [place] to align the cartilage in his nose [...] right septal deviation. MARY GRACE BARNARD MD [address] [place] [address], [address], [facility] 08/10/2024 22:17:09 09/23/2024 text/html ROS as noted in the HPI 54 year old male worked in [place] for post-operative bleeding. Underwent FESS with polypectomy 09/[address] Barnard. States he has been very congested and has been blowing his nose. He had some bleeding from both nostrils, most recently last night. He has not been using nasal sprays. Also states left ear feels blocked. FLETCHER MADDOX MD [address] [facility],[place] [address], [place], [address], [facility] 09/23/2024 16:14:59 10/06/2024 text/html ROS as noted in the [facility] 54 year old male presents s/p bilateral FESS with polypectomy on 09/16/[address] Barnard. He is doing well postoperatively. Using saline rinses. Nasal congestion and rhinitis are improved. No further epistaxis. GILDARDO JIMENEZ MD [address] [facility],[address], [place], [address], [facility] 10/06/2024 16:31:29 10/14/2024 text/html ROS as noted in the [facility] 54yo gentleman with chronic rhinosinusitis with nasal polyps s/p FESS on 09/15/25 who presents for postoperative debridement. He previously completed debridement earlier this month.He reports using his sinonasal rinses daily.He reports overall improvement in his breathing and is satisfied with the results. MARY GRACE BARNARD MD [address] [facility] [place],[address], [place], [address], [facility] 10/15/2024 07:29:03
--- OUTSIDE RECORDS SUMMARY | 2025-04-22 15:43 | XMS_ITS | Encounter Summary ---
Author Organization [employer] Address [address] [place] [address] [place] [address] Care Team Providers Care Paint Roller Covers Supervisor Name Role Phone Ave Gan MD Primary Care Provider [phone] Reason for Visit * Reason Onset Date Comments Medication Question 10/26/2024 Encounter Details Date Type Department Care Team ([facility] st Contact Info) Description 10/26/2024 Telephone [facility] MEDICINE [address] [place] [address] Ave Gan MD [address] [place] [address] Medication Question Social History Tobacco Use Types [...] 05/19/2025 3:30 PM EDT Office Visit [facility] [address] [place] [address] Ave Gan MD [address] [place] [address] documented as of this encounter Visit Diagnoses Not on filedocumented in this encounter Additional Health Concerns Assessment Noted Time PHQ-9 Depression Total Score: 23 024 1:42 PM EST documented as of this encounter Care Teams Paint Roller Covers Supervisor Relationship Specialty Start Date End Date Ave Gan MD [address] [place] [address] PCP - General Family Medicine 05/30/21 documented as of this encounter
[2025-04-22 18:21] LABS: Anion Gap 13 (12-20); Blood Urea Nitrogen 17 mg/dL (9-16); Calcium 8.8 mg/dL (8.4-10.2); Carbon Dioxide 28 mmol/L (22-29); Chloride 101 mmol/L (96-108); Estimated Glomerular Filt Rate > 60; Sodium 139 mmol/L (135-145)
[2025-04-22 18:24] LABS: Potassium 2.7 mmol/L (3.3-5.1)
== END 2025-04-22 15:41 | disposition home or self-care (01) ==
LOC: HO.LAB 15:40
PROVIDERS: PCP Family Medicine; Visit Provider Pediatrics
DX: E66.811 Obesity, class 1 (principal); Z68.33 Body mass index [BMI] 33.0-33.9, adult; E66.09 Other obesity due to excess calories
CPT/HCPCS: 36415; 80048

== ENCOUNTER 2025-04-25 16:28 | Outpatient (REF) | payer SELFPAY ==
--- OUTSIDE RECORDS SUMMARY | 2025-04-25 16:31 | XMS_ITS | Data Portability ---
Author Organization [facility], Allergy Address [address] [place] [address] Care Team Providers Care Center Hole Reamer Name Role Phone [facility] Primary Care Provider Assessment Encounter Date Assessment [...] as scheduled with Dr. Barnard for reevaluation. [email or web address] Not available 10/06/2024 15:22:03 10/14/2024 10/14/2024 1. [...] mcg/actua tion nasal spray,chika pension 2024 025 [facility], [address] [place], [place], [id number], 10/14/2024 16:29:44 Flonase Allergy Relief 50 mcg/actua tion nasal spray,chkia pension 2023 025 [facility], [address] [place], [place], [id number], 10/14/2024 16:14:40 Patient TargetsNo targets recorded. Patient InstructionsNo instructions recorded. Reason for Referral None Reported. Results Created Date Observation Date Name Description Value Unit Range Abnormal Flag Note LastModifiedBy Organization Detail LastModifiedTime Result Notes None recorded. Problems Name Problem SNOMED Code Status Onset Date Resolution Date Notes Provider Name and Address Organization Details Recorded Time Nasal congestion 62648504 Active 2023 ELICIA ARZOLA PA-C [address] [facility],[address] [place] [address], [place], [address], [facility] - [facility] 4 15:22:39 Allergic rhinitis 94960978 Active 2023 ELICIA ARZOLA PA-C [address] [facility],[address], [place], [address], [facility] - [facility] 4 15:22:44 Posterior rhinorrhea 53518134 Active 2023 ELICIA ARZOLA PA-C [address] [facility], [place], [address], [facility] - [facility] 4 15:22:54 Chronic cough 27029200 Active 2023 ELICIA ARZOLA PA-C [address] [facility],[address], [place], [address], [facility] [place] 4 15:22:58 Hypertrophy of nasal turbinates 61885745 Active 2023 MARY GRACE BARNARD MD [address] [facility] [address], [facility] [place], [address], [facility] [place] 4 22:14:48 Deviated nasal septum 194277492 Active 2023 MARY GRACE BARNARD MD [address] [facility] [address], [facility] [place], [address], [facility] [place] 4 22:14:53 Chronic rhinosinusitis with multiple nasal polyps Active 2023 MARY GRACE BARNARD MD [address] [facility], [address], [facility] [place], [address], [facility] [place] 22:15:04 Postoperative hemorrhage 080042720 Active 2023 FLETCHER POSEY MD [address] [facility], [address], [facility] [place], [address], [facility] [place] 16:14:43 Problem Notes None recorded. Procedures Surgical History Date Name Laterality Status Provider Name and Address Organization Details Recorded Time 10/14/19 25 JMSNasal/Sinus Endoscopy-DEBRID EMENT completed MARY GRACE BARNARD MD [address] [facility],[address], [address], [facility] - [facility] 10/15/2024 07:28:02 10/06/19 25 JMSNasal/Sinus Endoscopy-DEBRID EMENT completed ELICIA ARZOLA PA-C [address] [facility],[address], [address], [facility] - [facility] 10/06/2024 15:20:46 09/15/20 24 functional endoscopic sinus surgery completed MARY GRACE BARNARD MD [address] [place] [address],[address], [address], [facility] - [facility] 09/16/2024 16:35:27 09/15/20 24 reduction of nasal turbinate completed MARY GRACE BARNARD MD [address] [facility],[address], [address], [place] [facility] [place] 09/16/2024 16:35:23 08/10/20 24 JMSNasal/Sinus Endoscopy completed MARY GRACE BARNARD MD [address] [facility] [address], [place], [address], [place] [facility] 08/10/2024 22:09:52 05/26/20 24 Fiberoptic Laryngoscopy (Comprehensive) completed ELICIA ARZOLA PA-C [address] [facility] [address], [place], [address], [place] [facility] 05/26/2024 15:22:33 Imaging Results None recorded. Procedure Notes None recorded. Medical Equipment None Reported. Allergies No known drug allergies Medications Name Sig Start Date Stop Date Status Note LastModified by Organization Details LastModified Time blood pr monit omr [id number] Check blood pressure on arm as directed EVERY DAY 10/14 completed Not Available Not Available Not Available cyclobenzap rine 10 mg tablet 1 TABLET 3 TIMES A DAY NEEDED 10/14 completed Not Available Not Available Not Available buspirone 5 mg tablet TAKE ONE TABLET THREE TIMES DAILY NEEDED 10/14 completed Not Available Not Available Not Available Nasal Jewett (oxymetazol ine) 0.05 % USE TWO SPRAYS [...] Relief 50 mcg/actuati on nasal spray,suspe nsion Jewett 2 sprays every day by intranasa l [...] Updated DateTime 10/06/2024 172.72 cm Dannie Swann [facility] 10/06/2024 14:27:57 Date Recorded Body height Body mass index (BMI) Body weight Provider Name and Address Organization Details Last Updated DateTime 10/14/2024 172.72 cm 31.8 kg/m2 25987.81 g April Conde [facility] 10/14/2024 15:58:29 Date Recorded Body height Body mass index (BMI) Body weight Provider Name and Address Organization Details Last Updated DateTime 08/10/2024 172.72 cm 34.7 kg/m2 807462.06 g Columba Bradford [facility] 08/10/2024 15:26:36 Social History None recorded. Functional Status None recorded. Mental Status None recorded. Family History Nothing Reported. Medical History No medical history recorded. Past Encounters Encounter ID Performer Location Encounter Start Date Encounter Closed Date Diagnosis/Indication Diagnosis SNOMED-CT Code Diagnosis ICD10 Code Diagnosis Note [id number] ELICIA ARZOLA PA-C [facility] [address] [address] 05/26/2024 14:14:57 05/26/2024 15:51:43 Nasal congestion 87294546 R09.81 Allergic rhinitis 482071 04 J30.89 Posterior rhinorrhea 758 68235 R09.82 Chronic cough 59610477 R 05.3 [id number] MARY GRACE BARNARD MD [facility] [address] [address] 08/10/2024 14:57:09 08/10/2024 16:27:20 Chronic rhinosinusitis with multiple nasal polyps 6459338137 J32.4 Hypertroph y of nasal turbinates 48076591 J34.3 Deviated nasal septum 12 9738899 J34.2 [id number] MARY GRACE BARNARD MD [facility] [address] [address] 09/16/2024 16:39:59 09/16/2024 17:04:19 Chronic rhinosinusitis with multiple nasal polyps 2807496247 J32.4 [id number] MIMI MCKEON PA-C [facility] [address] [address] 09/23/2024 13:32:12 09/23/2024 14:49:59 Chronic rhinosinusitis with multiple nasal polyps 0205821414 J32.4 Postoperat adriana hemorrhage 016882233 J95.830 [id number] ELICIA ARZOLA PA-C [facility] [address] [address] 10/06/2024 14:20:30 10/06/2024 15:01:54 Chronic rhinosinusitis with multiple nasal polyps 4516350611 J32.4 [id number] MARY GRACE BARNARD MD [facility] [address] [address] 10/14/2024 15:50:58 10/14/2024 16:13:58 Chronic rhinosinusitis with multiple nasal polyps 5853246587 J32.4 Health Concerns Section Related Observation LastModified by Organization Detai ls LastModified Time None Recorded Concern Status LastModified by Organization Details LastModified Time None Recorded Advance Directives Directive None Recorded Payers Insurance Date Sequence Insurance Name Policy Number Policy Walters Covered Member ID Walters Member ID Guarantor Name 05/26/2024 1 [employer] Clemente Medianero [id number] Clemente Zepeda 10/13/2024 1 [place] [facility] Clemente Tanner Medianero [id number] Clemente [facility]
--- OUTSIDE RECORDS SUMMARY | 2025-04-25 16:31 | XMS_ITS | Encounter Summary ---
Author Organization [employer] Address [address] [place] [address] [place] [address] Care Team Providers Care Leveling Machine Operator Name Role Phone Ave Gan MD Primary Care Provider [phone] Reason for Visit * Reason Onset Date Comments Medication Question 10/26/2024 Encounter Details Date Type Department Care Team ([facility] st Contact Info) Description 10/26/2024 Telephone [facility] MEDICINE [address] [place] [address] Ave Gan MD [address] [place] [address] Medication Question Social History Tobacco Use Types [...] 05/19/2025 3:30 PM EDT Office Visit [facility] PEDS [address] [place] [address] Ave Gan MD [address] [place] [address] documented as of this encounter Visit Diagnoses Not on filedocumented in this encounter Additional Health Concerns Assessment Noted Time PHQ-9 Depression Total Score: 23 024 1:42 PM EST documented as of this encounter Care Teams Leveling Machine Operator Relationship Specialty Start Date End Date Ave Gan MD [address] [place] [address] PCP - General Family Medicine 05/30/21 documented as of this encounter
[2025-04-25 17:29] LABS: Anion Gap 12 (12-20); Blood Urea Nitrogen 17 mg/dL (9-16); Calcium 9.1 mg/dL (8.4-10.2); Carbon Dioxide 27 mmol/L (22-29); Chloride 103 mmol/L (96-108); Estimated Glomerular Filt Rate > 60; Potassium 3.3 mmol/L (3.3-5.1); Sodium 139 mmol/L (135-145)
== END 2025-04-25 16:29 | disposition home or self-care (01) ==
LOC: HO.LAB 16:28
PROVIDERS: Absent Provider Pediatrics; PCP Family Medicine; Visit Provider Student in an Organized Health Care Education/Training Program
DX: E87.6 Hypokalemia (principal)
CPT/HCPCS: 36415; 80048

== ENCOUNTER 2025-05-05 16:24 | Outpatient (REF) | payer OTHER, SELFPAY ==
--- OUTSIDE RECORDS SUMMARY | 2025-05-05 16:27 | XMS_ITS | Encounter Summary ---
Author Organization [employer] Address [address] [place] [address] [place] [address] Care Team Providers Care Candlemaker Name Role Phone Ave Gan MD Primary Care Provider [phone] Reason for Visit * Reason Onset Date Comments Medication Question 10/26/2024 Encounter Details Date Type Department Care Team ([facility] st Contact Info) Description 10/26/2024 Telephone [facility] MEDICINE [address] [place] [address] Ave Gan MD [address] [place] [address] Medication Question Social History Tobacco Use Types [...] Description 05/19/2025 3:30 PM EDT Office Visit [facility] MED & PEDS [address] [place] [address] Ave Gan MD [address] [place] [address] documented as of this encounter Visit Diagnoses Not on filedocumented in this encounter Additional Health Concerns Assessment Noted Time PHQ-9 Depression Total Score: 23 024 1:42 PM EST documented as of this encounter Care Teams Candlemaker Relationship Specialty Start Date End Date Ave Gan MD [address] [place] [address] PCP - General Family Medicine 05/30/21 documented as of this encounter
[2025-05-05 18:20] LABS: Anion Gap 13 (12-20); Blood Urea Nitrogen 16 mg/dL (9-16); Calcium 8.5 mg/dL (8.4-10.2); Carbon Dioxide 25 mmol/L (22-29); Chloride 104 mmol/L (96-108); Estimated Glomerular Filt Rate > 60; Magnesium 1.8 mg/dL (1.6-2.6); Potassium 3.0 mmol/L (3.3-5.1); Sodium 139 mmol/L (135-145)
== END 2025-05-05 16:25 | disposition home or self-care (01) ==
LOC: HO.CHCLDS 16:24
PROVIDERS: Visit Provider Family Medicine
DX: E87.6 Hypokalemia (principal)
CPT/HCPCS: 36415; 80048; 83735

== ENCOUNTER 2025-05-17 16:46 | Outpatient (REF) | payer OTHER, SELFPAY ==
--- OUTSIDE RECORDS SUMMARY | 2025-05-17 17:50 | XMS_ITS | Encounter Summary ---
Author Organization [employer] Address [address] [place] [address] [place] [address] Care Team Providers Care Valet Parker Name Role Phone Ave Gan MD Primary Care Provider [phone] Reason for Visit * Reason Onset Date Comments Medication Question 10/26/2024 Encounter Details Date Type Department Care Team ([facility] st Contact Info) Description 10/26/2024 Telephone [facility] MEDICINE [address] [place] [address] Ave Gan MD [address] [place] [address] Medication Question Social History Tobacco Use Types [...] Office Visit [facility] MED & PEDS [address] [place] [address] Ave Gan MD [address] [place] [address] documented as of this encounter Visit Diagnoses Not on filedocumented in this encounter Additional Health Concerns Assessment Noted Time PHQ-9 Depression Total Score: 23 024 1:42 PM EST documented as of this encounter Care Teams Valet Parker Relationship Specialty Start Date End Date Ave Gan MD [address] [place] [address] PCP - General Family Medicine 05/30/21 documented as of this encounter
[2025-05-17 18:06] LABS: Anion Gap 13 (12-20); Blood Urea Nitrogen 19 mg/dL (9-16); Calcium 9.3 mg/dL (8.4-10.2); Carbon Dioxide 26 mmol/L (22-29); Chloride 102 mmol/L (96-108); Estimated Glomerular Filt Rate > 60; Potassium 4.0 mmol/L (3.3-5.1); Sodium 137 mmol/L (135-145)
== END 2025-05-17 16:47 | disposition home or self-care (01) ==
LOC: HO.LAB 16:46
PROVIDERS: Pediatrics; PCP Family Medicine; Visit Provider Family Medicine
DX: E87.6 Hypokalemia (principal)
CPT/HCPCS: 36415; 80048

== ENCOUNTER 2025-05-19 16:28 | Outpatient (REF) | payer OTHER, SELFPAY ==
[2025-05-19 17:46] LABS: Appearance Urine Clear; Glucose Urine UA Negative (Negative); PH 6.0 (5.0-9.0); Specific Gravity - Urine 1.010 (1.005-1.025); UMIC TRIGGER UACC YES
== END 2025-05-19 16:29 | disposition home or self-care (01) ==
LOC: HO.CHCLNP 16:28
PROVIDERS: PCP Family Medicine; Visit Provider Family Medicine
DX: R35.1 Nocturia (principal); R35.0 Frequency of micturition
CPT/HCPCS: 81001

== ENCOUNTER 2025-06-10 15:23 | Outpatient (AMB) | payer SELFPAY ==
--- NOTE | 2025-06-10 15:35 | HO.NEPHOV_ITS ---
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 He has H/O hypertension and had been on multiple anti hypertensive medications. He is not sure whether he has taken any thiazide diuretics. He denies any H/O hypomagnesemia. He has no H/O familial Bartters or Giltelman syndrome. He has no H/O arrythmias or muscle weakness. He has no H/O renal calculi or metabolic acidosis. He has no H/O periodic paralysis. He denies nausea, vomiting, diarrhea or laxative abuse. He has been started on Spironolactone which is helping with BP and serum potassium. He denies any vascular disease or PAD. He had no specific complaints at the time of this office visit. [facility] Medical History (Updated 06/11/25 @ 15:38 by Enrico Gregg MD) Plantar fasciitis Obesity GERD (gastroesophageal reflux disease) Sleep apnea COVID-19 vaccine series completed BPH (benign prostatic hyperplasia) Vitamin D deficiency HTN (hypertension) Testicular lump Surgical History Hx of nasal polypectomy History of testicular surgery H/O colonoscopy Hx of cystoscopy Hx of transurethral resection of prostate History of appendectomy Family History Father Heart disease Mother Heart disease HTN (hypertension) Arthritis Depression Social History Alcohol intake: never Patient Tobacco Use Status: Never used Tobacco Current occupational status: employed and unemployed 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 Review of Systems Const All systems reviewed & are unremarkable except as noted in HPI and below Physical Exam Vital Signs: Last Vital Signs Pulse 77 06/10/25 15:38 BP 116/80 06/10/25 15:38 Pulse Ox 98 06/10/25 15:38 Oxygen Delivery Method Room Air 06/10/25 15:38 BMI result Body Mass Index 32.4 Const General: comfortable and no acute distress Orientation/consciousness: patient oriented x3 HEENT Head: Yes normocephalic Mouth: Normal oral and palatal mucosa present Eyes EOM: EOMs intact bilaterally Neck Neck: Yes supple Resp Auscultation: clear to auscultation bilaterally Cardio Jugular venous distension: no JVD Rate: regular rate GI Palpation (GI): Soft to palpation Auscultation: normal bowel sounds General: Yes no CVA tenderness Back/Spine/Pelvis Back: no CVA tenderness Skin General skin exam: no rashes or lesions noted Neuro General: patient oriented x3 and moves all extremities Extrem General: Yes no pedal edema Results Reviewed Nephrology Results: Hgb, (14.0-18.0) 13.0 g/dl L 04/19/25 WBC, (4.8-10.8) 8.0 X10*3/uL 04/19/25 Plt Count, (160-400) 334 X10*3/uL 04/19/25 Sodium, (135-145) 137 mmol/L 05/17/25 Potassium, (3.3-5.1) 4.0 mmol/L Δ 05/17/25 Chloride, (96-108) 102 mmol/L 05/17/25 Carbon Dioxide, (22-29) 26 mmol/L 05/17/25 BUN, (9-16) 19 mg/dL H 05/17/25 Creatinine, (0.5-1.4) 0.96 mg/dL 05/17/25 Calcium, (8.4-10.2) 9.3 mg/dL Δ 05/17/25 Urine Protein, (Neg-Trace) Negative mg/dL 05/19/25 Assessment & Plan Assessment & Plan (1) HTN (hypertension): Code(s): I10 - Essential (primary) hypertension Category: Medical Qualifiers: Hypertension type: primary hypertension Qualified Code(s): I10 - Essential (primary) hypertension (2) Hypokalemia: Code(s): E87.6 - Hypokalemia Category: Medical Plan Has H/O hypertension and had been on multiple anti hypertensive medications. He is not sure whether he has taken any thiazide diuretics. He denies any H/O hypomagnesemia. He has no H/O familial Bartters or Giltelman syndrome. He has no H/O arrythmias or muscle weakness. He has no H/O renal calculi or metabolic acidosis. He has no H/O periodic paralysis. He denies nausea, vomiting, diarrhea or laxative abuse. He has been started on Spironolactone which is helping with BP and serum potassium. He denies any vascular disease or PAD. Ordered work up. Wanted to do imaging studies which patient is reluctant to do as he will have to pay $ out of pocket. All these were discussed in detail. Further management is pending evolving data Orders: Orders Aldosterone 3 Weeks E87.6 - Hypokalemia, I10 - Essential (primary) hypertension Renin 3 Weeks E87.6 - Hypokalemia, I10 - Essential (primary) hypertension Electrolytes 3 Weeks E87.6 - Hypokalemia, I10 - Essential (primary) hypertension Creatinine 3 Weeks E87.6 - Hypokalemia, I10 - Essential (primary) hypertension Magnesium 3 Weeks E87.6 - Hypokalemia, I10 - Essential (primary) hypertension Parathyroid Hormone Intact 3 Weeks E87.6 - Hypokalemia, I10 - Essential (primary) hypertension Aldost/Renin 3 Weeks E87.6 - Hypokalemia, I10 - Essential (primary) hypertension Blood Urea Nitrogen 3 Weeks E87.6 - Hypokalemia, I10 - Essential (primary) hypertension Calcium 3 Weeks E87.6 - Hypokalemia, I10 - Essential (primary) hypertension Coding Level of Care Code New Pt Level 4 (75870) Diagnoses Primary hypertension I10 Hypertension type: primary hypertension Hypokalemia E87.6
[2025-06-10 15:38] VITALS: BP 116/80; PULSE 77; O2SAT 98; BMI 32.4
--- OUTSIDE RECORDS SUMMARY | 2025-06-10 17:40 | XMS_ITS | Encounter Summary ---
Author Organization [employer] Address [address] [place] [address] Care Team Providers Care Shearing Shed Hand Name Role Phone Ave Gan MD Primary Care Provider [phone] Encounter Details Date Type Department Care Team (Latest Contact Info) Description 07/22/2022 Abstract [facility] CONVERSIONS Dental, Provider, DDS Social History Tobacco Use Types Packs/Day Years Used Date Smoking Tobacco: Never Assessed Sex and Gender Information Value Date Recorded Sex Assigned at Male 07/29/2022 10:21 AM EDT Legal Sex Male 10:21 AM EDT Gender Identity Male 07/29/2022 10:21 AM EDT Sexual Orientation Straight 07/29/2022 10 :21 AM EDT documented as of this encounter Plan of Treatment Upcoming Encounters Date Type Department Care Team (Late st Contact Info) Description 06/23/2025 4:00 PM EDT Office Visit [facility] MED & PEDS [address] [place] [address] Jaxon Redmond MD [address] [place] [address] documented as of this encounter Visit Diagnoses Not on filedocumented in this encounter Care Teams Shearing Shed Hand Relationship Specialty Start Date End Date Ave Gan MD [address] [place] [address] PCP - General Family Medicine 05/30/21 documented as of this encounter
--- OUTSIDE RECORDS SUMMARY | 2025-06-10 17:40 | XMS_ITS | Encounter Summary ---
Author Organization [employer] Address [address] [place] [address] [place] [address] Care Team Providers Care Clinic Md Associate Name Role Phone Ave Gan MD Primary Care Provider [phone] Reason for Visit * Reason Onset Date Comments Medication Question 10/26/2024 Encounter Details Date Type Department Care Team ([facility] st Contact Info) Description 10/26/2024 Telephone [facility] MEDICINE [address] [place] [address] Ave Gan MD [address] [place] [address] Medication Question Social History Tobacco Use Types [...] Description 06/23/2025 4:00 PM EDT Office Visit [facility] MED & PEDS [address] [place] [address] Jaxon Redmond MD [address] [place] [address] documented as of this encounter Visit Diagnoses Not on filedocumented in this encounter Additional Health Concerns Assessment Noted Time PHQ-9 Depression Total Score: 23 024 1:42 PM EST documented as of this encounter Care Teams Clinic Md Associate Relationship Specialty Start Date End Date Ave Gan MD [address] [place] [address] PCP - General Family Medicine 05/30/21 documented as of this encounter
--- OUTSIDE RECORDS SUMMARY | 2025-06-10 17:40 | XMS_ITS | Encounter Summary ---
Author Organization [employer] Address [address] [place] [address] Care Team Providers Care Wood Mill Supervisor Name Role Phone Ave Gan MD Primary Care Provider [phone] Encounter Details Date Type Department Care Team (Latest Contact Info) Description 03/27/2021 Abstract [facility] CONVERSIONS Dental, Provider, DDS Social History [...] Description 06/23/2025 4:00 PM EDT Office Visit [facility] MED & PEDS [address] [place] [address] Jaxon Redmond MD [address] [place] [address] documented as of this encounter Visit Diagnoses Not on filedocumented in this encounter Care Teams Wood Mill Supervisor Relationship Specialty Start Date End Date Ave Gan MD [address] [place] [address] PCP - General Family Medicine 05/30/21 documented as of this encounter
--- OUTSIDE RECORDS SUMMARY | 2025-06-10 17:41 | XMS_ITS | Encounter Summary ---
Author Organization [employer] Address [address] [place] [address] Care Team Providers Care Abatement Worker Name Role Phone Ave Gan MD Primary Care Provider [phone] Reason for Visit * Reason Onset Date Comments Results 11/24/2023 Encounter Details Date Type Department Care Team ([facility] st Contact Info) Description 11/24/2023 Telephone [facility] MED & PEDS [address] [place], [place] [phone] Ave Gan MD [address] [place] [address] Results Social History Tobacco Use Types Packs/Day Years Used Date Smoking Tobacco: Never Passive Smoke Exposure: Never Smokeless Tobacco: Never Depression Answer Date Recorded Patient Health Questionnaire-9 [...] * Telephone Encounter - Lise Summers - 11/24/2023 10:33 AM EST TC from pt requesting call back regarding Results. Type of results: Xray Date when done: about a week ago Facility: [facility] documented in this encounter Plan of Treatment Upcoming Encounters Date Type Department Care Team (Late st Contact Info) Description 06/23/2025 4:00 PM EDT Office Visit [facility] MED & PEDS [address] [place] [address] Jaxon Redmond MD [address] [place] [address] documented as of this encounter Visit Diagnoses Not on filedocumented in this encounter Additional Health Concerns Assessment Noted Time PHQ-9 Depression Total Score: 23 024 1:42 PM EST documented as of this encounter Care Teams Abatement Worker Relationship Specialty Start Date End Date Ave Gan MD [address] [place] [address] PCP - General Family Medicine 05/30/21 documented as of this encounter
--- OUTSIDE RECORDS SUMMARY | 2025-06-10 17:41 | XMS_ITS | Clinical Summary ---
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 cyanocobalamin (Vitamin B-12) 1000 MCG tablet Take 1 tablet by mouth at bed time. 07/20/20 21 Active Nyddee-Bdthl-Mv allyson-Fish Oil (Glucosamine Chondroitin Plus) capsule Take 1 capsule once a day PO 08/14/20 22 Active pantoprazole (ProtoNix) 20 MG EC tablet take 1 tablet by oral qdaily 03/22/20 22 Active sennosides (Senokot) 8.6 MG tablet Take 2 tablets by mouth at bed time. 04/18/20 22 Active Procto-Med HC 2.5 % rectal cream APPLY RECTALLY TWICE DAILY NEEDED FOR HEMORRHOIDS 11/25/19 23 Active Bisacodyl EC 5 MG EC tablet 11/20/19 23 Active triamcinolone (Kenalog) 0.5 % ointment Apply topically 2 times daily. 90 g 08/04/20 23 Active oxymetazoline (Afrin Nasal [place]) 0.05 % nasal spray Administer 2 sprays into each nostril every 12 (twelve) hours if needed for congestion for up to 2 days. Do not use for more than 3 days. 30 mL 10/29/19 24 Active Blood Pressure kit 1 Units in the morning. 1 kit 11/10/19 24 Active prazosin (Minipress) 1 MG capsule 11/14/19 24 Active ARIPiprazole (Abilify) 15 MG tablet Take 15 mg by mouth at bedtime. 03/24/20 24 Active sertraline (Zoloft) 100 MG tablet Take 100 mg by mouth in the morning. 03/08/20 24 Active cholecalciferol VITAMIN D (Vitamin D-3) 50 MCG (2000 UT) tablet Take 1 tablet (50 mcg) by mouth Once per day. 90 tablet 1 04/29/20 24 Active Blood Pressure kit 1 Units Once per day. 1 kit 07/26/20 24 Active rosuvastatin (Crestor) 40 MG tablet Take 1 tablet (40 mg) by mouth in the morning. 90 tablet 1 10/25/19 25 Active Acetaminophen 500 MG capsule Take one to two tablets as needed for fever or pain every 6 hours 30 capsule 10/25/19 25 Active busPIRone (Buspar) 5 MG tablet Take 1 tablet (5 mg) by mouth if needed in the morning and at bedtime (anxiety). 60 tablet 3 10/25/19 25 Active cetirizine (ZyrTEC) 10 MG tablet Take 1 tablet (10 mg) by mouth Once per day. 90 tablet 3 10/25/19 25 Active fluticasone (Flonase) 50 MCG/ACT nasal spray Administer 1 spray into each nostril 2 times daily. Shake gently. Before first use, prime pump. After use, clean tip and replace cap. 16 g 1 10/25/19 25 Active folic acid (Folvite) 800 MCG tablet Take 1 tablet (0.8 mg) by mouth Once per day. 120 tablet 3 10/25/19 25 Active Magnesium Chloride 64 MG tablet Take 64 mg by mouth at bedtime. 120 tablet 3 10/25/19 25 Active QUEtiapine (SEROquel) 50 MG tablet Take 0.5 tablets (25 mg) by mouth at bedtime. 15 tablet 10/25/19 25 Active Tirzepatide-Shaheed ght Management (Zepbound) 10 MG/0.5ML solution auto-injector Inject 0.5 mL (10 mg) under the skin 1 (one) time per week. 2 mL 1 04/18/20 25 Active Multiple Vitamin (Multi-Vitamin) tablet Take 1 tablet by mouth Once per day. 90 tablet 3 04/18/20 25 Active spironolactone (Aldactone) 25 MG tabletIndicatio ns:Primary hypertension TAKE 1 TABLET BY MOUTH EVERY DAY 90 tablet 1 05/19/20 25 Active amLODIPine (Norvasc) 10 MG tablet Take 1 tablet (10 mg) by mouth Once per day. 90 tablet 1 05/19/20 25 Active terbinafine (LamISIL) 250 MG tablet Take 1 tablet (250 mg) by mouth Once per day. 84 tablet 05/19/20 25 Active spironolactone (Aldactone) 25 MG tabletIndicatio ns:Primary hypertension TAKE 1 TABLET BY MOUTH EVERY DAY 90 tablet 1 10/25/19 25 2024 Discontinued(R eorder (will not trigger notification to Pharmacy)) amLODIPine (Norvasc) 10 MG tablet TAKE ONE TABLET DAILY 90 tablet 1 04/15/20 25 2024 Discontinued(R eorder (will not trigger notification to Pharmacy)) terbinafine (LamISIL) 250 MG tablet Take 1 tablet (250 mg) by mouth Once per day. 84 tablet 04/18/20 25 2024 Discontinued(R eorder (will not trigger notification to Pharmacy)) naproxen (Naprosyn) 500 MG tablet Take 1 tablet (500 mg) by mouth 2 times daily. 60 tablet 04/18/20 25 2024 potassium chloride CR (K-Tab) 20 MEQ ER tablet Take 1 tab orally every 6 hours for 1 day 4 tablet 04/19/20 25 2024 Discontinued hydroCHLOROthia zide (HYDRODiuril) 25 MG tablet Take 1 tablet (25 mg) by mouth Once per day. 30 tablet 11 04/20/20 25 2024 Discontinued(T herapy completed) potassium chloride CR (Klor-Con M20) 20 MEQ ER tabletIndicatio ns:Hypokalemia Take 1 tablet (20 mEq) by mouth Once per day. Do not crush or chew. 14 tablet 05/06/20 25 2024 Discontinued spironolactone (Aldactone) 50 MG tabletIndicatio ns:Primary hypertension TAKE 1 TABLET BY MOUTH EVERY DAY 90 tablet 1 05/19/20 25 2024 Discontinued(R eorder (will not trigger notification to Pharmacy)) Active Problems Patient Care Coordination No te Formatting of this note migh t be different from the original. Pt has severe gingival enlargement. Dr Dairus Wilson recommends changing BP med from calcium channel leyda to try to decrease gingival enlargement. Pt has periodontal disease. Stressed importance of improving oral hygiene by brushing with rotary style toothbrush (Oral B), daily flossing and waterpik. Scaling and root planing last done 07/22/2023, pt not eligible until after 06/2026. 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 I have prescribed Seroquel, Zoloft, Ambien. Assessment & Plan (11/10/2023 9:59 AM EST): depressed mood, loss of interests/pleasure , changes in sleep difficulty falling asleep, difficulty staying asleep , and restless, unsatisfying sleep, change in appetite or weight reduce appetite, psychomotor agitation, psychomotor retardation, trouble concentrating, thoughts of worthlessness or guilt, thoughts about or suicide, fatigue/loss of energy, inappropriate guilt , hopelessness, worthlessness , difficulty concentrating, passive suicidal ideation w/o plan endorsed auditory hallucinations; for a period of 6-12 mo in the context of divorce/separation, financial concern, employment concern, and separation from spouse 3yrs ago and on-going relationship issues with ex-spouse, more recently loss of job about a week ago. New/Additional Services needed Off-site services for Behavioral Health Integration Plan Internal Cold handoff to [facility] External [facility] connecting to both OP therapy on 11/11 and psych med management services 12/22. Crisis team to call for safety check ins. Patient Self Plan Patient to utilize skills provided in intervention , Patient to reach out to [facility] team as needed, Patient to engage in OP therapy , Patient to reach out to [facility] as needed, and Patient to follow-up with external team Assessment & Plan (11/03/2023 2:28 PM EST): PROGRESS NOTE: ID: Clemente is a 53 y.o. Decline to answer straight-identified cis-male (pronouns ) with No previous hx of MH dx or sx No previous hx of MH services who presents for Depression and Anxiety. Lives in a room that he rent, recent job loss, her ex- of 15 years is now , children doesn't want to know about him. During IBH Consult Clemente presenting with depressed mood, loss of interests/pleasure , changes in sleep difficulty falling asleep, difficulty staying asleep , and restless, unsatisfying sleep, change in appetite or weight overeating, trouble concentrating, thoughts of worthlessness or guilt, fatigue/loss of energy, hopelessness, thoughts of , passive suicidal ideation w/o plan and excessive worry/anxiety, difficulty controlling worry, delusions, restless/keyed up/On edge, easily fatigued, difficulty concentrating/Mind going blank , irritability, muscle tension, and sleep disturbance difficulty falling asleep and difficulty staying asleep ; for a period of 0-6 mo, for all symptoms in the context of divorce/separation, family issues, financial concern, relationship issues, and seeking nurse paralegal. PLAN: New/Additional Services needed Off-site services for Behavioral Health Integration Plan External OP therapy referral and OP psychiatry Referral Patient Self Plan Patient to utilize skills provided in intervention , Patient to reach out to [facility] team as needed, and Patient to reach out to [facility] as needed Severe anxiety 11/03/2023 Numbness and tingling of both feet 10/29/2023 Assessment & Plan (11/03/2023 1:24 PM EST): Patient still presents visit with complaints of tingibly sensation, however, it was noticed that patient had fungus on both feet upon examination. Therefore, patient will be provided with terbinafine cream. In addition, patient will be sent for labs for further evaluation; will follow up with results. -Labs: Vitamin B12/Folate, TSH/FT4 Assessment & Plan (11/03/2023 1:25 PM EST): Patient that presented visit with concerns of numbness and tingling on both feet With HTN meds, will switch meds and fup to assess if improvement after switching medication, discussed with pt BP med unlikely culprit Hypertrophic scar 08/04/2023 Assessment & Plan (08/04/2023 4:27 PM EST): Patient with complaints of a Hypertrophic Scar will be referred to Dermatology. Urticaria 07/15/2023 Assessment & Plan (07/15/2023 4:21 PM EDT): Patient with complaints of an allergic reaction will be prescribed Zyrtec, Prednisone, and Benadryl to treat concern. Advised patient that some of the prescribed medication might make him drowsy. Will referred to Allergy. Lateral epicondylitis of left elbow 12/25/2022 Assessment & Plan (01/20/2023 5:51 PM EDT): -Refill ibuprofen sent to pharmacy -Referral to [facility] for further eval and tx - consideration of steroid injection -If long wait time, consider referral to [facility] Rhinosinusitis 11/25/2022 Assessment & Plan (11/10/2023 3:24 PM EST): Patient reports he never had ENT called, reviewed referral and it was done. At this point requesting a new referral to ENT for continuous rhinosinusitis. Assessment & Plan (11/25/2022 5:29 PM EST): Reports that he was told he has obstructive sleep apnea and has recurrent symptoms of rhinitis, thinks this is related. At this point per patient request referral was placed. Obesity due to excess calories 09/27/2022 Assessment & Plan (01/18/2025 8:21 PM EDT): Patient changed from insurance, zepbound is no longer covered, will send new prescription, he will need to pay out of pocket, risk vs benefits discussed Assessment & Plan (07/26/2024 3:56 PM EDT): Patient currently on pharmacotherapy to assist with management of his weight. Starting weight: 230 lbs Current weight: 218 lbs Total wt loss 12 lbs, wt loss 5.2%, started 4 months and uptitration of dose 2 weeks ago, at this time if weight loss less then 10% at 6 months, will switch to tirzepetide. Review continue lifestyle modifications. Patient was titrated up to treatment dose. Tolerated titration well. Patient on Wegovy, given know efficacy and proven benefits to reduce the risk of cardiovascular events in patients who are overweight or obese and have cardiovascular disease, following of the SELECT trial results. Reviewed mechanism of action with patient. Discussed side effects with patient: nausea, vomiting, diarrhea & risk of pancreatitis. No contraindications identified: , hx of pancreatitis, hx of medullary thyroid cancer or MEN 2. Discussed calorie deficit, recommended reduction of 20-30% of maintenance calories; bakery decorator referral offered. Recommended to decrease soda and sugary beverage consumption. Recommended at least 20 g per meal of protein to assist with satiety. Recommended at least 150 min/week of moderate intensity exercise. Assessment & Plan (04/29/2024 3:34 PM EDT): Discussed calorie deficit, recommended reduction of 20-30% of maintenance calories; bakery decorator referral offered. Recommended to decrease soda and sugary beverage consumption. Recommended at least 20 g per meal of protein to assist with satiety. Recommended at least 150 min/week of moderate intensity exercise. Assessment & Plan (03/01/2024 2:20 AM EDT): Pt was prescribed : -Semaglutide-Weight Management (Wegovy) 0.25 MG/0.5ML solution auto-injector -Pt was instructed how to use the auto-injector and was educated on benefits and possible side effects -F/u once ins approves med. Discussed calorie deficit, recommended reduction of 20-30% of maintenance calories; bakery decorator referral offered. Recommended to decrease soda and sugary beverage consumption. Recommended at least 20 g per meal of protein to assist with satiety. Recommended at least 150 min/week of moderate intensity exercise. Assessment & Plan (11/10/2023 3:25 PM EST): Patient and family member requesting labs, orders placed. Assessment & Plan (12/25/2022 4:28 PM EDT): Declined referral to Nutrition or bariatric surgery. Reports took phen/topamax w/o effect, only took for 1 month and didn't showup for followup. Did discuss using other pharmacotherapy, including Wegovy, he reports he will want to trial. Will send to pharmacy, insurance will not cover. At this moment will f/up with 1 month if he proceeds with this. Assessment & Plan (09/27/2022 5:11 PM EST): Patient with elevated BMI, reports has a friend who is using phentermine and will want trial. Reports doing exercise and diet. Discussed risk of medications and will start trial of phen/topamax. F/u in 4-6 weeks. Phentermine/topamax: 8/50 mg. Discussed side effects-> tachycardia, HTN, teratogenic, cognitive dysfuction, metabolic acidosis, constipation, dysgeusia. Denies hx of , hyperthyroidism, MAOI use or glaucoma. Denies hx of kidney stones. Obstructive sleep apnea 05/29/2020 Assessment & Plan (12/25/2022 4:28 PM EDT): New sleep study shows needs for sleep apnea machine, was already referred to ENT for his rhinosinusitis concerns. Assessment & Plan (09/27/2022 5:10 PM EST): Reports he discontinued using the machine as he felt it was too much pressure and uncomfortable to use at night. Reports he will want to have machine from another vendor as he feels the machine he was given was used and the technology was obsolete. At this moment will restart process to obtain sleep apnea machine and also refer to sleep medicine to address his concern about pressure and mask wearing. Will send message to DME specialist to start process. Chronic constipation 01/28/2018 Hypertensive disorder 01/08/2017 Assessment & Plan (07/01/2024 11:24 AM EDT): - Target BP < 140/90 mmHg - Plan: Decrease chlorthalidone to 12.5mg daily START spironolactone 25mg daily Continue felodipine 10mg daily - Repeat BMP 1 week Assessment & Plan (04/29/2024 3:34 PM EDT): Cont current regimen. Target BP < 140/90 mmHg. Assessment & Plan (12/16/2023 11:21 AM EDT): Patient reports that he feels he can't manage multiple medications and self reports itchines with losartan, valsartan and INESSA-I, he will prefer a combined medication to avoid missing doses, will switch to [id number] Assessment & Plan (12/08/2023 6:09 PM EDT): Patient on felodipine and chlorthalidone, his bp today at clinic was controlled, but he refers at home usually distolic results are above 90, with associated headaches, will prescribe spironolactone 50mg, follow up in 1 month Assessment & Plan (12/02/2023 10:28 AM EST): Uncontrolled: Patient's sister and himself requested to discontinue ARBs during last visit since he believed it was causing him itchiness. During that time, I made patient aware that his blood pressure would become elevated. Today, patient returned with high blood pressure. I am going to prescribed him felodipine ER for blood pressure. We had discussion on treatment plan if felodipine ER causes him negative side effects. F/U appoitment to assess new medication is helping with blood pressure. Future Appointments Date Time Provider Department Center 11/27/2023 3:[address] [facility] 12/11/2023 2:[address] [facility] Assessment & Plan (11/10/2023 3:23 PM EST): Patient reports he strongly believes that his losartan (ARBs) are giving him itchiness. He was suppose to also be on thalidone but reports he was only taking losartan, transition off ARB to diuretic and schedule f/up with nursing. Assessment & Plan (11/03/2023 1:26 PM EST): Controlled: patient presented visit with stable blood pressure readings. Therefore, will not make any changes at this time. Assessment & Plan (08/04/2023 4:26 PM EST): Controlled: will keep treating with medications. Advised to keep monitoring blood pressure at home. Encounters Date Type Department Care Team Description 05/27/2025 Refill [facility] [address] [place] [address] Ave Gan MD Hypokalemia 05/19/2025 4:00 PM EDT Office Visit [facility] [address] [place] [address] Ave Gan MD Primary hypertension (Primary Dx); Nocturia; Urinary frequency 05/19/2025 Travel 05/18/2025 Results Follow-Up [facility] [address] [place] [address] Heidy Presley, SMITH Basic Metabolic Panel 05/18/2025 Telephone [facility] [address] [place] [address] Juhi Mcknight MD 05/12/2025 Telephone [facility] [address] [place] [address] Ave Gan MD Lab Orders; Medication Question 05/04/2025 Telephone [facility] [address] [place] [address] Ave Gan MD 04/26/2025 Results Follow-Up [facility] [address] [place] [address] Ave Gan MD Basic Metabolic Panel, Basic Metabolic Panel, Magnesium 04/25/2025 Orders Only [facility] [address] [place] [address] Audrey Rouse MD Hypokalemia (Primary Dx) 04/23/2025 Refill [facility] [address] [place] [address] Ave Gan MD Hypokalemia 04/23/2025 Telephone [facility] [address] [place] [address] Audrey Rouse MD 04/22/2025 9:45 AM EDT Clinical Support [facility] [address] [place] [address] Sis Porter RN Primary hypertension [I10] 04/22/2025 Travel 04/20/2025 Results Follow-Up [facility] [address] [place] [address] Ave Gan MD Vitamin B12 (Cobalamin) and Folate Panel, Serum, Magnesium, Comprehensive Metabolic Panel, Additional followed-up results: 3 04/19/2025 Telephone [facility] [address] [place] [address] Juhi Mcknight MD 04/19/2025 Orders Only [facility] [address] [place] [address] Juhi Mcknight MD 04/18/2025 4:00 PM EDT Office Visit [facility] [address] [place] [address] Ave Gan MD Class 1 obesity due to excess calories with body mass index (BMI) of 33.0 to 33.9 in adult, unspecified whether serious comorbidity present (Primary Dx) 04/18/2025 Travel 04/15/2025 Refill [facility] [address] [place] [id number] Juhi Mcknight MD 04/14/2025 Telephone [facility] [address] [place] [address] Ave Gan MD chart prep 04/08/2025 Patient Outreach [facility] [address] [place] [address] [address] [address] Gan MD Pre-visit Planning (SDOR screening unable to be completed. ) 03/18/2025 Telephone [facility] [address] [place] [address] Ave Gan MD Medication Question from Last 3 Months Immunizations Immunization Administration Dates Next Due Jerrell SARS-CoV-2 Vaccination 01/04/2021 Td (adult), 5 Lf tetanus tox oid, preservative free, adsorbed 07/07/2016 Social History Tobacco Use Types Packs/Day Years Used Date Smoking Tobacco: Never Passive Smoke Exposure: Never Smokeless Tobacco: Never Tobacco Cessation:Counseling Given: Not Answered Alcohol Answer Date Recorded Frequency of Alcohol Consumption Not on file 07/26/2024 Average Number of Drinks Not on file 024 Frequency of Binge Drinking Not on file 06/30 Score 0 07/26/2024 Depression Answer Date Recorded Patient Health Questionnaire-9 Score 0 04/18/2025 Patient Health Questionnaire-9 Score 0 04/18/2025 Last PHQ-9: Questionnaire Data Not on file 0 04/18/2025 Housing Stability Answer Date Recorded What is your housing situation today? I have renetta vargas 04/18/[address] you li ve. Do you have problems with any of the following? None of the above 04/18/2025 Food Insecurity Answer Date Recorded Within the past 12 months, y ou worried that your food would run out before you got money to buy more: Never True 04/18/2025 Within the past 12 months,th e food you bought just didn't last and you didn't have enough money to get more: Never True Transportation Answer Date Recorded In the past 12 months, has l ack of transportation kept you from medical appts, meetings, work or from getting things needed for daily living? No 04/18/2025 Utilities Answer Date Recorded In the past 12 months, has t he electric, gas, oil or water company threatened to shut off services in your home? No 04/18/2025 Depression Answer Date Recorded Patient Health Questionnaire-2 Score 0 04/18/2025 Internet Access Answer Date Recorded Internet Access Q1 Yes 04/18/2025 Internet Access Q2 Not on file 04/18/2025 Sex and Gender Information Value Date Recorded Sex Assigned at Male 07/29/2022 10:21 AM EDT Legal Sex Male 10:21 AM EDT Gender Identity Male 07/29/2022 10:21 AM EDT Sexual Orientation Straight 07/29/2022 10 :21 AM EDT Last Filed Vital Signs Vital Sign Reading Time Taken Comments Blood Pressure 134/92 05/19/2025 3:14 PM EDT Pulse 76 05/19/2025 3:14 PM EDT Temperature 36.6 C (97.8 F) 05/19/2025 3:14 PM EDT Respiratory Rate 16 05/19/2025 3:14 PM EDT Oxygen Saturation 96% 05/19/2025 3:14 PM EDT Inhaled Oxygen Concentration - - Weight 93.4 kg (206 lb) 05/19/2025 3:14 PM EDT Height 169 cm (5' 6.54 ) 05/19/2025 3:14 PM EDT Body Mass Index 32.71 05/19/2025 3:14 PM EDT Plan of Treatment Upcoming Encounters Date Type Department Care Team (Late st Contact Info) Description 06/23/2025 4:00 PM EDT Office Visit [facility] [address] [place] [address] DominguezJaxon Tamayo MD [address] [place] [address] Health Maintenance Due Date Last Done Comments CT Colonography 1972 Colonoscopy 1972 FIT 1972 Sigmoidoscopy 1972 Disability Screening 1972 Hepatitis B Vaccines (1 of 3 - 19+ 3-dose series) 1991 DTaP/Tdap/Td Vaccines (1 - Tdap) 07/08/2016 07/07/2016 Pneumococcal Vaccine: 50+ Years (1 of 1 - PCV) 2022 Zoster Vaccines (1 of 2) 2022 Dental X-Ray: Full Mouth 03/16/2024 03/15/2021, 01/27 FOBT 07/22/2024 07/22/2023 Dental Oral Exam 02/09/2025 08/11/2024, , 03/15/2021, Additional history exists Dental Prophylaxis 02/09/2025 08/11/2024, 0 05/26/2023, 07/22/2022, Additional history exists COVID-19 Vaccine ( season) 2025 01/04/2021 Influenza Vaccine (#1) 2025 Dental X-Ray: Bitewings 08/12/2025 08/11/20, 07/22/2022, 03/15/2021, Additional history exists Alcohol/Substance Use Screening 04/18/2026 04/18/2025 Depression Screening 04/18/2026 04/18/2025, 04/18/20 SDOH Screening 04/18/2026 04/18/2025 Tobacco Screening 05/19/2026 05/19/2025 Colorectal Cancer Screening 07/22/2026 FIT DNA/Cologuard 07/22/2026 07/22/2023 Lipid Panel 05/03/2029 05/03/2024, 11/27, 07/23/2021, Additional history exists RSV Patients and Patients Aged 60 years or older (1 - 1-dose 75+ series) 2047 HIV Screening Completed 03/12/2021, 03/12/2021 Hepatitis C Screening Completed 03/12/2021 HIB Vaccines Aged Out No longer eligi ble based on patient's age to complete this topic HPV Vaccines Aged Out No longer eligi ble based on patient's age to complete this topic Hepatitis A Vaccines Aged Out No long er eligible based on patient's age to complete this topic IPV Vaccines Aged Out No longer eligi ble based on patient's age to complete this topic Meningococcal B Vaccine Aged Out No l onger eligible based on patient's age to complete this topic Meningococcal Vaccine Aged Out No мария michaelle eligible based on patient's age to complete this topic RSV under 20 months Aged Out No longe r eligible based on patient's age to complete this topic Rotavirus Vaccines Aged Out No longer eligible based on patient's age to complete this topic Procedures Procedure Name Priority Date/Time Associated Diagnosis Comments POCT URINALYSIS DIPSTICK Routine 05/19/2025 4:29 PM EDT Nocturia Urinary frequency URINALYSIS, COMPLETE, WITH REFLEX TO CULTURE Routine 05/19/2025 4:17 PM EDT Nocturia Urinary frequency BASIC METABOLIC PANEL Routine 05/17/2025 5:11 PM EDT Hypokalemia BASIC METABOLIC PANEL Routine 05/17/2025 Hypokalemia MAGNESIUM Routine 05/05/2025 4:26 PM EDT Hypokalemia BASIC METABOLIC PANEL Routine 05/05/2025 4:26 PM EDT Hypokalemia BASIC METABOLIC PANEL Routine 04/25/2025 4:35 PM EDT Hypokalemia BASIC METABOLIC PANEL Routine 04/22/2025 3:52 PM EDT Class 1 obesity due to excess calories with body mass index (BMI) of 33.0 to 33.9 in adult, unspecified whether serious comorbidity present CBC WITH AUTO DIFFERENTIAL Routine 04/19/2025 4:10 PM EDT Class 1 obesity due to excess calories with body mass index (BMI) of 33.0 to 33.9 in adult, unspecified whether serious comorbidity present FERRITIN Routine 04/19/2025 4:10 PM EDT Class 1 obesity due to excess calories with body mass index (BMI) of 33.0 to 33.9 in adult, unspecified whether serious comorbidity present IRON AND TOTAL IRON BINDING CAPACITY Routine 04/19/2025 4:10 PM EDT Class 1 obesity due to excess calories with body mass index (BMI) of 33.0 to 33.9 in adult, unspecified whether serious comorbidity present COMPREHENSIVE METABOLIC PANEL Routine 04/19/2025 4:10 PM EDT Class 1 obesity due to excess calories with body mass index (BMI) of 33.0 to 33.9 in adult, unspecified whether serious comorbidity present MAGNESIUM Routine 04/19/2025 4:10 PM EDT Class 1 obesity due to excess calories with body mass index (BMI) of 33.0 to 33.9 in adult, unspecified whether serious comorbidity present VITAMIN B12/FOLATE, SERUM PANEL Routine 04/19/2025 4:10 PM EDT Class 1 obesity due to excess calories with body mass index (BMI) of 33.0 to 33.9 in adult, unspecified whether serious comorbidity present PROPHYLAXIS - ADULT Routine 08/11/2024 3 :00 PM EST BITEWINGS - 4 RADIOGRAPHIC IMAGES Routine 08/11/2024 3:00 PM EST PERIODIC ORAL EVALUATION - ESTABLISHED PATIENT Routine 08/11/2024 3:00 PM EST LIPID PANEL, STANDARD Routine 05/03/2024 11:52 AM EDT Obesity due to excess calories, unspecified classification, unspecified whether serious comorbidity present LAB COLOGUARD COLON CANCER SCREEN Routine 07/22/2023 8:44 PM EDT Colon cancer screening INTRAORAL - COMPLETE SERIES OF RADIOGRAPHIC IMAGES Routine 03/15/2021 12:00 AM EDT ZZZ HISTORICAL HEPATITIS C AB W/REFL TO HCV RNA, QN, PCR Routine 03/12/2021 3:37 PM EDT HIV 1/2 ANTIGEN/ANTIBODY, FOURTH GENERATION W/RFL Routine 03/12/2021 11:45 AM EDT from Last 3 Months or Most Recently Relevant to Health Maintenance Results * (ABNORMAL) POCT Urinalysis (05/19/2025 4:29 PM EDT) Color, UA Yellow Clarity, UA Clear Glucose, UA Negative Bilirubin, UA Negative Ketones, UA Negative Spec Grav, UA 1.020 Blood, UA Positive(A) Negative, None Detected Comment:trace-lysed pH, UA 6.0 Protein, UA Negative Urobilinogen, UA 0.2 Leukocytes, UA Negative Negative, Rare, Trace Nitrite, UA Negative Negative, None Detected Appearance, UA clear QC Media Lot # [id number] Lot# Expiration Date [id number] Urine 05/19/2025 4:[address] Gan MD POINT OF CARE TEST ENTER/EDIT ORDERABLES Final Result * Urinalysis, Complete, with Reflex to Culture (05/19/2025 4:17 PM EDT) Color Urine Straw [facility] Appearance Urine Clear [facility] PH 6.0 5.0 - 9.0 [facility] Glucose Urine UA Negative Negative mg/dL [facility] Urine Blood Trace Negative [facility] Specific [place] - Urine 1.010 1.005 - 1.025 [facility] Urine Protein Negative Neg-Trace mg/dL [facility] Urine Ketones Negative Negative mg/dL [facility] Nitrite Urine Negative Negative [facility] Leukocyte Esterase Urine Negative Negative [facility] RBC Urine 0-2 0 - 2 /HPF [facility] Urine WBC 0-5 0 - 5 /HPF [facility] Urine Squamous Epithelial Cell 0-2 0 - 2 /HPF [facility] Urine Bacteria None Seen None Seen [facility] Hyaline Casts, Urine 0-2 0 - 2 /LPF [facility] Urine 05/19/2025 4:17 PM EDT 05/19/2025 5:40 PM EDT Narrative [facility] - 05/19/2025 5:56 PM EDT [id number], Clean Catch us Ave Gan MD LAB URINE ORDERABLES Final Re sult [facility] [address] [place] [phone] * (ABNORMAL) Basic Metabolic Panel (05/17/2025 5:11 PM EDT) Only the most recent of5 resultswithin the time period is included. Sodium 137 135 - 145 mmol/L [facility] Potassium 4.0 3.3 - 5.1 mmol/L [facility] Comment:Slight Hemolysis.Int erpret result with caution. Chloride 102 96 - 108 mmol/L [facility] Carbon Dioxide 26 22 - 29 mmol/L [facility] Anion Gap 13 12 - 20 [facility] Urea Nitrogen (BUN) 19(H) 9 - 16 mg/dL [facility] Creatinine, Serum 0.96 0.5 - 1.4 mg/dL [facility] Estimated Glomerular Filt Rate >60 [facility] Comment:Chronic Kidney Disea se: Estimated GFR < 60 mL/min/[id number] Kidney Disease: Estimated GFR < 15 mL/min/1.73m2 Glucose 75 60 - 115 mg/dL [facility] Calcium 9.3 8.4 - 10.2 mg/dL [facility] Blood Venous blood specimen / Unknown 05/17/2025 5:11 PM EDT 05/17/2025 5:11 PM EDT us Juhi Mcknight MD LAB BLOOD ORDERABLES Final Re sult Performing Organization Address City/[facility]/ZIP Co de Phone Number [facility] [address] [place] [phone] * Magnesium (05/05/2025 4:26 PM EDT) Only the most recent of2 resultswithin the time period is included. Magnesium 1.8 1.6 - 2.6 mg/dL [facility] Blood Venous blood specimen / Unknown 05/05/2025 4:26 PM EDT 05/05/2025 5:[address] Gan MD LAB BLOOD ORDERABLES Final Re sult Performing Organization Address City/[facility]/ZIP Co de Phone Number [facility] [address] [place] [address] [phone] * Vitamin B12 (Cobalamin) and Folate Panel, Serum (04/19/2025 4:10 PM EDT) Vitamin B12 339 200 - 900 pg/mL [facility] Comment:NORMAL 200-900 PG/ML INDETERMINATE 160-199 PG/ML DEFICIENT < 160 PG/ML Folate 5.2 > or = 4.0 ng/mL [facility] Comment:Reference Values:> o r = 4.0 ng/mL< 4.0 ng/mL suggests folate deficiency Methotrexate, aminopterin and folinic acid(leucovorin) are chemotherapeutic agents whose molecularstructures are similar to folate; therefore, the Architectfolate assay cannot be used for patients using these drugs. Blood Venous blood specimen / Unknown 04/19/2025 4:10 PM EDT 04/19/2025 6:[address] Gan MD LAB BLOOD ORDERABLES Final Re sult [facility] [address] [place] [phone] * (ABNORMAL) CBC auto differential (04/19/2025 4:10 PM EDT) White Blood Count 8.0 4.8 - 10.8 X10*3/uL [facility] Red Blood Count 4.86 4.60 - 5.80 X10*6/uL [facility] Hemoglobin 13.0(L) 14.0 - 18.0 g/dl [facility] Hematocrit 39.2(L) 42.0 - 52.0 % [facility] Mean Corpuscular Volume 80.7 80.0 - 98.0 fL [facility] Mean Corpuscular Hemoglobin 26.7(L) 27.0 - 33.0 pg [facility] Mean Corpuscular HGB Conc 33.2 31.0 - 36.0 g/dl [facility] Red Cell Distribution Width 15.7 11.0 - 16.0 % [facility] Platelet Count 334 160 - 400 X10*3/uL [facility] Mean Platelet Volume 10.1 9.4 - 12.4 fL [facility] Neutrophils Percent Auto 63.6 45 - 73 % [facility] Imm Gran Pct Auto 0.4 0.0 - 0.4 % [facility] Lymphocytes Percent Auto 23.5 20 - 40 % [facility] Monocytes Percent Auto 6.8 2 - 11 % [facility] Eosinophils Percent Auto 4.8(H) 0 - 4 % [facility] Basophils Percent Auto 0.9 0 - 2 % [facility] NRBC Pct Auto 0.0 0.0 - 0.2 /100WBC [facility] Neutrophils Absolute Auto 5.1 2.0 - 8.3 x10*3/uL [facility] Imm Gran Abs Auto 0.03 0.00 - 0.03 X10*3/uL [facility] Lymphocytes Absolute Auto 1.9 1.2 - 4.9 X10*3/uL [facility] Monocytes Absolute Auto 0.5 0.1 - 1.2 X10*3/uL [facility] Eosinophils Absolute Auto 0.4 0.0 - 0.4 X10*3/uL [facility] Basophils Absolute Auto 0.1 0.0 - 0.2 X10*3/uL [facility] NRBC Abs Auto 0.000 0.0 - 0.012 X10*3/uL [facility] Blood Venous blood specimen / Unknown 04/19/2025 4:10 PM EDT 04/19/2025 6:[address] Gan MD LAB BLOOD ORDERABLES Final Re sult [facility] [address] [place] [phone] * Iron And Total Iron Binding Capacity (04/19/2025 4:10 PM EDT) Iron 53 45 - 160 mcg/dL [facility] Total Iron Binding Capacity 281 228 - 428 mcg/dL [facility] Percent Iron Saturation 19 15 - 50 % [facility] Unsaturated Iron Binding 228 ug/dL [facility] Blood Venous blood specimen / Unknown 04/19/2025 4:10 PM EDT 04/19/2025 6:[address] Gan MD LAB BLOOD ORDERABLES Final Re sult Performing Organization Address [facility]/ZIP Co de Phone Number [facility] [address] [place] [address] [phone] * Ferritin (04/19/2025 4:10 PM EDT) Ferritin 183 20 - 250 ng/mL [facility] Blood Venous blood specimen / Unknown 04/19/2025 4:10 PM EDT 04/19/2025 6:[address] Gan MD LAB BLOOD ORDERABLES Final Re sult Performing Organization Address [facility] Co de Phone Number [facility] [address] [place] [address] [phone] * (ABNORMAL) Comprehensive Metabolic Panel (04/19/2025 4:10 PM EDT) Sodium 140 135 - 145 mmol/L [facility] Potassium 2.6(LL) 3.3 - 5.1 mmol/L [facility] Comment:Critical value for t est(s):K Results called to and readback by:DR MCKNIGHT Person calling:KUS Date: [id number] Chloride 103 96 - 108 mmol/L [facility] Carbon Dioxide 26 22 - 29 mmol/L [facility] Anion Gap 14 12 - 20 [facility] Urea Nitrogen (BUN) 21(H) 9 - 16 mg/dL [facility] Creatinine, Serum 1.19 0.5 - 1.4 mg/dL [facility] Estimated Glomerular Filt Rate >60 [facility] Comment:Chronic Kidney Disea se: Estimated GFR < 60 mL/min/1.97t6Mexuwr Kidney Disease: Estimated GFR < 15 mL/min/1.73m2 Glucose 102 60 - 115 mg/dL [facility] Calcium 8.6 8.4 - 10.2 mg/dL [facility] Bilirubin, Total 0.3 0.0 - 1.0 mg/dL [facility] Aspartate Amino Transferase 31 5 - 37 U/L [facility] Alanine Aminotransferase 14 0 - 40 U/L [facility] Total Protein 7.1 6.5 - 8.0 g/dL [facility] Albumin Level 4.3 3.5 - 5.0 g/dL [facility] Alkaline Phosphatase 89 39 - 117 U/L [facility] Blood Venous blood specimen / Unknown 04/19/2025 4:10 PM EDT 04/19/2025 6:[address] Gna MD LAB BLOOD ORDERABLES Final Re sult [facility] [address] [place] [phone] * (ABNORMAL) Lipid Panel, Standard (05/03/2024 11:52 AM EDT) Triglycerides 196(H) <150 mg/dL [facility] Comment:Desirable Triglyceri de: less than 150 mg/dLBorderline High Triglyceride 150-199 mg/dLHigh Triglyceride: 200-499 mg/dLVery High Triglyceride: greater than or equal to 5OO mg/dL Cholesterol 263(H) <200 mg/dL [facility] Comment:Desirable Cholestero l: less than 200 mg/dLBorderline High Cholesterol: 200-239 mg/dLHigh Cholesterol: greater than 239 mg/dL LDL Cholesterol Calculated 174(H) <100 mg/dL [facility] Comment:Desirable LDL: less than 100 mg/dLNear Optimal/Above Optimal LDL: 110- 129 mg/dLBorderline High LDL: 130-159 mg/dLHigh LDL: 160-189 mg/dLVery High LDL: greater than or equal to 190 mg/dL HDL Cholesterol 50 >40 mg/dL [facility] Comment:Desirable HDL: great er than 40 mg/dL Note: This HDL assay may give artificially low results in patients with liver disease. Blood Venous blood specimen / Unknown 05/03/2024 11:52 AM EDT 05/03/2024 1:[address] Gan MD LAB BLOOD ORDERABLES Final Re sult [facility] [address] [place] [phone] [phone] * Cologuard?? colon cancer screening (07/22/2023 8:44 PM EDT) Pathologist [facility] Cologuard Result Negative Negative 07/31/20 5:33 PM EDT [facility] (CLIA #:[id number]) Comment: NEGATIVE TEST RESULT. A negative Cologuard result indicates a low likelihood that a colorectal cancer (CRC) or advanced adenoma (adenomatous polyps with more advanced pre-malignant features) is present. The chance that a person with a negative Cologuard test has a colorectal cancer is less than 1 in 1500 (negative predictive value >99.9%) or has an advanced adenoma is less than 5.3% (negative predictive value 94.7%). These data are based on a prospective cross-sectional study of 10,000 individuals at average risk for colorectal cancer who were screened with both Cologuard and colonoscopy. (Anastacia Rocha et al, N Engl J Med 2014;370(14):1856-7072) The normal value (reference range) for this assay is negative. COLOGUARD RE-SCREENING RECOMMENDATION: Periodic colorectal cancer screening is an important part of preventive healthcare for asymptomatic individuals at average risk for colorectal cancer. Following a negative Cologuard result, the [place] [employer] and U.S. Multi-Society Task Force screening guidelines recommend a Cologuard re-screening interval of 3 years. References: [place] [employer] Guideline for Colorectal Cancer Screening: https://www.cancer.org/cancer/qmned-goixfa-bdlstb/zhgvmbrav-soekmwcun-lnchrbd/ac s-rec ommendations.html.; Ho CLEMONS, Laure CR, Milena VidesK, Colorectal Cancer Screening: Recommendations for Physicians and Patients from the U.S. Multi-Society Task Force on Colorectal Cancer Screening , Am J Gastroenterology 2017; 112:4164-7371. TEST DESCRIPTION: Composite algorithmic analysis of stool DNA-biomarkers with hemoglobin immunoassay. Quantitative values of individual biomarkers are not reportable and are not associated with individual biomarker result reference ranges. Cologuard is intended for colorectal cancer screening of adults of either sex, 45 years or older, who are at average-risk for colorectal cancer (CRC). Cologuard has been approved for use by the U.S. FDA. The performance of Cologuard was established in a cross sectional study of average-risk adults aged 50-84. Cologuard performance in patients ages 45 to 49 years was estimated by sub-group analysis of near-age groups. Colonoscopies performed for a positive result may find as the most clinically significant lesion: colorectal cancer [4.0%], advanced adenoma (including sessile serrated polyps greater than or equal to 1cm diameter) [20%] or non- advanced adenoma [31%]; or no colorectal neoplasia [45%]. These estimates are derived from a prospective cross-sectional screening study of 10,000 individuals at average risk for colorectal cancer who were screened with both Cologuard and colonoscopy. (Anastacia White al, N Engl J Med 2014;370(14):8591-8605.) Cologuard may produce a false negative or false positive result (no colorectal cancer or precancerous polyp present at colonoscopy follow up). A negative Cologuard test result does not guarantee the absence of CRC or advanced adenoma (pre-cancer). The current Cologuard screening interval is every 3 years. ([place] [employer] and U.S. Multi-Society Task Force). Cologuard performance data in a 10,000 patient pivotal study using colonoscopy as the reference method can be accessed at the following location: www.Likeability.miLibris/results. Additional description of the Cologuard test process, warnings and precautions can be found at www.Velteo.miLibris. Stool specimen (specimen) 07/22/2023 8:44 PM EDT 07/24/2023 11:[address] Gan MD LAB MOLECULAR DIAGNOSTICS ORD ERABLES Final Result [facility] (CLIA #:[id number]) [address] [place] [address], * HEPATITIS C AB W/REFL TO HCV RNA, QN, PCR (03/12/2021 3:37 PM EDT) HEPATITIS C ANTIBODY NON-REACT KEVAN NON-REACT KEVAN [facility] INDEX 0.01 <1.00 [facility] Comment: HCV antibody was non-reactive. There is no laboratory evidence of HCV infection. In most cases, no further action is required. However, if recent HCV exposure is suspected, a test for HCV RNA (test code 66390) is suggested. For additional information please refer to http://Matter and Form.Ninjathat/faq/FFY58j6 (This link is being provided for informational/ educational purposes only.) 03/12/2021 3:37 PM EDT Mohini Maddox TESTING DIRECTOR HISTORICAL/NON ORDERABLE LABS Final Result Performing Organization Address [facility] Co de Phone Number [facility] [address] * HIV 1/2 ANTIGEN/ANTIBODY,FOURTH GENERATION W/RFL (03/12/2021 11:45 AM EDT) Pathologist [facility] HIV-1/2 ANTIGEN AND ANTIBODIES, 4TH GENERATION W/ REFLEX TNP [facility] Comment: TEST NOT PERFORMED Duplicate test. 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
--- OUTSIDE RECORDS SUMMARY | 2025-06-10 17:41 | XMS_ITS | Encounter Summary ---
Author Organization [employer] Address [address] [place] [address] Care Team Providers Care Surface Plate Finisher Name Role Phone Ave Gan MD Primary Care Provider [phone] Reason for Visit * Reason Onset Date Comments appt prio authorization srp 06/20/2023 Encounter Details Date Type Department Care Team (Late st Contact Info) Description 06/20/2023 Telephone [facility] [address] [place] [address] Darius Wilson BDS [address] [place] [address] appt prio authorization srp Social History Tobacco Use Types Packs/Day Years Used Date Smoking Tobacco: Never Passive Smoke Exposure: Never Smokeless Tobacco: Never Depression Answer Date Recorded Patient Health Questionnaire-9 Score 0 09/27/2022 Depression Answer Date Recorded Patient Health Questionnaire-2 Score 0 09/27/2022 Sex and Gender Information Value Date Recorded Sex Assigned at Male 07/29/2022 10:21 AM EDT Legal Sex Male 10:21 AM EDT Gender Identity Male 07/29/2022 10:21 AM EDT Sexual Orientation Straight 07/29/2022 10 :21 AM EDT documented as of this encounter Miscellaneous Notes * Telephone Encounter - Kary Jimenes - 06/20/2023 1:43 PM EDT Patient called in to checki n on status appt for srp. I did not see an approval or denial scanned into patient chart. He states he has gum disease and that the last time when he had MH he also waiteda long time to be able to get in. He is looking to speak with management about whether or not he will be seen and why the long wait for this visit and if the insurance has sent in an approval or denial for treatment. documented in this encounter Plan of Treatment Upcoming Encounters Date Type Department Care Team (Late st Contact Info) Description 06/23/2025 4:00 PM EDT Office Visit [facility] [address] [place] [address] Jaxon Redmond MD [address] [place], [place] [phone] documented as of this encounter Visit Diagnoses Not on filedocumented in this encounter Additional Health Concerns Assessment Noted Time PHQ-9 Depression Total Score: 0 09/27/20 22 3:14 PM EST documented as of this encounter Care Teams Surface Plate Finisher Relationship Specialty Start Date End Date Ave Gan MD [address] [place] [address] PCP - General Family Medicine 05/30/21 documented as of this encounter
--- OUTSIDE RECORDS SUMMARY | 2025-06-10 17:41 | XMS_ITS | Encounter Summary ---
Author Organization [employer] Address [address] [place] [id number] Care Team Providers Care Corrections Sergeant Name Role Phone Ave Gan MD Primary Care Provider [phone] Reason for Visit * Reason Onset Date Comments Call Back Request 11/25/2023 Encounter Details Date Type Department Care Team ([facility] Contact Info) Description 11/25/2023 Telephone [facility] [address] [place], [place] [phone] Gan MD [address] [place] [address] Call Back Request Social History Tobacco Use Types Packs/Day Years [...] encounter Miscellaneous Notes * Telephone Encounter - Kaylee Andi - 11/25/2023 3:36 PM EST Tc from pt requesting for nurse to call sister in regards to BP medication. Please contact sister at [phone] documented in this encounter Plan of Treatment Upcoming Encounters Date Type Department Care Team (Late st Contact Info) Description 06/23/2025 4:00 PM EDT Office Visit [facility] [address] [place] [address] Jaxon Redmond MD [address] [place] [address] documented as of this encounter Visit Diagnoses Not on filedocumented in this encounter Additional Health Concerns Assessment Noted Time PHQ-9 Depression Total Score: 23 024 1:42 PM EST documented as of this encounter Care Teams Corrections Sergeant Relationship Specialty Start Date End Date Ave Gan MD [address] [place] [address] PCP - General Family Medicine 05/30/21 documented as of this encounter
--- OUTSIDE RECORDS SUMMARY | 2025-06-10 17:41 | XMS_ITS | Encounter Summary ---
Author Organization [employer] Address [address] [place] [address] Care Team Providers Care Prints And Drawings Curator Name Role Phone Ave Gan MD Primary Care Provider [phone] Reason for Visit * Reason Comments Med Refill Encounter Details Date Type Department Care Team (Late Contact Info) Description 11/27/2022 Refill [facility] CHC MED & PEDS [address] [place] [address] Ave Gan MD [address] [place] [address] Vitamin D deficiency (Primary Dx) Social History Tobacco Use Types Packs/Day Years [...] Encounters Date Type Department Care Team (Late Contact Info) Description 06/23/2025 4:00 PM EDT Office Visit [facility] CHC MED & PEDS [address] [place] [address] Jaxon Redmond MD 505 [place], [place] [phone] documented as of this encounter Visit Diagnoses Diagnosis Vitamin D deficiency- Primary documented in this encounter Additional Health Concerns Assessment Noted Time PHQ-9 Depression Total Score: 0 09/27/20 22 3:14 PM EST documented as of this encounter Care Teams Prints And Drawings Curator Relationship Specialty Start Date End Date Ave Gan MD [address] [place] [address] PCP - General Family Medicine 05/30/21 documented as of this encounter
--- OUTSIDE RECORDS SUMMARY | 2025-06-10 17:41 | XMS_ITS | Encounter Summary ---
Author Organization [employer] Address [address] [place] [address] [place] [address] Care Team Providers Care Bone Drier Operator Name Role Phone Ave Gan MD Primary Care Provider Reason for Visit * Reason Comments Med Refill Encounter Details Date Type Department Care Team ([facility] st Contact Info) Description 05/27/2025 Refill [facility] CHC MED & PEDS [address] [place], [place] [phone] Ave Gan MD 505 [place] [address] Hypokalemia Social History Tobacco Use Types Packs/Day Years [...] Description 06/23/2025 4:00 PM EDT Office Visit [facility] CHC MED & PEDS [address] [place] [address] Jaxon Redmond MD [address] [place] [address] documented as of this encounter Visit Diagnoses Diagnosis Hypokalemia Hypopotassemia documented in this encounter Additional Health Concerns Assessment Noted Time PHQ-9 Depression Total Score: 0 04/18/20 25 4:11 PM EDT documented as of this encounter Care Teams Bone Drier Operator Relationship Specialty Start Date End Date Ave Gan MD [address] [place] [address] PCP - General Family Medicine 05/30/21 documented as of this encounter
--- OUTSIDE RECORDS SUMMARY | 2025-06-10 17:41 | XMS_ITS | Encounter Summary ---
Author Organization [employer] Address [address] [place] [address] Care Team Providers Care Trade Union Official Name Role Phone Ave Gan MD Primary Care Provider [phone] Encounter Details Date Type Department Care Team ([facility] st Contact Info) Description 01/19/2025 Orders Only [facility] MEDICINE [address] [place] [address] Jaxon Redmond MD 505 [place] [address] Social History Tobacco Use Types Packs/Day Years [...] Description 06/23/2025 4:00 PM EDT Office Visit [facility] CHC MED & PEDS [address] [place] [address] Jaxon Redmond MD [address] [place] [address] documented as of this encounter Visit Diagnoses Not on filedocumented in this encounter Additional Health Concerns Assessment Noted Time PHQ-9 Depression Total Score: 23 024 1:42 PM EST documented as of this encounter Care Teams Trade Union Official Relationship Specialty Start Date End Date Ave Gan MD [address] [place] [address] PCP - General Family Medicine 05/30/21 documented as of this encounter
--- OUTSIDE RECORDS SUMMARY | 2025-06-10 17:41 | XMS_ITS | Encounter Summary ---
Author Organization [employer] Address [address] [place] [address] 7 [place] [address] Care Team Providers Care Inspector Advanced Composite Name Role Phone Ave Gan MD Primary Care Provider [phone] Reason for Visit * Reason Comments Med Refill Encounter Details Date Type Department Care Team ([facility] st Contact Info) Description 03/03/2025 Refill [facility] MEDICINE [address] [place] [address] Ave Gan MD [address] [place] [address] Social History Tobacco Use Types Packs/Day Years [...] Description 06/23/2025 4:00 PM EDT Office Visit [facility] MED & PEDS [address] [place] [address] DominguezJaxon Tamayo MD 505 [place] [address] documented as of this encounter Visit Diagnoses Not on filedocumented in this encounter Additional Health Concerns Assessment Noted Time PHQ-9 Depression Total Score: 23 024 1:42 PM EST documented as of this encounter Care Teams Inspector Advanced Composite Relationship Specialty Start Date End Date Ave Gan MD 230 [place] [address] PCP - General Family Medicine 05/30/21 documented as of this encounter
--- OUTSIDE RECORDS SUMMARY | 2025-06-10 17:41 | XMS_ITS | Encounter Summary ---
Author Organization [employer] Address [address] [place] [address] 7 [place] [address] Care Team Providers Care Leadership Development Instructor Name Role Phone Ave Gan MD Primary Care Provider [phone] Encounter Details Date Type Department Care Team ([facility] st Contact Info) Description 06/29/2024 Orders Only [facility] CHC MED & PEDS [address] [place], [place] [phone] Mohini Pierce FNP [address] [place] [address] Primary hypertension (Primary Dx) Social History Tobacco Use Types [...] Description 06/23/2025 4:00 PM EDT Office Visit [facility] CHC MED & PEDS [address] [place] [address] Jaxon Redmond MD 505 [place] [address] Scheduled Orders Name Type Priority Associated Diagnoses Orde r Schedule Basic Metabolic Panel Lab Routine Primary hypertension Expected: 06/29/2024 (Approximate), Expires: 06/29/2025 documented as of this encounter Visit Diagnoses Diagnosis Primary hypertension- Primary Unspecified essential hypertension documented in this encounter Additional Health Concerns Assessment Noted Time PHQ-9 Depression Total Score: 23 024 1:42 PM EST documented as of this encounter Care Teams Leadership Development Instructor Relationship Specialty Start Date End Date Ave Gan MD [address] [place] [address] PCP - General Family Medicine 05/30/21 documented as of this encounter
--- OUTSIDE RECORDS SUMMARY | 2025-06-10 17:41 | XMS_ITS | Encounter Summary ---
Author Organization [employer] Address [address] [place] [address] Care Team Providers Care Unload Associate Name Role Phone Ave Gna MD Primary Care Provider [phone] Reason for Visit * Reason Onset Date Comments Referral 11/24/2023 Encounter Details Date Type Department Care Team ([facility] st Contact Info) Description 11/24/2023 Telephone [facility] CHC MED & PEDS [address] [place], [place] [phone] Ave Gan MD 505 [place] [address] Referral Social History Tobacco Use Types Packs/Day Years [...] Telephone Encounter - Lise Summers - 11/24/2023 10:34 AM EST TC from pt requesting a referral to a pediatrist . documented in this encounter Plan of Treatment Upcoming Encounters Date Type Department Care Team (Late st Contact Info) Description 06/23/2025 4:00 PM EDT Office Visit [facility] MED & PEDS [address] [place] [address] Jaxon Redmond MD 505 [place] [address] documented as of this encounter Visit Diagnoses Not on filedocumented in this encounter Additional Health Concerns Assessment Noted Time PHQ-9 Depression Total Score: 23 024 1:42 PM EST documented as of this encounter Care Teams Unload Associate Relationship Specialty Start Date End Date Ave Gan MD [address] [place] [address] PCP - General Family Medicine 05/30/21 documented as of this encounter
== END 2025-06-10 15:56 | disposition home or self-care (01) ==
LOC: HO.HKA 15:24
PROVIDERS: PCP Family Medicine; Referring Provider Family Medicine; Visit Provider Internal Medicine Nephrology
DX: I10 Essential (primary) hypertension (principal); E87.6 Hypokalemia
CPT/HCPCS: 99204

== ENCOUNTER → 2025-06-10 15:23 | Outpatient (BNVA) | payer OTHER, SELFPAY | PROVIDERS: PCP Family Medicine; Referring Provider Family Medicine; Visit Provider Internal Medicine Nephrology | DX: I10 Essential (primary) hypertension (principal); E87.6 Hypokalemia | CPT/HCPCS: 99202 ==

== ENCOUNTER 2025-08-22 13:32 | Outpatient (REF) | payer OTHER, SELFPAY ==
--- OUTSIDE RECORDS SUMMARY | 2025-08-22 11:30 | XMS_ITS | Encounter Summary ---
Author Organization [employer] Address [address] [place] [address] Care Team Providers Care Forklift Mechanic Name Role Phone Ave Gan MD Primary Care Provider [phone] Reason for Visit * Reason Comments Hypertension Encounter Details Date Type Department Care Team ([facility] Contact Info) Description 08/22/2025 11:30 AM EST Office Visit [facility] CHC MED & PEDS [address] [place], [place] [phone] Ave Gan MD 505 [place] [address] Encounter for immunization (Primary Dx); Onychomycosis; Primary hypertension; Class 1 obesity due to excess calories with body mass index (BMI) of 33.0 to 33.9 in adult, unspecified whether serious comorbidity present Social History Tobacco Use Types Packs/Day Years [...] AM EDT documented as of this encounter Last Filed Vital Signs Vital Sign Reading Time Taken Comments Blood Pressure 123/84 08/22/2025 12:00 PM EST Pulse 70 08/22/2025 12:00 PM EST Temperature 36.6 C (97.9 F) 08/22/2025 12:00 PM EST Respiratory Rate - - Oxygen Saturation - - Inhaled Oxygen Concentration - - Weight 97.2 kg (214 lb 4 oz) 08/22/2025 12:00 PM EST Height 177.8 cm (5' 10 ) 08/22/2025 12:00 PM EST Body Mass Index 30.74 08/22/2025 12:00 PM EST documented in this encounter Progress Notes * Ave Gan MD - 08/22/2025 11:30 AM EST Subjective Patient ID: Clemente Zepeda is a 55 y.o. male who presents for Hypertension. 55 y.o. here to follow-up on hypertension and requesting refill for anti-fungal med - reports compliance with meds - Clemente's father is currently in [facility] for the last 2 months, he is not doing well. - Clemente has a new job and is working during the night Hypertension This is a chronic problem. The current episode started more than 1 year ago. The problem has been waxing and waning since onset. The problem is controlled. Associated symptoms include anxiety. Pertinent negatives include no blurred vision, chest pain, headaches, malaise/fatigue, neck pain, palpitations, peripheral edema or shortness of breath. Risk factors for coronary artery disease include family history, male gender, obesity and stress. Past treatments include calcium channel blockers and diuretics. The current treatment provides significant improvement. Compliance problems include medication side effects, medication cost, diet and psychosocial issues. There is no history of angina, kidney disease, heart failure or retinopathy. Review of Systems Constitutional: Negative for malaise/fatigue. Eyes: Negative for blurred vision. Respiratory: Negative for shortness of breath. Cardiovascular: Negative for chest pain and palpitations. Musculoskeletal: Negative for neck pain. Neurological: Negative for headaches. Objective BP 123/84 (BP Location: Right arm, Patient Position: Sitting, BP Cuff Size: Adult) Pulse 70 Temp 97.9 ??F (36.6 ??C) (Oral) Ht 5' 10 (1.778 m) Wt 214 lb 4 oz (97.2 kg) BMI 30.74 kg/m?? Physical Exam Constitutional: General: He is not in acute distress. Appearance: He is not ill-appearing. HENT: Head: Normocephalic and atraumatic. Nose: No congestion. Mouth/Throat: Mouth: Mucous membranes are moist. Eyes: Extraocular Movements: Extraocular movements intact. Pupils: Pupils are equal, round, and reactive to light. Cardiovascular: Rate and Rhythm: Normal rate and regular rhythm. Pulmonary: Effort: Pulmonary effort is normal. No respiratory distress. Breath sounds: Normal breath sounds. Abdominal: General: Abdomen is flat. Musculoskeletal: Cervical back: Normal range of motion. Neurological: General: No focal deficit present. Mental Status: He is alert. Psychiatric: Mood and Affect: Mood is depressed. Speech: Speech normal. Assessment/Plan Problem List Items Addressed This Visit Hypertensive disorder Controlled. Target < 130/80 mmHg. Doing well. Denies med side effects. Will check potassium, patient concern of cost of labs. Followup 3 mo Obesity due to excess calories Not taking GLP-1. Cont lifestyle interventions, patient waiting to see if legislation will decr cost of meds. Onychomycosis At this moment reports some improvement, if continues with symptoms than will need to send to derm to get biopsy to r/o pathology of nail abnormality. At this point will check LFTs, if normal will send trial of meds, it persistent after this trial will than refer to derm. Relevant Orders Comprehensive Metabolic Panel Other Visit Diagnoses Encounter for immunization - Primary Relevant Orders TDAP VACCINE 7 yrs + (Completed) documented in this encounter Miscellaneous Notes * Assessment & Plan Note - Ave Gan MD - 08/22/2025 12:07 PM EST Associated Problem(s): Obesity due to excess calories Not taking GLP-1. Cont lifestyle interventions, patient waiting to see if legislation will decr cost of meds. * Assessment & Plan Note - Ave Gan MD - 08/22/2025 12:06 PM EST Associated Problem(s): Onychomycosis At this moment reports some improvement, if continues with symptoms than will need to send to derm to get biopsy to r/o pathology of nail abnormality. At this point will check LFTs, if normal will send trial of meds, it persistent after this trial will than refer to derm. * Assessment & Plan Note - Ave Gan MD - 08/22/2025 12:05 PM EST Associated Problem(s): Hypertensive disorder Controlled. Target < 130/80 mmHg. Doing well. Denies med side effects. Will check potassium, patient concern of cost of labs. Followup 3 mo documented in this encounter Plan of Treatment Upcoming Encounters Date Type Department Care Team (Late st Contact Info) Description 09/02/2025 10:30 AM EST Clinical Support [facility] MED & PEDS [address] [place] [address] documented as of this encounter Procedures Procedure Name Priority Date/Time Associated Diagnosis Comments COMPREHENSIVE METABOLIC PANEL Routine 08/22/2025 1:36 PM EST Onychomycosis documented in this encounter Results * (ABNORMAL) Comprehensive Metabolic Panel (08/22/2025 1:36 PM EST) Sodium 139 135 - 145 mmol/L [facility] Potassium 4.5 3.3 - 5.1 mmol/L [facility] Comment:Mild Hemolysis.Inter pret result with caution Chloride 106 96 - 108 mmol/L [facility] Carbon Dioxide 22 22 - 29 mmol/L [facility] Anion Gap 16 12 - 20 [facility] Urea Nitrogen (BUN) 14 9 - 16 mg/dL [facility] Creatinine, Serum 0.88 0.5 - 1.4 mg/dL [facility] Estimated Glomerular Filt Rate >60 [facility] Comment:Chronic Kidney Disea se: Estimated GFR < 60 mL/min/[id number] Kidney Disease: Estimated GFR < 15 mL/min/1.73m2 Glucose 146(H) 60 - 115 mg/dL [facility] Calcium 9.2 8.4 - 10.2 mg/dL [facility] Bilirubin, Total 0.3 0.0 - 1.0 mg/dL [facility] Aspartate Amino Transferase 33 5 - 37 U/L [facility] Comment:Mild Hemolysis.Inter pret result with caution Alanine Aminotransferase 21 0 - 40 U/L [facility] Total Protein 8.0 6.5 - 8.0 g/dL [facility] Comment:Mild Hemolysis.Inter pret result with caution Albumin Level 4.7 3.5 - 5.0 g/dL [facility] Alkaline Phosphatase 79 39 - 117 U/L [facility] Blood Venous blood specimen / Unknown 08/22/2025 1:36 PM EST 08/22/2025 3:[address] Gan MD LAB BLOOD ORDERABLES Final Re sult [facility] [address] [place] [address] [phone] documented in this encounter Visit Diagnoses Diagnosis Encounter for immunization- Primary Onychomycosis Dermatophytosis of nail Primary hypertension Unspecified essential hypertension Class 1 obesity due to excess calories with body mass index (BMI) of 33.0 to 33.9 in adult, unspecified whether serious comorbidity present documented in this encounter Additional Health Concerns Assessment Noted Time PHQ-9 Depression Total Score: 0 04/18/20 25 4:11 PM EDT documented as of this encounter Care Teams Forklift Mechanic Relationship Specialty Start Date End Date Ave Gan MD [address] [place] [address] PCP - General Family Medicine 05/30/21 documented as of this encounter
[2025-08-22 17:21] LABS: Alanine Aminotransferase 21 U/L (0-40); Albumin Level 4.7 g/dL (3.5-5.0); Alkaline Phosphatase 79 U/L (39-117); Anion Gap 16 (12-20); Aspartate Amino Transferase 33 U/L (5-37); Blood Urea Nitrogen 14 mg/dL (9-16); Calcium 9.2 mg/dL (8.4-10.2); Carbon Dioxide 22 mmol/L (22-29); Chloride 106 mmol/L (96-108); Estimated Glomerular Filt Rate > 60; Potassium 4.5 mmol/L (3.3-5.1); Sodium 139 mmol/L (135-145); Total Protein 8.0 g/dL (6.5-8.0)
--- OUTSIDE RECORDS SUMMARY | 2025-08-22 18:21 | XMS_ITS | Encounter Summary ---
Author Organization [employer] Address [address] [place] [address] Care Team Providers Care Patch Press Operator Name Role Phone Ave Gan MD Primary Care Provider [phone] Encounter Details Date Type Department Care Team (Latest Contact Info) Description 03/27/2021 Abstract [facility] CONVERSIONS Dental, Provider, DDS Social History Tobacco [...] Description 09/02/2025 10:30 AM EST Clinical Support [facility] CHC MED & PEDS [address] [place] [address] documented as of this encounter Visit Diagnoses Not on filedocumented in this encounter Care Teams Patch Press Operator Relationship Specialty Start Date End Date Ave Gan MD [address] [place] [address] PCP - General Family Medicine 05/30/21 documented as of this encounter
--- OUTSIDE RECORDS SUMMARY | 2025-08-22 18:21 | XMS_ITS | Encounter Summary ---
Author Organization [email or web address] Address [address] [place] [address] Care Team Providers Care Supervisor Coil Winding Name Role Phone Ave Gan MD Primary Care Provider [phone] Encounter Details Date Type Department Care Team (Latest Contact Info) Description 07/22/2022 Abstract [facility] CONVERSIONS Dental, Provider, DDS Social History [...] Description 09/02/2025 10:30 AM EST Clinical Support [facility] CHC MED & PEDS [address] [place] [address] documented as of this encounter Visit Diagnoses Not on filedocumented in this encounter Care Teams Supervisor Coil Winding Relationship Specialty Start Date End Date Ave Gan MD [address] [place] [address] PCP - General Family Medicine 05/30/21 documented as of this encounter
--- OUTSIDE RECORDS SUMMARY | 2025-08-22 18:21 | XMS_ITS | Encounter Summary ---
Author Organization [employer] Address [address] [place] [address] [place] [address] Care Team Providers Care Medical Manager Name Role Phone Ave Gan MD Primary Care Provider [phone] Reason for Visit * Reason Onset Date Comments Medication Question 10/26/2024 Encounter Details Date Type Department Care Team ([facility] st Contact Info) Description 10/26/2024 Telephone [facility] MEDICINE [address] [place] [address] Ave Gan MD [address] [place] [address] Medication Question Social History Tobacco Use Types [...] Description 09/02/2025 10:30 AM EST Clinical Support [facility] CH[facility] MED & PEDS [address] [place] [address] documented as of this encounter Visit Diagnoses Not on filedocumented in this encounter Additional Health Concerns Assessment Noted Time PHQ-9 Depression Total Score: 23 024 1:42 PM EST documented as of this encounter Care Teams Medical Manager Relationship Specialty Start Date End Date Ave Gan MD [address] [place] [address] PCP - General Family Medicine 05/30/21 documented as of this encounter
--- OUTSIDE RECORDS SUMMARY | 2025-08-22 18:21 | XMS_ITS | Encounter Summary ---
Author Organization [employer] Address [address] [place] [address] Care Team Providers Care Health Safety Coordinator Name Role Phone Ave Gan MD Primary Care Provider [phone] Encounter Details Date Type Department Care Team ([facility] st Contact Info) Description 01/19/2025 Orders Only [facility] MEDICINE [address] [place] [address] Jaxon Redmond MD [address] [place] [address] Social History Tobacco Use Types Packs/Day Years [...] 10:30 AM EST Clinical Support [facility] MED & PEDS [address] [place] [address] documented as of this encounter Visit Diagnoses Not on filedocumented in this encounter Additional Health Concerns Assessment Noted Time PHQ-9 Depression Total Score: 23 024 1:42 PM EST documented as of this encounter Care Teams Health Safety Coordinator Relationship Specialty Start Date End Date Ave Gan MD [address] [place] [address] PCP - General Family Medicine 05/30/21 documented as of this encounter
--- OUTSIDE RECORDS SUMMARY | 2025-08-22 18:22 | XMS_ITS | Encounter Summary ---
Author Organization [employer] Address [address] [place] [address] Care Team Providers Care Broadcast Technician Name Role Phone Ave Gan MD Primary Care Provider [phone] Reason for Visit * Reason Onset Date Comments Results 11/24/2023 Encounter Details Date Type Department Care Team ([facility] st Contact Info) Description 11/24/2023 Telephone [facility] CHC MED & PEDS [address] [place], [place] [phone] Ave Gan MD [address] [place] [address] Results Social History Tobacco Use Types Packs/Day [...] when done: about a week ago Facility: [facility] documented in this encounter Plan of Treatment Upcoming Encounters Date Type Department Care Team (Late st Contact Info) Description 09/02/2025 10:30 AM EST Clinical Support [facility] MED & PEDS [address] [place] [address] documented as of this encounter Visit Diagnoses Not on filedocumented in this encounter Additional Health Concerns Assessment Noted Time PHQ-9 Depression Total Score: 23 024 1:42 PM EST documented as of this encounter Care Teams Broadcast Technician Relationship Specialty Start Date End Date Ave Gan MD [address] [place] [address] PCP - General Family Medicine 05/30/21 documented as of this encounter
--- OUTSIDE RECORDS SUMMARY | 2025-08-22 18:22 | XMS_ITS | Encounter Summary ---
Author Organization [employer] Address [address] [place] [address] Care Team Providers Care Boatswain'S Mate Name Role Phone Ave Gan MD Primary Care Provider [phone] Reason for Visit * Reason Onset Date Comments appt prio authorization srp 06/20/2023 Encounter Details Date Type Department Care Team (Late st Contact Info) Description 06/20/2023 Telephone [facility] [address] [place] [address] Darius Wilson BDS [address] [place] [address] appt prio authorization srp Social History Tobacco [...] Description 09/02/2025 10:30 AM EST Clinical Support [facility] MED & PEDS [address] [place] [address] documented as of this encounter Visit Diagnoses Not on filedocumented in this encounter Additional Health Concerns Assessment Noted Time PHQ-9 Depression Total Score: 0 09/27/20 22 3:14 PM EST documented as of this encounter Care Teams Boatswain'S Mate Relationship Specialty Start Date End Date Ave Gan MD [address] [place] [address] PCP - General Family Medicine 05/30/21 documented as of this encounter
--- OUTSIDE RECORDS SUMMARY | 2025-08-22 18:22 | XMS_ITS | Encounter Summary ---
Author Organization [employer] Address [address] [place] [address] Care Team Providers Care Extrusion Die Repairer Name Role Phone Ave Gan MD Primary Care Provider [phone] Reason for Visit * Reason Comments Med Refill Encounter Details Date Type Department Care Team (Late st Contact Info) Description 11/27/2022 Refill [facility] MED & PEDS [address] [place] [address] Ave Gan MD [address] [place] [address] Vitamin D deficiency (Primary Dx) Social History [...] Description 09/02/2025 10:30 AM EST Clinical Support [facility] MED & PEDS [address] [place] [address] documented as of this encounter Visit Diagnoses Diagnosis Vitamin D deficiency- Primary documented in this encounter Additional Health Concerns Assessment Noted Time PHQ-9 Depression Total Score: 0 09/27/20 22 3:14 PM EST documented as of this encounter Care Teams Extrusion Die Repairer Relationship Specialty Start Date End Date Ave Gan MD [address] [place] [address] PCP - General Family Medicine 05/30/21 documented as of this encounter
--- OUTSIDE RECORDS SUMMARY | 2025-08-22 18:22 | XMS_ITS | Clinical Summary ---
Author Organization [employer] Address [address] [place] [address] Care Team Providers Care Manager Consumer Name Role Phone Ave Gan MD Primary Care Provider [phone] Allergies Active Allergy Reactions Criticality Noted Date Comments Valsartan Itching High 09/09/2024 Medications * This document contains information received from the source organization and may not represent a complete record from that organization. cyanocobalamin (Vitamin B-12) 1000 MCG tablet Take 1 tablet by mouth at bed time. 1 Active Ygbgaa-Ktioi-Xwz rol-Fish Oil (Glucosamine Chondroitin Plus) capsule Take 1 capsule once a day PO 2 Active pantoprazole (ProtoNix) 20 MG EC tablet take 1 tablet by oral qdaily 2 Active sennosides (Senokot) 8.6 MG tablet Take 2 tablets by mouth at bed time. 2 Active Procto-Med HC 2.5 % rectal cream APPLY RECTALLY TWICE DAILY NEEDED FOR HEMORRHOIDS 3 Active Bisacodyl EC 5 MG EC tablet 3 Active triamcinolone (Kenalog) 0.5 % ointment Apply topically 2 times daily. 90 g 3 Active oxymetazoline (Afrin Nasal [place]) 0.05 % nasal spray Administer 2 sprays into each nostril every 12 (twelve) hours if needed for congestion for up to 2 days. Do not use for more than 3 days. 30 mL 4 Active Blood Pressure kit 1 Units in the morning. 1 kit 4 Active prazosin (Minipress) 1 MG capsule 4 Active ARIPiprazole (Abilify) 15 MG tablet Take 15 mg by mouth at bedtime. 4 Active sertraline (Zoloft) 100 MG tablet Take 100 mg by mouth in the morning. 4 Active cholecalciferol VITAMIN D (Vitamin D-3) 50 MCG (2000 UT) tablet Take 1 tablet (50 mcg) by mouth Once per day. 90 tablet 1 4 Active Blood Pressure kit 1 Units Once per day. 1 kit 4 Active rosuvastatin (Crestor) 40 MG tablet Take 1 tablet (40 mg) by mouth in the morning. 90 tablet 1 5 Active Acetaminophen 500 MG capsule Take one to two tablets as needed for fever or pain every 6 hours 30 capsule 5 Active busPIRone (Buspar) 5 MG tablet Take 1 tablet (5 mg) by mouth if needed in the morning and at bedtime (anxiety). 60 tablet 3 5 Active cetirizine (ZyrTEC) 10 MG tablet Take 1 tablet (10 mg) by mouth Once per day. 90 tablet 3 5 Active fluticasone (Flonase) 50 MCG/ACT nasal spray Administer 1 spray into each nostril 2 times daily. Shake gently. Before first use, prime pump. After use, clean tip and replace cap. 16 g 1 5 Active folic acid (Folvite) 800 MCG tablet Take 1 tablet (0.8 mg) by mouth Once per day. 120 tablet 3 5 Active Magnesium Chloride 64 MG tablet Take 64 mg by mouth at bedtime. 120 tablet 3 5 Active QUEtiapine (SEROquel) 50 MG tablet Take 0.5 tablets (25 mg) by mouth at bedtime. 15 tablet 5 Active Tirzepatide-Weig ht Management (Zepbound) 10 MG/0.5ML solution auto-injector Inject 0.5 mL (10 mg) under the skin 1 (one) time per week. 2 mL 1 5 Active Multiple Vitamin (Multi-Vitamin) tablet Take 1 tablet by mouth Once per day. 90 tablet 3 08/16/2025 12:41 PM EST 5 Active spironolactone (Aldactone) 25 MG tabletIndication s:Primary hypertension TAKE 1 TABLET BY MOUTH EVERY DAY 90 tablet 1 08/16/2025 12:41 PM EST 5 Active amLODIPine (Norvasc) 10 MG tablet Take 1 tablet (10 mg) by mouth Once per day. 90 tablet 1 08/16/2025 12:41 PM EST 5 Active terbinafine (LamISIL) 250 MG tablet Take 1 tablet (250 mg) by mouth Once per day. 84 tablet 5 Active Blood Pressure kit 1 kit Once per day. 1 kit 5 Active Active Problems Patient Care Coordination No te Formatting of this note migh t be different from the original. Pt has severe gingival enlargement. Dr Darius [place] recommends changing BP med from calcium channel leyda to try to decrease gingival enlargement. Pt has periodontal disease. Stressed importance of improving oral hygiene by brushing with rotary style toothbrush (Oral B), daily flossing and waterpik. Scaling and root planing last done 07/22/2023, pt not eligible until after 06/2026. Problem Noted Date Diagnosed Date Onychomycosis 08/22/2025 Assessment & Plan (08/22/2025 12:06 PM EST): At this moment reports some improvement, if continues with symptoms than will need to send to derm to get biopsy to r/o pathology of nail abnormality. At this point will check LFTs, if normal will send trial of meds, it persistent after this trial will than refer to derm. 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) 11/03/2023 Assessment & Plan (11/10/2023 2:29 PM [...] intervention , Patient to [facility] team as needed, Patient to engage in [...] issues, financial concern, relationship issues, and seeking corporate legal assistant. PLAN: New/Additional Services needed Off-site services for Behavioral Health Integration Plan External OP therapy referral and OP psychiatry Referral Patient Self Plan Patient to utilize skills provided in intervention , Patient to reach out to [facility] team as needed, and Patient to reach out to [facility] as needed Severe anxiety 11/03/2023 Numbness and [...] -Refill ibuprofen sent to pharmacy -Referral to [facility] for further eval and tx - consideration of steroid injection -If long wait time, consider referral to [facility] Rhinosinusitis 11/25/2022 Assessment & Plan (11/10/2023 3:24 [...] to excess calories 09/27/2022 Assessment & Plan (08/22/2025 12:07 PM EST): Not taking GLP-1. Cont lifestyle interventions, patient waiting to see if legislation will decr cost of meds. Assessment & Plan (01/18/2025 8:21 PM EDT): [...] recommended reduction of 20-30% of maintenance calories; small machine bindery operator referral offered. Recommended to decrease soda and sugary beverage consumption. Recommended at least 20 g per meal of protein to assist with satiety. Recommended at least 150 min/week of moderate intensity exercise. Assessment & Plan (04/29/2024 3:34 PM EDT): Discussed calorie deficit, recommended reduction of 20-30% of maintenance calories; small machine bindery operator referral offered. Recommended to decrease soda and [...] recommended reduction of 20-30% of maintenance calories; small machine bindery operator referral offered. Recommended to decrease soda and [...] 01/28/2018 Hypertensive disorder 01/08/2017 Assessment & Plan (08/22/2025 12:06 PM EST): Controlled. Target < 130/80 mmHg. Doing well. Denies med side effects. Will check potassium, patient concern of cost of labs. Followup 3 mo Assessment & Plan (07/01/2024 11:24 AM EDT): [...] to avoid missing doses, will switch to [id number] Assessment & Plan (12/08/2023 6:09 PM EDT): [...] Center 11/27/2023 3:[address] MD [facility] 12/11/2023 2:[address] Gan MD [facility] Assessment & Plan (11/10/2023 3:23 PM EST): [...] Encounters Date Type Department Care Team Description 08/22/2025 11:30 AM EST Office Visit [facility] [address] [place] [address] Ave Gan MD Encounter for immunization (Primary Dx); Onychomycosis; Primary hypertension; Class 1 obesity due to excess calories with body mass index (BMI) of 33.0 to 33.9 in adult, unspecified whether serious comorbidity present 08/22/2025 Travel 08/16/2025 Telephone [facility] [address] [place] [address] Ave Gan MD Med Refill 06/28/2025 Telephone [facility] [address] [place] [address] Ave Gan MD 06/28/2025 Travel 05/27/2025 Refill [facility] [address] [place] [address] Ave Gan MD Hypokalemia from Last 3 Months Immunizations Immunization Administration Dates Next Due [facility] SARS-CoV-2 Vaccination 01/04/2021 Td (adult), 5 Lf tetanus tox oid, preservative free, adsorbed 07/07/2016 Tdap 08/22/2025 Social History Tobacco Use Types Packs/Day Years [...] F) 08/22/2025 12:00 PM EST Respiratory Rate 16 05/19/2025 3:14 PM EDT Oxygen Saturation 96% 05/19/2025 3:14 PM EDT Inhaled Oxygen Concentration - - Weight 97.2 kg (214 lb 4 oz) 08/22/2025 12:00 PM EST Height 177.8 cm (5' 10 ) 08/22/2025 12:00 PM EST Body Mass Index 30.74 08/22/2025 12:00 PM EST Plan of Treatment Upcoming Encounters Date Type Department Care Team (Late st Contact Info) Description 09/02/2025 10:30 AM EST Clinical Support [facility] [address], [place] [phone] Health Maintenance Due Date Last Done Comments CT Colonography 1972 Colonoscopy 1972 FIT 1972 Sigmoidoscopy 1972 Disability Screening 1972 Hepatitis B Vaccines (1 of 3 - 19+ 3-dose series) 1991 Pneumococcal Vaccine: 50+ Years (1 of 1 - PCV) 2022 Zoster Vaccines (1 of 2) 2022 Dental X-Ray: Full Mouth 03/16/2024 021, 03/15/2021, 02/10/2018 FOBT 07/22/2024 07/22/2023 Dental Oral Exam 02/09/2025 08/11/2024, , 03/15/2021, Additional history exists Dental Prophylaxis 02/09/2025 08/11/2024, 0 05/26/2023, 07/22/2022, Additional history exists COVID-19 Vaccine (2 - season) 2025 01/04/2021 Influenza Vaccine (#1) 2025 Dental X-Ray: Bitewings 08/12/2025 08/11/20 24, 07/22/2022, 03/15/2021, Additional history exists Alcohol/Substance Use Screening 04/18/2026 04/18/2025 Depression Screening 04/18/2026 04/18/2025, 04/18/20 25 SDOH Screening 04/18/2026 04/18/2025 Colorectal Cancer Screening 07/22/2026 FIT DNA/Cologuard 07/22/2026 07/22/2023 Tobacco Screening 08/22/2026 08/22/2025 Lipid Panel 05/03/2029 05/03/2024, 11/27, 07/23/2021, Additional history exists DTaP/Tdap/Td Vaccines (2 - Td or Tdap) 08/22/2035 08/22/2025, 07/07/2016 RSV Patients and Patients Aged 60 years [...] PANEL Routine 08/22/2025 1:36 PM EST Onychomycosis PROPHYLAXIS - ADULT Routine 08/11/2024 3 :00 [...] Relevant to Health Maintenance Results * (ABNORMAL) Comprehensive Metabolic Panel (08/22/2025 1:36 PM EST) Sodium 139 135 - 145 mmol/L [facility] Potassium 4.5 3.3 - 5.1 mmol/L [facility] Comment:Mild Hemolysis.Inter pret result with caution Chloride 106 96 - 108 mmol/L [facility] Carbon Dioxide 22 22 - 29 mmol/L [facility] Anion Gap 16 12 - 20 [facility] Urea Nitrogen (BUN) 14 9 - 16 mg/dL [facility] Creatinine, Serum 0.88 0.5 - 1.4 mg/dL [facility] Estimated Glomerular Filt Rate >60 [facility] Comment:Chronic Kidney Disea se: Estimated GFR < 60 mL/min/1.68d1Aeiyuf Kidney Disease: Estimated GFR < 15 mL/min/1.73m2 Glucose 146(H) 60 - 115 mg/dL [facility] Calcium 9.2 8.4 - 10.2 mg/dL [facility] Bilirubin, Total 0.3 0.0 - 1.0 mg/dL [facility] Aspartate Amino Transferase 33 5 - 37 U/L [facility] Comment:Mild Hemolysis.Inter pret result with caution Alanine Aminotransferase 21 0 - 40 U/L [facility] Total Protein 8.0 6.5 - 8.0 g/dL [facility] Comment:Mild Hemolysis.Inter pret result with caution Albumin Level 4.7 3.5 - 5.0 g/dL [facility] Alkaline Phosphatase 79 39 - 117 U/L [facility] Blood Venous blood specimen / Unknown 08/22/2025 1:36 PM EST 08/22/2025 3:[address] Gan MD LAB BLOOD ORDERABLES Final Re sult [facility] [address] [place], [place] [phone] * (ABNORMAL) Lipid Panel, Standard (05/03/2024 11:52 AM EDT) Triglycerides 196(H) <150 mg/dL [facility] Comment:Desirable Triglyceri de: less than 150 mg/dLBorderline High Triglyceride 150-199 mg/dLHigh Triglyceride: 200-499 mg/dLVery High Triglyceride: greater than or equal to 5OO mg/dL Cholesterol 263(H) <200 mg/dL [facility] Comment:Desirable Cholestero l: less than 200 mg/dLBorderline High Cholesterol: 200-239 mg/dLHigh Cholesterol: greater than 239 mg/dL LDL Cholesterol Calculated 174(H) <100 mg/dL [facility] Comment:Desirable LDL: less than 100 mg/dLNear Optimal/Above Optimal LDL: 110- 129 mg/dLBorderline High LDL: 130-159 mg/dLHigh LDL: 160-189 mg/dLVery High LDL: greater than or equal to 190 mg/dL HDL Cholesterol 50 >40 mg/dL [facility] Comment:Desirable HDL: great er than 40 mg/dL Note: This HDL assay may give artificially low results in patients with liver disease. Blood Venous blood specimen / Unknown 05/03/2024 11:52 AM EDT 05/03/2024 1:[address] Gan MD LAB BLOOD ORDERABLES Final Re sult [facility] [address] [place] [phone] * Cologuard?? colon cancer screening (07/22/2023 8:44 PM EDT) Cologuard Result Negative Negative 07/31/20 5:33 PM EDT [facility] (CLIA #:[id number]) Comment: NEGATIVE TEST RESULT. A negative Cologuard [...] (Anastacia White al, N Engl J Med 2014;370(14):2186-0747) The normal value (reference range) for this assay is negative. COLOGUARD RE-SCREENING RECOMMENDATION: Periodic colorectal cancer screening is an important part of preventive healthcare for asymptomatic individuals at average risk for colorectal cancer. Following a negative Cologuard result, the [place] [employer] Society and U.S. Multi-Society Task Force screening guidelines recommend a Cologuard re-screening interval of 3 years. References: [place] [employer] Guideline for Colorectal Cancer Screening: https://www.cancer.org/cancer/dhmfy-khlvhw-xgwppp/jfljztnlm-fqsqvrdjp-mwmngsf/ac s-rec ommendations.html.; Ho DK, Laure VIVAS, Milena VidesK, Colorectal Cancer Screening: Recommendations for Physicians and Patients from the U.S. Multi-Society Task Force on Colorectal Cancer Screening , Am J Gastroenterology 2017; 112:3671-3180. TEST DESCRIPTION: Composite algorithmic analysis of stool [...] (Anastacia White al, N Engl J Med 2014;370(14):3084-6719.) Cologuard may produce a false negative or false positive result (no colorectal cancer or precancerous polyp present at colonoscopy follow up). A negative Cologuard test result does not guarantee the absence of CRC or advanced adenoma (pre-cancer). The current Cologuard screening interval is every 3 years. ([place] [employer] Society and U.S. Multi-Society Task Force). Cologuard performance data in a 10,000 patient pivotal study using colonoscopy as the reference method can be accessed at the following location: www.Telespree.Artisan Mobile/results. Additional description of the Cologuard test process, warnings and precautions can be found at www.Couplewiserd.Artisan Mobile. Stool specimen (specimen) 07/22/2023 8:44 PM EDT 07/24/2023 11:[address] Gan MD LAB MOLECULAR DIAGNOSTICS ORD ERABLES Final Result Performing Organization Address City/[facility]/ZIP Co de Phone Number [facility] (CLIA #:[id number]) [address] [place] [address], * HEPATITIS C AB W/REFL TO HCV RNA, QN, PCR (03/12/2021 3:37 PM EDT) HEPATITIS C ANTIBODY NON-REACT KEVAN NON-REACT KEVAN [facility] INDEX 0.01 <1.00 [facility] Comment: HCV antibody was non-reactive. There is no laboratory evidence of HCV infection. In most cases, no further action is required. However, if recent HCV exposure is suspected, a test for HCV RNA (test code 73141) is suggested. For additional information please refer to http://education.Liqueo/faq/BUD45g4 (This link is being provided for informational/ educational purposes only.) 03/12/2021 3:37 PM EDT Mohini Maddox RIPSAW OPERATOR HISTORICAL/NON ORDERABLE LABS Final Result Performing Organization Address [facility] Co de Phone Number [facility] [address] [place] [address], * HIV 1/2 ANTIGEN/ANTIBODY,FOURTH GENERATION W/RFL (03/12/2021 11:45 AM EDT) HIV-1/2 ANTIGEN AND ANTIBODIES, 4TH GENERATION W/ REFLEX TNP [facility] Comment: TEST NOT PERFORMED Duplicate test. 03/12/2021 11:4 5 AM EDT us Mohini Maddox RIPSAW OPERATOR LAB BLOOD ORDERABLES Final Res ult [facility] [address] from Last 3 Months or Most Recently Relevant to Health Maintenance Insurance [employer] PARTIAL DENTAL - [employer] [place] STAND ADULT DENTAL - HSN PARTIAL (MEDICAID) Advance Directives Documents on File Type Date Recorded Patient Compound Worker Expl anation Advance Directives and Living Will 03/09/2024 9:01 AM [place] Health Care Proxy Care Teams Manager Consumer Relationship Specialty Start Date End Date Ave Gan MD [address] [place] [phone] PCP - General Family Medicine 05/30/21
--- OUTSIDE RECORDS SUMMARY | 2025-08-22 18:22 | XMS_ITS | Encounter Summary ---
Author Organization [employer] Address [address] 7 [place] [address] Care Team Providers Care Cloth Seconds Sorter Name Role Phone Ave Gan MD Primary Care Provider [phone] Encounter Details Date Type Department Care Team (Latest Contact Info) Description 08/22/2025 Travel Social History Tobacco Use Types Packs/Day Years [...] Description 09/02/2025 10:30 AM EST Clinical Support [facility] PED[facility] [address] [place] [address] documented as of this encounter Visit Diagnoses Not on filedocumented in this encounter Additional Health Concerns Assessment Noted Time PHQ-9 Depression Total Score: 0 04/18/20 25 4:11 PM EDT documented as of this encounter Care Teams Cloth Seconds Sorter Relationship Specialty Start Date End Date Ave Gan MD [address] [place] [address] PCP - General Family Medicine 05/30/21 documented as of this encounter
--- OUTSIDE RECORDS SUMMARY | 2025-08-22 18:22 | XMS_ITS | Encounter Summary ---
Author Organization [facility] [employer] Address [address] [place] [address] Care Team Providers Care Shake Loader Name Role Phone Ave Gan MD Primary Care Provider [phone] Reason for Visit * Reason Onset Date Comments Call Back Request 11/25/2023 Encounter Details Date Type Department Care Team ([facility] Contact Info) Description 11/25/2023 Telephone [facility] [address] [place], [place] [phone] [address] Gan MD [address] [place] [address] Call Back Request Social History Tobacco Use [...] to BP medication. Please contact sister at [phone] documented in this encounter Plan of Treatment Upcoming Encounters Date Type Department Care Team (Late st Contact Info) Description 09/02/2025 10:30 AM EST Clinical Support [facility] [address] [place] [address] documented as of this encounter Visit Diagnoses Not on filedocumented in this encounter Additional Health Concerns Assessment Noted Time PHQ-9 Depression Total Score: 23 024 1:42 PM EST documented as of this encounter Care Teams Shake Loader Relationship Specialty Start Date End Date Ave Gan MD [address] [place] [address] PCP - General Family Medicine 05/30/21 documented as of this encounter
--- OUTSIDE RECORDS SUMMARY | 2025-08-22 18:22 | XMS_ITS | Encounter Summary ---
Author Organization [employer] Address [address] [place] [address] [place] [address] Care Team Providers Care In House Cra Name Role Phone Ave Gan MD Primary Care Provider [phone] Reason for Visit * Reason Comments Med Refill Encounter Details Date Type Department Care Team ([facility] st Contact Info) Description 05/27/2025 Refill [facility] [address] [place], [place] [phone] [address] Gan MD [address] [place] [address] Hypokalemia Social History Tobacco Use Types Packs/Day [...] AM EST Clinical Support [facility] [address] [place] [address] documented as of this encounter Visit Diagnoses Diagnosis Hypokalemia Hypopotassemia documented in this encounter Additional Health Concerns Assessment Noted Time PHQ-9 Depression Total Score: 0 04/18/20 25 4:11 PM EDT documented as of this encounter Care Teams In House Cra Relationship Specialty Start Date End Date Ave Gan MD [address] [place] [phone] PCP - General Family Medicine 05/30/21 documented as of this encounter
--- OUTSIDE RECORDS SUMMARY | 2025-08-22 18:22 | XMS_ITS | Encounter Summary ---
Author Organization [employer] Address [address] [place] [address] Care Team Providers Care Administration Internship Name Role Phone Ave Gan MD Primary Care Provider [phone] Reason for Visit * Reason Onset Date Comments Referral 11/24/2023 Encounter Details Date Type Department Care Team ([facility] st Contact Info) Description 11/24/2023 Telephone [facility] [address] [place], [place] [phone] Ave Gan MD [address] [place] [address] Referral Social History Tobacco Use Types Packs/Day [...] Description 09/02/2025 10:30 AM EST Clinical Support [facility] [address] [place] [address] documented as of this encounter Visit Diagnoses Not on filedocumented in this encounter Additional Health Concerns Assessment Noted Time PHQ-9 Depression Total Score: 23 024 1:42 PM EST documented as of this encounter Care Teams Administration Internship Relationship Specialty Start Date End Date Ave Gan MD [address] [place] [address] PCP - General Family Medicine 05/30/21 documented as of this encounter
--- OUTSIDE RECORDS SUMMARY | 2025-08-22 18:22 | XMS_ITS | Encounter Summary ---
Author Organization [employer] Address [address] [place] [address] [address] [place] [address] Care Team Providers Care Windows Systems Architect Name Role Phone Ave Gan MD Primary Care Provider [phone] Encounter Details Date Type Department Care Team ([facility] st Contact Info) Description 06/29/2024 Orders Only [facility]S [address] [place], [place] [phone] Mohini Pierce FNP [address] [place] [address] Primary hypertension (Primary Dx) Social History Tobacco [...] Description 09/02/2025 10:30 AM EST Clinical Support [facility] [address] [place] [address] Scheduled Orders Name Type Priority Associated Diagnoses Orde r Schedule Basic Metabolic Panel Lab Routine Primary hypertension Expected: 06/29/2024 (Approximate), Expires: 06/29/2025 documented as of this encounter Visit Diagnoses Diagnosis Primary hypertension- Primary Unspecified essential hypertension documented in this encounter Additional Health Concerns Assessment Noted Time PHQ-9 Depression Total Score: 23 024 1:42 PM EST documented as of this encounter Care Teams Windows Systems Architect Relationship Specialty Start Date End Date Ave Gan MD [address] [place] [phone] PCP - General Family Medicine 05/30/21 documented as of this encounter
--- OUTSIDE RECORDS SUMMARY | 2025-08-22 18:22 | XMS_ITS | Data Portability ---
Author Organization [place] - [facility], Allergy Address [address] [place] [id number] Care Team Providers Care Regulatory Lead Name Role Phone Unavailable Primary Care Provider Assessment Encounter Date Assessment [...] as scheduled with Dr. Barnard for reevaluation. Not available 10/06/2024 15:22:03 10/14/2024 10/14/2024 1. [...] Modified Time Details Appointments Establish ed 30 2025 03:00P Emilia POSEY MD Not available Not available Not [...] mcg/actua tion nasal spray,chika pension 2024 025 [facility], [address] [place], [place], [phone], 10/14/2024 16:29:44 Flonase Allergy Relief 50 mcg/actua tion nasal spray,chika pension 2023 025 [facility], [address] [place], [place], [phone], 10/14/2024 16:14:40 Patient TargetsNo targets recorded. Patient InstructionsNo instructions recorded. Reason for Referral None Reported. Results Created Date Observation Date Name Description Value Unit Range Abnormal Flag Note LastModifiedBy Organization Detail LastModifiedTime Result Notes None recorded. Problems Name Problem SNOMED Code Status Onset Date Resolution Date Notes Provider Name and Address Organization Details Recorded Time Nasal congestion 84184836 Active 2023 ELICIA ARZOLA PA-C [address] [facility],[place] [address], [place], [address], [facility] - [facility] 4 15:22:39 Allergic rhinitis 48324281 Active 2023 ELICIA ARZOLA PA-C [address] [facility], [address] [facility], [place], [address], [facility] - [facility] 4 15:22:44 Posterior rhinorrhea 37718883 Active 2023 ELICIA ARZOLA PA-C [address] [facility], [place], [address], [place] - [facility] 4 15:22:54 Chronic cough 52769897 Active 2023 ELICIA ARZOLA PA-C [address] [facility], [place], [address], [facility] - [facility] 4 15:22:58 Hypertrophy of nasal turbinates 82201731 Active 2023 MARY GRACE BARNARD MD [address] [facility], [place], [address], [place] - [facility] 4 22:14:48 Deviated nasal septum 419405358 Active 2023 MARY GRACE BARNARD MD [address] [facility], [place], [address], [place] - [facility] 4 22:14:53 Chronic rhinosinusitis with multiple nasal polyps Active 2023 MARY GRACE BARNARD MD [address] [facility], [place], [address], [place] - [facility] 22:15:04 Postoperative hemorrhage 906879382 Active 2023 FLETCHER POSEY MD [address] [facility], [place], [address], [facility] - [facility] 16:14:43 Problem Notes None recorded. Procedures Surgical History Date Name Laterality Status Provider Name and Address Organization Details Recorded Time 10/14/19 25 JMSNasal/Sinus Endoscopy-DEBRID EMENT completed MARY GRACE BARNARD MD [address] [facility],[address], [address], [facility] - [facility] 10/15/2024 07:28:02 10/06/19 25 JMSNasal/Sinus Endoscopy-DEBRID EMENT completed ELICIA ARZOLA PA-C [address] [facility],[address], [address], [facility] - [facility] 10/06/2024 15:20:46 09/15/20 24 functional endoscopic sinus surgery completed MARY GRACE BARNARD MD [address] [facility],[address], [address], [facility] - [facility] 09/16/2024 16:35:27 09/15/20 24 reduction of nasal turbinate completed MARY GRACE BARNARD MD [address] [facility],[address], [address], [place] - [facility] 09/16/2024 16:35:23 08/10/20 24 JMSNasal/Sinus Endoscopy completed MARY GRACE BARNARD MD [address] [facility],[place] [address], [place], [address], [facility] - [facility] 08/10/2024 22:09:52 05/26/20 24 Fiberoptic Laryngoscopy (Comprehensive) completed ELICIA ARZOLA PA-C [address] [facility] [address], [place], [address], [place] - [facility] 05/26/2024 15:22:33 Imaging Results None recorded. Procedure Notes None recorded. Medical Equipment None Reported. Allergies No known drug allergies Medications Name Sig Start Date Stop Date Status Note LastModified by Organization Details LastModified Time blood pr monit omr [id number] Check blood pressure on arm as directed EVERY DAY 10/14 completed Not Available Not Available Not Available multivitami n tablet TAKE ONE TABLET ONCE DAILY active Not Available Not Available No t Available cyclobenzap rine 10 mg tablet 1 TABLET 3 TIMES A DAY NEEDED 10/14 completed Not Available Not Available Not Available buspirone 5 mg tablet TAKE ONE TABLET THREE TIMES DAILY NEEDED 10/14 completed Not Available Not Available Not Available Nasal Dongola (oxymetazol ine) 0.05 % USE TWO SPRAYS [...] mg tablet TAKE ONE TABLET EVERY DAY active Not Available Not Available No t Available terbinafine HCl 250 mg tablet TAKE ONE TABLET EVERY DAY active Not Available Not Available No t Available Deep Sea Nasal 0.65 % spray aerosol USE FOUR SPRAYS IN EACH NOSTRIL THREE TIMES DAILY FOR nasal bleeding 10/14 completed Not Available Not Available Not Available potassium chloride ER 20 mEq tablet,exte nded release(par t/cryst) TAKE ONE TABLET DAILY, DO NOT BREAK, CRUSH, DISSOLVE OR CHEW active Not Available Not Available No t Available amlodipine 10 mg tablet TAKE ONE TABLET EVERY DAY active Not Available Not Available No t [...] completed Not Available Not Available Not Available hydrochloro thiazide 25 mg tablet TAKE ONE TABLET EVERY DAY active Not Available Not Available No t Available zolpidem 10 mg tablet TAKE ONE [...] completed Not Available Not Available Not Available naproxen 500 mg tablet TAKE ONE TABLET TWICE DAILY active Not Available Not Available No t Available spironolact one 50 mg tablet TAKE [...] Not Available Not Available No t Available potassium chloride ER 10 mEq tablet,exte nded release(par t/cryst) TAKE 1 TABLET (10 MEQ) BY MOUTH ONCE PER DAY. DO NOT CRUSH OR CHEW. active Not Available Not Available No t [...] Relief 50 mcg/actuati on nasal spray,suspe nsion Dongola 2 sprays every day by intranasa l [...] Updated DateTime 10/06/2024 172.72 cm Dannie Swann [place] - [facility] 10/06/2024 14:27:57 Date Recorded Body height Body mass index (BMI) Body weight Provider Name and Address Organization Details Last Updated DateTime 10/14/2024 172.72 cm 31.8 kg/m2 96411.81 g April Amaya [place] - [facility] 10/14/2024 15:58:29 Date Recorded Body height Body mass index (BMI) Body weight Provider Name and Address Organization Details Last Updated DateTime 08/10/2024 172.72 cm 34.7 kg/m2 351804.06 g Columba Bradford [place] - [facility] 08/10/2024 15:26:36 Social History None recorded. Functional Status None recorded. Mental Status None recorded. Family History Nothing Reported. Medical History No medical history recorded. Past Encounters Encounter ID Performer Location Encounter Start Date Encounter Closed Date Diagnosis/Indication Diagnosis SNOMED-CT Code Diagnosis ICD10 Code Diagnosis IMO Codes Diagnosis Note [id number] ELICIA ARZOLA PA-C [facility] [address] [address] 05/26/2024 14:14:57 05/26/2024 15:51:43 Nasal congestion 37356157 R09.81 Allergic rhinitis 676034 04 J30.89 Posterior rhinorrhea 758 97591 R09.82 Chronic cough 15287153 R 05.3 [id number] MARY GRACE BARNARD MD [facility] [address] [address] 08/10/2024 14:57:09 08/10/2024 16:27:20 Chronic rhinosinusitis with multiple nasal polyps 3903307188 J32.4 Hypertroph y of nasal turbinates 39838780 J34.3 Deviated nasal septum 12 3447242 J34.2 [id number] MARY GRACE BARNARD MD [facility] [address] [address] 09/16/2024 16:39:59 09/16/2024 17:04:19 Chronic rhinosinusitis with multiple nasal polyps 7236799163 J32.4 [id number] MIMI MCKEON PA-C [facility] [address] [address] 09/23/2024 13:32:12 09/23/2024 14:49:59 Chronic rhinosinusitis with multiple nasal polyps 8058193262 J32.4 Postoperat adriana hemorrhage 342103086 J95.830 [id number] ELICIA ARZOLA PA-C [facility] [address] [address] 10/06/2024 14:20:30 10/06/2024 15:01:54 Chronic rhinosinusitis with multiple nasal polyps 6513828356 J32.4 [id number] MARY GRACE BARNARD MD [facility] [address] [address] 10/14/2024 15:50:58 10/14/2024 16:13:58 Chronic rhinosinusitis with multiple nasal polyps 1861489041 J32.4 Health Concerns Section Related Observation LastModified by Organization Detai ls LastModified Time None Recorded Concern Status LastModified by Organization Details LastModified Time None Recorded Advance Directives Directive None Recorded Payers Insurance Date Sequence Insurance Name Policy Number Policy Walters Covered Member ID Walters Member ID Guarantor Name 05/26/2024 1 [place] [id number] [facility] 07/22/2025 1 [place] [facility] [place] [id number] [facility] Notes Date Note Type Note Provider Name [...] right septal deviation. MARY GRACE BARNARD MD [address] [facility],[address], [place], [address], [facility] - [facility] 08/10/2024 22:17:09 09/23/2024 text/html ROS as noted in the [facility] 54 year old male worked in urgently for post-operative bleeding. Underwent FESS with polypectomy 09/[address] Barnard. States he has been very congested and has been blowing his nose. He had some bleeding from both nostrils, most recently last night. He has not been using nasal sprays. Also states left ear feels blocked. FLETCHER MADDOX MD [address] [facility],[address], [place], [address], [facility] - [facility] 09/23/2024 16:14:59 10/06/2024 text/html ROS as noted in the [facility] 54 year old male presents s/p bilateral FESS with polypectomy on 09/16/[address] Barnard. He is doing well postoperatively. Using saline rinses. Nasal congestion and rhinitis are improved. No further epistaxis. GILDARDO JIMENEZ MD [address] [facility],[address] [place] [address], [address], [facility] - [facility] 10/06/2024 16:31:29 10/14/2024 text/html ROS as noted in the [facility] 54yo gentleman with chronic rhinosinusitis with nasal polyps s/p FESS on 09/15/25 who presents for postoperative debridement. He previously completed debridement earlier this month.He reports using his sinonasal rinses daily.He reports overall improvement in his breathing and is satisfied with the results. MARY GRACE BARNARD MD [address] [facility] [address] [address], [place], [address], [facility] - [facility] 10/15/2024 07:29:03
--- OUTSIDE RECORDS SUMMARY | 2025-08-22 18:22 | XMS_ITS | Encounter Summary ---
Author Organization [facility] Address [address] [place] [address] [address] [place] [address] Care Team Providers Care Emd Special Education Teacher Name Role Phone Ave Gan MD Primary Care Provider [phone] Reason for Visit * Reason Comments Med Refill Encounter Details Date Type Department Care Team ([facility] st Contact Info) Description 03/03/2025 Refill [facility] [address] [place] [address] Ave Gan MD [address] [place] [address] Social History Tobacco Use Types Packs/Day Years [...] [facility] [address] [place] [address] documented as of this encounter Visit Diagnoses Not on filedocumented in this encounter Additional Health Concerns Assessment Noted Time PHQ-9 Depression Total Score: 23 024 1:42 PM EST documented as of this encounter Care Teams Emd Special Education Teacher Relationship Specialty Start Date End Date Ave Gan MD [address] [place] [address] PCP - General Family Medicine 05/30/21 documented as of this encounter
== END 2025-08-22 13:33 | disposition home or self-care (01) ==
LOC: HO.HHCL 13:32
PROVIDERS: PCP Family Medicine; Visit Provider Family Medicine
DX: B35.1 Tinea unguium (principal)
CPT/HCPCS: 36415; 80053